=== PATIENT | female | born 1945 | race Caucasian/White ===

== ENCOUNTER → 2019-09-25 11:00 | Outpatient (CLI) | payer OTHER, SELFPAY ==
--- NOTE | ~2019-09-25 | XR_ITS ---
XR chest 2V DATE: 09/25/2019 11:20 INDICATION: Dyspnea on exertion TECHNIQUE: PA and lateral views COMPARISON: 03/14/2005 PA and lateral views FINDINGS: There is cardiomegaly with left ventricular enlargement. There is approximately 15 x 25 mm ill-defined density overlying the right upper lobe, appearing more prominent since 03/14/2005; CT thorax should be considered. Otherwise the lungs appear clear of infiltrate or consolidation. There is bilateral hyperinflation. N o pleural effusion or pulmonary vascular congestion or pneumothorax. [place] devices noted in the proximal right humerus. There is diffuse osteopenia. IMPRESSION: Indeterminate opacity overlying right upper lobe; consider CT thorax for further evaluati on Bilateral hyperinflation Cardiomegaly, left ventricular enlargement Osteopenia Reviewed, dictated and finalized at location B. IMPRESSION: Indeterminate opacity overlying right upper lobe; consider CT thora x for further evaluation Bilateral hyperinflation Cardiomegaly, left ventricular enlargement Osteopenia
== END ==
PROVIDERS: PCP Family Medicine Adolescent Medicine; Visit Provider Family Medicine Adolescent Medicine
DX: R06.00 Dyspnea, unspecified (principal); I51.7 Cardiomegaly; M85.80 Other specified disorders of bone density and structure, unspecified site
CPT/HCPCS: 71046

== ENCOUNTER → 2019-09-29 08:43 | Outpatient (CLI) | payer OTHER, SELFPAY ==
--- NOTE | ~2019-09-29 | CT_ITS ---
EXAMINATION: CT chest wo con DATE: 09/29/2019 09:14 INDICATION: Right upper lobe nodule TECHNIQUE: Computed tomography (CT) of the chest was performed without intravenous contrast. The dose -length product (DLP) was 139.27 mGy-cm. Automated exposure control and iterative reconstruction tech nique were employed. COMPARISON: Chest radiograph, 09/25/2019 FINDINGS: There is a 2.9 x 2.7 cm some solid nodule of the right upper lobe, without solid nodular co mponent, corresponding to chest radiographic finding in question. A similar appearing 1.7 x 1.0 cm mondragon bsolid nodule is seen in the right lung apex. There is a 1.1 x 0.7 cm subsolid nodule of the left upp er lobe on image 22. There is no pleural effusion or pneumothorax. No pathologically enlarged thoraci c lymph nodes are identified. The heart size is normal. Calcified coronary artery atherosclerosis is noted. Suture anchors are noted in the right humeral head. There is mild thoracic spondylosis. IMPRESSION: 1. Subsegmental nodule of the right upper lobe corresponding to radiographic finding in question with additional subsegmental nodules as detailed, possibly infectious or inflammatory. Recommend follow-u p low-dose chest CT in three months. Reviewed, dictated and finalized at location B. IMPRESSION: 1. Subsegmental nodule of the right upper lobe corresponding to radiographic fi nding in question with additional subsegmental nodules as detailed, possibly in fectious or inflammatory. Recommend follow-up low-dose chest CT in three months .
== END ==
PROVIDERS: PCP Family Medicine Adolescent Medicine; Visit Provider Family Medicine Adolescent Medicine
DX: R91.1 Solitary pulmonary nodule (principal)
CPT/HCPCS: 71250

== ENCOUNTER → 2019-12-12 08:16 | Outpatient (CLI) | payer OTHER, SELFPAY ==
--- NOTE | ~2019-12-12 | CT_ITS ---
EXAMINATION: CT chest wo con DATE: 12/12/2019 08:31 INDICATION: Right upper lung nodule TECHNIQUE: Computed tomography (CT) of the chest was performed without intravenous contrast. The dose -length product was 130.63 mGy-cm. Automated exposure control and iterative reconstruction technique were employed. COMPARISON: CT dated 09/29/2019 FINDINGS: No thoracic lymphadenopathy. Small pericardial effusion. No significant pleural effusion. H eart size normal. There is atherosclerosis of the aorta and coronary arteries. The upper abdomen is u nremarkable. There has been near complete resolution of patchy upper lobe predominant groundglass opa cities, most likely infectious/inflammatory. There is right upper lobe atelectasis/scarring anteriorl y. Mild thoracic spondylosis with accentuated kyphosis. IMPRESSION: 1. Near complete resolution of patchy groundglass opacities predominantly affecting the right upper l obe, most likely resolving infectious/inflammatory process. Reviewed, dictated and finalized at location B. IMPRESSION: 1. Near complete resolution of patchy groundglass opacities predominantly affec ting the right upper lobe, most likely resolving infectious/inflammatory proces s.
== END ==
PROVIDERS: PCP Family Medicine Adolescent Medicine; Visit Provider Family Medicine Adolescent Medicine
DX: R91.1 Solitary pulmonary nodule (principal)
CPT/HCPCS: 71250

== ENCOUNTER 2020-01-24 13:18 | Outpatient (CLI) | payer OTHER, SELFPAY ==
--- NOTE | ~2020-01-24 | CT_ITS ---
EXAMINATION: CTA abdomen DATE: 01/24/2020 14:07 INDICATION: Hypertension. TECHNIQUE: Computed tomographic angiography (CTA) of the abdomen was performed with 100 mL Omnipaque- 350 intravenous contrast. Automated exposure control and iterative reconstruction technique were empl oyed. The dose-length product was 121.94 mGy-cm. Maximum intensity projection 3D-reconstructions of t he aorta and other arteries were constructed by the technologist on a separate workstation. COMPARISON: None. FINDINGS: The visualized portions of the lung bases demonstrate mild atelectasis. No pleural effusion . There are bilateral posterior diaphragmatic hernias containing fat. Cardiomegaly is noted. No peric ardial effusion. The liver, gallbladder, spleen, pancreas, and adrenal glands are normal. There is co rtical thinning of the kidneys. There are cysts in left kidney measuring up to 4.2 cm. There are no d ilated loops of bowel. There are no pathologically enlarged lymph nodes. There is no free intraperito maximiliano fluid. There is a small sliding hiatal hernia. There is mild aortic atherosclerosis. There is mi ld stenosis of celiac axis, superior mesenteric artery, and the renal arteries. There is no significa nt stenosis of inferior mesenteric artery. There is moderate lumbar spondylosis. There is a hemangiom a in L3 vertebral body. IMPRESSION: 1. No hemodynamically significant renal artery stenosis. 2. Small sliding hiatal hernia. Reviewed, dictated and finalized at location A. N RESOURCES BENEFITS COORDINATOR
[2020-01-24 13:52] LABS: Estimated Glomerular Filt Rate 44
== END 2020-01-24 13:19 | disposition home or self-care (01) ==
PROVIDERS: PCP Family Medicine Adolescent Medicine; Visit Provider Family Medicine Adolescent Medicine
DX: I10 Essential (primary) hypertension (principal); K44.9 Diaphragmatic hernia without obstruction or gangrene
CPT/HCPCS: 74175; Q9967

== ENCOUNTER → 2020-06-15 09:59 | Outpatient (CLI) | payer OTHER, SELFPAY ==
--- NOTE | ~2020-06-15 | DEXA_ITS ---
Bone Density Report Name: Tuyet Iverson Age: 75 Sex: Female Ethnicity: White Date of : 1945 Indication: osteopenia; asthma or emphysema; hysterectomy; postmenopausal Referring Provider: NAIF RODRIGUEZ Study: Bone densitometry was performed. Exam Date: June 15, 2020 Accession number: [id number] Bone Density: Region BMD T-score Z-score Classification AP Spine (L1-L4) 0.936 -1.0 1.4 Normal Femoral Neck (Left) 0.618 -2.1 0.0 Osteopenia Total Hip (Left) 0.783 -1.3 0.5 Osteopenia Femoral Neck (Right) 0.592 -2.3 -0.2 Osteopenia Total Hip (Right) 0.759 -1.5 0.3 Osteopenia Total Hip Mean 0.771 -1.4 0.4 Osteopenia World Health Organization criteria for BMD impression classify patients as: Normal (T-score at or above -1.0), Osteopenia (T-score between -1.0 and -2.5), or Osteoporosis (T-score at or below -2.5). 10-year Fracture Risk(1): Major Osteoporotic Fracture 15% Hip Fracture 4.3% Reported Risk Factors: [place] (), Neck BMD=0.592, BMI=23.1 (1) FRAX(R) Version 3.08. Fracture probability calculated for an untreated patient. Fracture probability may be lower if the patient has received treatment. Previous Exams: Region Exam Age BMD T-score BMD Change BMD Change Date g/cm2 vs Baseline vs Previous AP Spine(L1-L4) 06/15/2020 75 0.936 -1.0 -0.051* -0.030* 08/03/2016 71 0.966 -0.7 -0.021 0.050* 08/08/2013 68 0.916 -1.2 -0.071* -0.044* 11/04/2009 64 0.959 -0.8 -0.027* -0.027* 10/17/2004 59 0.987 -0.5 Total Hip(Left) 06/15/2020 75 0.783 -1.3 -0.095* -0.027 08/03/2016 71 0.810 -1.1 -0.068* 0.065* 08/08/2013 68 0.745 -1.6 -0.133* -0.011 11/04/2009 64 0.756 -1.5 -0.122* -0.122* 10/17/2004 59 0.878 -0.5 Total Hip(Right) 06/15/2020 75 0.759 -1.5 -0.062* -0.016 08/03/2016 71 0.775 -1.4 -0.046* 0.047* 08/08/2013 68 0.727 -1.8 -0.093* -0.023 11/04/2009 64 0.750 -1.6 -0.070* -0.070* 10/17/2004 59 0.821 -1.0 *Denotes significance at 95% confidence level, LSC for AP Spine = 0.022 g/cm2, LSC for Total Hip = 0.027 g/cm2 Clinical Information Provided by Patient: Has used the following medications: Vitamin D, Calcium Has the following medical conditions: Asthma or Emphysema, Hysterectomy Patient maximum height was 61 Menopause Ag
--- NOTE | ~2020-06-15 | MM_ITS ---
EXAMINATION: MM screening wally BI w ena HISTORY: Screening mammogram TECHNIQUE: Craniocaudal and mediolateral oblique 3-D tomosynthesis images were obtained and synthetic 2-D images were generated. CAD analysis was submitted and interpreted. COMPARISON: 01/27/2018 bilateral digital screening mammogram 09/04/2015 diagnostic left digital mammogram and limited left breast ultrasound 08/23/2015 bilateral digital screening mammogram BREAST PARENCHYMAL COMPOSITION: The breasts are heterogeneously dense, which may obscure small masses . FINDINGS: There is a 5.7 x 7.6 mm circumscribed opacity in the upper outer left breast, with halo sig n, most consistent with benign process, likely a cyst. There is no evidence of suspicious mass, calci fication, or architectural distortion to suggest malignancy in either breast. There has been no suspi cious interval change. IMPRESSION: 1. No mammographic evidence of malignancy. 2. Recommend routine screening mammography in one year. BI-RADS Category 2: Benign finding(s). Reviewed, dictated and finalized at location A.
== END ==
PROVIDERS: PCP Family Medicine Adolescent Medicine; Visit Provider Family Medicine Adolescent Medicine
DX: Z12.31 Encounter for screening mammogram for malignant neoplasm of breast (principal); Z78.0 Asymptomatic menopausal state; M85.89 Other specified disorders of bone density and structure, multiple sites
CPT/HCPCS: 77063; 77067; 77080

== ENCOUNTER → 2020-09-23 12:05 | Outpatient (CLI) | payer OTHER, SELFPAY ==
--- NOTE | ~2020-09-23 | XR_ITS ---
XR knee RT min 4V DATE: 09/23/2020 12:19 INDICATION: Right knee pain TECHNIQUE: [place] and standing AP, PA and lateral views COMPARISON: None FINDINGS: There is slight periarticular spurring of the patella. There is moderate loss of height of the medial compartment joint space. No fracture or dislocation or joint effusion. No periosteal reaction or bone destruction or radiopaqu e intra-articular loose body. IMPRESSION: Mild osteoarthritis Reviewed, dictated and finalized at location B. IMPRESSION: Mild osteoarthritis
== END ==
PROVIDERS: PCP Family Medicine Adolescent Medicine; Visit Provider Physician Assistant
DX: M25.561 Pain in right knee (principal); M18.11 Unilateral primary osteoarthritis of first carpometacarpal joint, right hand
CPT/HCPCS: 73564

== ENCOUNTER → 2021-06-17 10:09 | Outpatient (CLI) | payer OTHER, SELFPAY ==
--- NOTE | ~2021-06-17 | MM_ITS ---
EXAMINATION: MM screening wally BI w ena HISTORY: Screening TECHNIQUE: Craniocaudal and mediolateral oblique 3-D tomosynthesis images were obtained and synthetic 2-D images were generated. CAD analysis was submitted and interpreted. COMPARISON: Comparison to multiple prior studies sequentially, with oldest reviewed study dated 02/2015. BREAST PARENCHYMAL COMPOSITION: The breasts are heterogeneously dense, which may obscure small masses . FINDINGS: There is no evidence of suspicious mass, calcification, or architectural distortion to sugg est malignancy in either breast. There has been no suspicious interval change. IMPRESSION: 1. No mammographic evidence of malignancy. 2. Recommend routine screening mammography in one year. BI-RADS Category 1: Negative Reviewed, dictated and finalized at location A.
== END ==
PROVIDERS: PCP Family Medicine Adolescent Medicine; Visit Provider Physician Assistant
DX: Z12.31 Encounter for screening mammogram for malignant neoplasm of breast (principal)
CPT/HCPCS: 77063; 77067

== ENCOUNTER → 2021-06-24 14:52 | Outpatient (CLI) | payer OTHER, SELFPAY ==
--- NOTE | ~2021-06-24 | XR_ITS ---
EXAMINATION: XR chest 2V Exam Date/Time: 06/24/2021 15:08 CDT CLINICAL HISTORY: R06.00 - Dyspnea, unspecified Comparison: 09/25/2019.. RESULT: Lines, tubes, and devices: Right humeral head soft tissue anchors. Lungs and pleura: Clear. Cardiomediastinal silhouette: Stable cardiomediastinal silhouette. Other: No acute osseous or upper abdominal finding. IMPRESSION: No acute cardiopulmonary process Reviewed, dictated and finalized at location K.
== END ==
PROVIDERS: PCP Family Medicine Adolescent Medicine; Visit Provider Family Medicine Adolescent Medicine
DX: R06.00 Dyspnea, unspecified (principal)
CPT/HCPCS: 71046

== ENCOUNTER → 2021-07-19 09:05 | Outpatient (CLI) | payer OTHER, SELFPAY ==
--- NOTE | ~2021-07-19 | MR_ITS ---
EXAMINATION: MR knee RT wo con DATE: 07/19/2021 09:44 INDICATION: Right knee pain. TECHNIQUE: Magnetic resonance imaging (MRI) of the right knee was performed without intravenous contr ast. Sequences included axial PD-weighted FS FSE, coronal PD-weighted FSE and PD-weighted FS FSE, sag ittal PD-weighted FSE, and sagittal T2-weighted FS FSE. COMPARISON: Right knee radiographs 09/23/2020 FINDINGS: Medial compartment: There is a complex tear involving body and posterior horn of medial meniscus. There is partial-thickn ess cartilage loss of tibial condyle, deep at the central and medial articular surface where there is mild subchondral edema-like marrow signal intensity. There is full-thickness cartilage loss of femor al condyle involving the posterior articular surface. There is extensive partial thickness cartilage loss of femoral condyle. Osteophytes are noted. Lateral compartment: Lateral meniscus is normal. There is cartilage surface irregularity of tibial condyle and femoral con dyle. Osteophytes are noted. Patellofemoral compartment: There is deep partial thickness cartilage loss of patellar median ridge and medial facet with mild mondragon bchondral edema-like marrow signal intensity. There is shallow partial-thickness cartilage loss of tr ochlea. Osteophytes are noted. Ligaments and tendons: The anterior and posterior cruciate ligaments are normal. There are changes of prior sprains of media l collateral ligament and fibular collateral ligament characterized by thickening and increased signa l intensity proximally. There is mild patellar tendinopathy. Fluid: There is a moderate-sized knee joint effusion. There is a large ruptured Mccord's cyst. IMPRESSION: 1. Severe chondrosis of medial compartment, moderate chondrosis of patellofemoral compartment, and mi ld chondrosis of lateral compartment. 2. Complex tear of medial meniscus. 3. Moderate-sized knee joint effusion. 4. Large ruptured Mccord's cyst. Reviewed, dictated and finalized at location A. IMPRESSION: 1. Severe chondrosis of medial compartment, moderate chondrosis of patellofemor al compartment, and mild chondrosis of lateral compartment. 2. Complex tear of medial meniscus. 3. Moderate-sized knee joint effusion. 4. Large ruptured Mccord's cyst.
== END ==
PROVIDERS: PCP Family Medicine Adolescent Medicine; Visit Provider Family Medicine Adolescent Medicine
DX: M25.561 Pain in right knee (principal); M22.2X1 Patellofemoral disorders, right knee; S83.231A Complex tear of medial meniscus, current injury, right knee, initial encounter; M25.461 Effusion, right knee; M66.0 Rupture of popliteal cyst
CPT/HCPCS: 73721

== ENCOUNTER 2021-09-20 08:27 | Emergency (ER) | payer OTHER, SELFPAY ==
--- NOTE | ~2021-09-20 | XR_ITS ---
XR chest 2V DATE: 09/20/2021 09:02 INDICATION: Cough. History of asthma, hypertension. TECHNIQUE: PA and lateral views COMPARISON: 06/24/2021 2 view chest FINDINGS: Bilateral hyperinflation with increased retrosternal airspace, flattening the diaphragm, co nsistent with COPD. No pulmonary infiltrate or consolidation, pleural effusion or pulmonary vascular congestion or pneumothorax. Cardiomegaly. Osteopenia. IMPRESSION: COPD, cardiomegaly No active pulmonary disease Reviewed, dictated and finalized at location A.
[2021-09-20 08:33] VITALS: BP 142/74; PULSE 90; RESP 16; TEMP 37.7; O2SAT 100
--- NOTE | 2021-09-20 08:40 | ED.URI ---
HPI - URI/Sore Throat General Chief Complaint: Upper Respiratory Infection Stated Complaint: SORE THROAT/RUNNY NOSE/DIZZY/+ COVID Time Seen by Provider: 09/20/21 08:42 Source: patient and RN notes reviewed Mode of arrival: ambulatory Limitations: no limitations History of Present Illness HPI Narrative: 76-year-old female with history of asthma presents with concern for positive COVID test. She reports her symptoms started yesterday with fatigue, body aches, dizziness, sore throat, nasal congestion. She reports she took an at-home COVID test today that was positive. She is interested in a COVID antiviral medication. She denies cough, shortness of breath. She denies needing to use her rescue inhaler since she has had symptoms. MD elicited complaint: sore throat and nasal congestion Related Data Home Medications Medication Instructions Recorded Confirmed aspirin 81 mg tablet,delayed 81 mg PO DAILY 06/24/21 09/20/21 release (Adult Aspirin Regimen) coenzyme Q10 75 mg capsule (Ultra 75 mg PO DAILY 06/24/21 09/20/21 CoQ10) fluticasone 500 mcg-salmeterol 50 1 inh inhalation QHS 06/24/21 09/20/21 mcg/dose blistr powdr for inhalation (Wixela Inhub) Allergies Allergy/AdvReac Type Severity Reaction Status Date / Time No Known Allergies Allergy Unknown Verified 09/20/21 08:34 Review of Systems Review of Systems: CONSTITUTIONAL: Reports malaise, fatigue. Denies chills, sweats, or fever. EYES: Denies visual changes, redness, or discharge. ENT: Reports rhinorrhea, congestion, sore throat. Denies sinus pain, otalgia CARDIOVASCULAR: Denies chest pain, palpitations, or edema. RESPIRATORY: Denies cough. Denies dyspnea. GASTROINTESTINAL: Denies abdominal pain, nausea, vomiting, diarrhea SKIN: Denies rash or itching. MUSCULOSKELETAL: Reports myalgia. NEUROLOGIC: Denies headache. All systems reviewed & are unremarkable except as noted in HPI and below [facility] Past Medical History Medical History (Updated 09/20/21 @ 09:23 by Seble Meyers NP) Aortic atherosclerosis CT scan 11/2019 Asthma Benign hypertension with CKD (chronic kidney disease) stage III Bilateral carotid artery stenosis 06/2018 CAD (coronary artery disease) CT scan 09/2019 High cholesterol Hypertension Insomnia Major depressive disorder, recurrent, mild Mild persistent asthma Osteopenia Peripheral neuropathy Pure hypercholesterolemia, unspecified Stage 3a chronic kidney disease (CKD) Urge incontinence of urine Wears glasses Surgical History Surgical History History of foot surgery 2008, sunitaes History of hysterectomy History of repair of rectocele History of repair of rotator cuff 2017, right Family History Family History (Updated 08/21/21 @ 10:24 by Chelsie Perry, RT(R)) Unknown Cancer Heart disease Daughter Breast cancer Father Hypercholesteremia Mother Hypercholesteremia Other Asthma Diabetes mellitus Hypertension Social History Social History (Updated 08/21/21 @ 10:24 by Chelsie Perry, RT(R)) Smoking status: Never smoker Second hand tobacco smoke exposure: No Alcohol intake: current Alcohol use details: socially Substance use: never Substance use type: does not use and tranquilizers Gender identity (if verbalized by the patient): Female Sexual Orientation (if Verbalized by the Patient): Straight or Heterosexual Spiritual care concerns: No Agree to blood products: Yes Comments At time of signature, agree with nursing past medical, surgical, social and family history. There is no relevant family history pertinent to the presenting complaint Exam Narrative: GENERAL: Nontoxic-appearing and in no acute distress. HEAD: Normocephalic EYES: PERRLA, conjunctivae clear ENT: Nares clear. Mucous membranes moist. TM pearly ca with dull light reflex bilaterally; no tragal tenderness. Oropharynx not erythematous without les
== END 2021-09-20 09:30 | disposition home or self-care (01) ==
PROVIDERS: Emergency Provider Nurse Practitioner; PCP Family Medicine Adolescent Medicine
DX: U07.1 COVID-19 (principal); I70.0 Atherosclerosis of aorta; J45.909 Unspecified asthma, uncomplicated; I12.9 Hypertensive chronic kidney disease with stage 1 through stage 4 chronic kidney disease, or unspecified chronic kidney disease; N18.30 Chronic kidney disease, stage 3 unspecified; E78.00 Pure hypercholesterolemia, unspecified; I25.10 Atherosclerotic heart disease of native coronary artery without angina pectoris; M81.0 Age-related osteoporosis without current pathological fracture; G62.9 Polyneuropathy, unspecified; Z79.82 Long term (current) use of aspirin; I65.29 Occlusion and stenosis of unspecified carotid artery; F32.9 Major depressive disorder, single episode, unspecified
CPT/HCPCS: 71046; 99213; G0463

== ENCOUNTER 2022-06-13 11:18 | Emergency (ER) | payer OTHER, SELFPAY ==
[2022-06-13 11:43] VITALS: BP 169/65; PULSE 60; RESP 16; TEMP 36.8; O2SAT 98
--- NOTE | 2022-06-13 11:52 | PC.NURSE ---
pt and family approached desk and states they are deciding to leave but will come back if new or worsening symptoms.
== END 2022-06-13 12:02 | disposition left against medical advice (07) ==
LOC: ANHED 11:57
PROVIDERS: PCP Family Medicine Adolescent Medicine
DX: I10 Essential (primary) hypertension (principal)
CPT/HCPCS: 99199

== ENCOUNTER → 2022-07-24 10:14 | Outpatient (CLI) | payer OTHER, SELFPAY ==
--- NOTE | ~2022-07-24 | MM_ITS ---
EXAMINATION: MM screening wally BI w ena HISTORY: Screening mammogram TECHNIQUE: Craniocaudal and mediolateral oblique 3-D tomosynthesis images were obtained and synthetic 2-D images were generated. CAD analysis was submitted and interpreted. COMPARISON: June 17, 2021, June 15, 2020, February 10, 2018 bilateral screening mammogram examinati ons BREAST PARENCHYMAL COMPOSITION: The breasts are heterogeneously dense, which may obscure small masses . FINDINGS: Circumscribed 1.8 mm opacity is noted in the mid to upper inner right breast Approximate 2.2 x 3.5 mm circumscribed opacity is noted in the lower inner left breast. The moderately dense nodular fibroglandular stroma may obscure additional smaller masses. Bilateral d iagnostic mammography and ultrasound examination are recommended. IMPRESSION: 1. Possible bilateral breast masses 2. Bilateral diagnostic mammography and ultrasound examination are recommended BI-RADS Category 0: Incomplete: Needs additional imaging evaluation. Reviewed, dictated and finalized at location A.
== END ==
PROVIDERS: PCP Family Medicine Adolescent Medicine; Visit Provider Family Medicine Adolescent Medicine
DX: Z12.31 Encounter for screening mammogram for malignant neoplasm of breast (principal)
CPT/HCPCS: 77063; 77067

== ENCOUNTER → 2022-09-17 08:43 | Outpatient (CLI) | payer OTHER, SELFPAY ==
--- NOTE | ~2022-09-17 | MMUS_ITS ---
EXAMINATION: MM diagnostic wally BI w ena, US breast BI complete HISTORY: Possible bilateral breast masses reported on 07/24/2022 bilateral screening mammogram examinat ion TECHNIQUE: Additional 3-D tomosynthesis images of both breasts were performed and synthetic 2-D image s were generated. CAD analysis was submitted and interpreted. High resolution complete bilateral alvin st ultrasound examination including all 4 quadrants and subareolar areas was performed. COMPARISON: 07/24/2022 bilateral screening mammogram FINDINGS: MAMMOGRAPHIC FINDINGS: 4.6 mm low-density circumscribed benign-appearing opacity is noted posteriorly in the outer mid left breast (MLO Tomosynthesis image 14/39). There is a focal somewhat ill-defined approximately 3.3 x 6.9 mm opacity in the anterior lower outer left breast (MLO Tomosynthesis image 16/39). The heterogeneously dense stroma of both breasts may obscure additional masses. Bilateral complete br east ultrasound examination was performed. ULTRASOUND: No suspicious mass or suspicious shadowing of either breast is detected. Right breast: 1:00 6 cm from nipple: 1.6 x 3.4 x 3.3 mm parallel circumscribed sonolucency consistent with small cy st 3:00 5 cm from nipple: 1.2 x 2.1 x 2.1 mm circumscribed hypoechoic lesion without internal vascularit y or posterior shadowing, likely benign 7:00 6 cm from nipple: 2.1 x 2.4 x 2.8 mm probable septated cyst Left breast: 3:00 6 cm from nipple: Circumscribed 3.8 x 4.7 x 4.6 mm sonolucency, consistent with benign cyst 8:00 5 cm from nipple: 2.4 x 2.8 x 3.5 mm circumscribed sonolucency consistent with small cyst IMPRESSION: 1. Benign findings 2. Routine mammographic screening is recommended BI-RADS Category 2: Benign finding(s). Reviewed, dictated and finalized at location L. IMPRESSION: 1. Benign findings 2. Routine mammographic screening is recommended BI-RADS Category 2: Benign finding(s).
== END ==
PROVIDERS: PCP Family Medicine Adolescent Medicine; Visit Provider Family Medicine Adolescent Medicine
DX: R92.8 Other abnormal and inconclusive findings on diagnostic imaging of breast (principal)
CPT/HCPCS: 76641; 77062; 77066; G0279

== ENCOUNTER 2022-12-31 11:32 | Outpatient (CLI) | payer OTHER, SELFPAY ==
--- NOTE | ~2022-12-31 | XR_ITS ---
Right Knee Technique: AP, lateral, and sunrise views were obtained. Clinical History: Pain Findings: No fracture or dislocation is seen. Osseous alignment is anatomic. There is mild degenerati ve change of the medial compartment. Soft tissues are unremarkable. No joint effusion is seen. Impression: Mild degenerative change of the medial compartment. Reviewed, dictated and finalized at location . END ENGINEER Impression: Mild degenerative change of the medial compartment.
== END 2022-12-31 11:33 ==
LOC: MICIMG 11:34
PROVIDERS: PCP Family Medicine Adolescent Medicine; Visit Provider Family Medicine Adolescent Medicine
DX: M25.561 Pain in right knee (principal)
CPT/HCPCS: 73562

== ENCOUNTER 2023-02-09 12:36 | Outpatient (CLI) | payer OTHER, SELFPAY ==
--- NOTE | 2023-02-09 12:53 | ECG_ITS ---
Measurements Intervals [place] Rate: 56 P: 43 RI: 201 QRS: 29 QRSD: 94 T: 42 QT: 418 QTc: 407 Interpretive Statements SINUS BRADYCARDIA NO PREVIOUS ECG AVAILABLE FOR COMPARISON Electronically Signed On 02-09-2023 13:58:40 VOLUMETRIC WEIGHER by Evan Weeks M.D.
[2023-02-09 13:05] LABS: Hematocrit 36.3 % (37.0-47.0); Hemoglobin 11.7 g/dL (12.0-15.0)
[2023-02-09 13:14] LABS: Albumin Level 4.2 g/dL (3.5-5.1); Estimated Glomerular Filt Rate 48; Glucose 97 mg/dL (65-110)
== END 2023-02-09 12:37 | disposition home or self-care (01) ==
PROVIDERS: PCP Family Medicine Adolescent Medicine; Visit Provider Orthopaedic Surgery
DX: E78.00 Pure hypercholesterolemia, unspecified (principal); I12.9 Hypertensive chronic kidney disease with stage 1 through stage 4 chronic kidney disease, or unspecified chronic kidney disease; N18.30 Chronic kidney disease, stage 3 unspecified; R06.09 Other forms of dyspnea
CPT/HCPCS: 36415; 82040; 82565; 82947; 85014; 85018; 93005

== ENCOUNTER 2023-04-26 16:01 | Outpatient (CLI) | payer OTHER, SELFPAY ==
--- NOTE | ~2023-04-26 | XR_ITS ---
EXAMINATION: XR chest 2V DATE: 04/26/2023 16:17 INDICATION: Shortness of breath TECHNIQUE: PA and lateral views of the chest are obtained. COMPARISON: 09/20/2021 FINDINGS: The lungs are free of acute opacities. No pleural effusion or pneumothorax. Cardiomegaly is noted. There is moderate thoracic spondylosis. Suture anchors are noted in the right humeral head. IMPRESSION: 1. No acute cardiopulmonary abnormality. Reviewed, dictated and finalized at location L. ET PROTECTION SPECIALIST
== END 2023-04-26 16:02 ==
PROVIDERS: PCP Family Medicine Adolescent Medicine; Visit Provider Family Medicine Adolescent Medicine
DX: R06.00 Dyspnea, unspecified (principal)
CPT/HCPCS: 71046

== ENCOUNTER 2023-05-12 13:41 | Outpatient (CLI) | payer OTHER, SELFPAY ==
[2023-05-12 15:05] LABS: Basophils Percent Auto 0.3 % (0.2-1.2); Eosinophils Percent Auto 0.2 % (0-4.4); Hematocrit 37.3 % (37.0-47.0); Hemoglobin 11.8 g/dL (12.0-15.0); Immature Granulocyte Absolute 0.04 K/mm3 (0.00-0.031); Immature Granulocyte Percent A 0.4 % (0-0.5); Lymphocytes Absolute Auto 2.06 K/mm3 (0.9-3.2); Lymphocytes Percent Auto 18.2 % (18.3-44.2); Mean Corpuscular HGB Conc 31.6 g/dl (32-36); Mean Corpuscular Hemoglobin 31.6 pg (26-34); Mean Corpuscular Volume 99.7 fl (80-100); Mean Platelet Volume 8.9 fl (7.4-10.4); Monocytes Absolute Auto 0.7 K/mm3 (0.1-0.6); Monocytes Percent Auto 6.2 % (2.6-8.5); Neutrophils Absolute Auto 8.5 K/mm3 (1.3-6.7); Neutrophils Percent Auto 74.7 % (45.5-73.1); Platelet Count Result 291 k/mm3 (150-375); Red Blood Count 3.74 M/mm3 (4.2-5.4); Red Cell Distribution Width 13.8 % (11.5-14.5); White Blood Count 11.3 K/mm3 (4.5-10.0)
== END 2023-05-12 13:42 | disposition home or self-care (01) ==
LOC: ANHSURGERY 13:46
PROVIDERS: PCP Family Medicine Adolescent Medicine; Visit Provider Orthopaedic Surgery
DX: Z01.818 Encounter for other preprocedural examination (principal); M17.11 Unilateral primary osteoarthritis, right knee
CPT/HCPCS: 36415; 85025

== ENCOUNTER 2023-05-25 01:00 | Day surgery (SDC) | payer OTHER, SELFPAY ==
--- NOTE | 2023-05-12 14:11 | PC.NURSE ---
Report to the Outpatient Waiting Room, entrance under the green pavilion located off [facility], at time ___30____ on date __05/25/23 . Planned Procedure Time: __1030 . Time changes happen often and if your time is changed the preop area will call you the afternoon before. - You and your visitor will be asked to self-screen and do not enter if you have any COVID symptoms. - A mask is optional within the hospital at this time. Patients may have clear liquids (water, carbonated beverages, clear teas, apple juice) until 3 hours prior to surgery (7:30 AM)with a maximum of 20 ounces. - No food from midnight until time of surgery - Infants may have breast milk until 4 hours before surgery, formula 6 hours prior to surgery. - Children will be allowed to drink immediately following surgery. If applicable, please bring a bottle or sippy cup to assist with drinking. Juice, water, soda, and popsicles are readily available. For infants on formula, please bring formula the day of surgery. Pacifiers are allowed. Take the following medications with a SIP of water the morning of surgery: WIXELA INHALER AND SPIRIVA INHALER DO NOT STOP ANY OF YOUR OTHER PRESCRIPTION MEDICATIONS PRIOR TO SURGERY ?EXCEPT THE FOLLOWING Medications to discontinue per physician ____ALL VITAMINS AND SUPPLEMENTS 3 DAYS PRE OP .LAST DOSE 05/21/23 HOLD ASPIRIN 7 DAYS PRE OP PER DR SANTIAGO LAST DOSE 05/17/23 Please no make-up, nail estonian, hairspray, perfume, deodorant, or body powder the day of surgery. No jewelry (including any body piercings) or valuables the day of surgery, leave them at home. Please take a shower or bath the night before, or the morning of, surgery with an antibacterial soap. Wear comfortable, loose fitting clothing. Children are encouraged to wear pajamas. - Jewelry must be removed prior to entering the operating room. Rings and piercings that are not removed may be cut off. - The hospital will not accept responsibility for valuables. - Please leave all valuables, including medications, at home the day of surgery. If you are going home after surgery, a licensed truck driver's offsider must drive you home. - NO public transportation without another adult if you receive anesthesia. - We recommend that an adult stay with you for 24 hours following discharge. - We also recommend that you do not drive, make important decision, drink alcoholic beverages, or take any drugs that were not prescribed by your health care provider for at least 24 hours after your discharge time. Follow any additional instructions given to you from your surgeon. If you or anyone in your household have experienced Covid symptoms in the past week, please notify your surgeon or the nurse liaison at the phone number below for possible testing. VERBAL AND WRITTEN instructions given to ___PATIENT and asked if any additional questions and then verbalized understanding. Patient advised to call surgeon office or pre surgery nurse liaison [phone] if any additional questions.
[2023-05-12 14:30] VITALS: BP 127/63; PULSE 61; RESP 18; TEMP 36.8; O2SAT 98; BMI 22.4
[2023-05-25] VITALS (19 sets, daily range): BP systolic 106–142; BP diastolic 41–71; PULSE 52–68; RESP 10–18; TEMP 36.4–36.9; O2SAT 96–100
--- NOTE | ~2023-05-25 | XR_ITS ---
EXAM: [id number] DATE: 05/25/2023 12:18 HISTORY: RT PARTIAL KNEE ARTHROPLASTY . COMPARISON: None available. FINDINGS: Status post medial compartment hemiarthroplasty. Gas and fluid over the joint space. Anter ior bandage material. No unexpected radiopaque foreign body. IMPRESSION: Expected postsurgical changes, with no radiographic evidence of procedure or hardware rel ated complication. Reviewed, dictated and finalized at location K. IMPRESSION: Expected postsurgical changes, with no radiographic evidence of pro cedure or hardware related complication.
[2023-05-25] MEDS: ACETAMINOPHEN 500 MG TABLET 1000 MG PO ×3 (08:37→22:56)
[2023-05-25] MEDS: LACTATED RINGERS 1,000 ML 30 ML IV CONT ×2 (08:50→12:13)
--- NOTE | 2023-05-25 09:12 | WPDANESEPPF ---
Anes - Initial Pre Proc Eval Procedure: Operation Date: 05/25/23 10:30 Proposed Procedures p Right Partial Knee Arthroplasty - Denis Kelly MD Date/Time: 05/25/23 09:12 Surgeon: Denis Kelly MD Pre Op Diagnosis: primary oa right knee Patient Data Age: 77 Gender: F Height: 1.55 m Weight: 53.6 kg Last Vital Signs Temp 36.9 C 05/25/23 08:44 Pulse 58 L 05/25/23 08:44 Resp 16 05/25/23 08:44 BP 139/60 05/25/23 08:44 Pulse Ox 99 05/25/23 08:44 O2 Del Method Room Air 05/25/23 08:44 Allergies Allergy/AdvReac Type Severity Reaction Status Date / Time nystatin [From Bio-Statin] AdvReac Unknown leg cramp Verified 05/25/23 08:29 Home Medications Medication Instructions Recorded Confirmed Type aspirin 81 mg tablet,delayed 81 mg PO DAILY 06/24/21 05/25/23 History release (Adult Aspirin Regimen) calcium carbonate 500 mg calcium 1,200 mg PO DAILY 11/06/21 05/25/23 History (1,250 mg) chewable tablet (Calcium 500) magnesium citrate 100 mg capsule 100 mg PO DAILY 11/06/21 05/25/23 History potassium citrate 99 mg capsule 99 mg PO .QD 11/06/21 05/25/23 History albuterol sulfate 90 mcg/actuation 1 puff inhalation Q4H PRN 07/15/22 05/25/23 Rx aerosol inhaler shortness of breath or wheezing #8.5 grams fluticasone 500 mcg-salmeterol 50 1 inh inhalation BID #180 ea 08/28/22 05/25/23 Rx mcg/dose blistr powdr for inhalation (Wixela Inhub) tiotropium bromide 1.25 2 puff inhalation QAM #4 grams 10/26/22 05/25/23 Rx mcg/actuation mist for inhalation tramadol 50 mg tablet See Rx Instructions PO QID PRN 01/04/23 05/25/23 Rx pain #60 tabs rosuvastatin 5 mg tablet See Rx Instructions .Route 02/05/23 05/25/23 Rx .COMPLEX #90 tabs amlodipine 5 mg tablet 5 mg PO HS 05/12/23 05/25/23 History propranolol 80 mg capsule,24 80 mg PO HS 05/12/23 05/25/23 History hr,extended release lorazepam 1 mg tablet 1 mg PO QHS PRN sleep #30 tabs 05/13/23 05/25/23 Rx trazodone 150 mg tablet See Rx Instructions .Route 05/14/23 05/25/23 Rx .COMPLEX #90 tabs Patient hx anesthesia problems: none Family hx anesthesia problems: none Results Review: All pre-operative results and documents have been reviewed as part of the pre-operative evaluation. [facility] Past Medical History Medical History Aortic atherosclerosis CT scan 11/2019 Asthma Benign hypertension with CKD (chronic kidney disease) stage III Bilateral carotid artery stenosis 06/2018 CAD (coronary artery disease) CT scan 09/2019 COVID High cholesterol Hypertension Insomnia Major depressive disorder, recurrent, mild Mild persistent asthma Osteopenia Peripheral neuropathy Pure hypercholesterolemia, unspecified Stage 3a chronic kidney disease (CKD) Urge incontinence of urine Wears glasses Surgical History Surgical History History of foot surgery 2008, hammertoes History of hysterectomy History of repair of rectocele History of repair of rotator cuff 2016, right Family History Family History Unknown Cancer Heart disease Daughter Breast cancer Father Hypercholesteremia Mother Hypercholesteremia Other Asthma Diabetes mellitus Hypertension Social History Social History Smoking status: Never smoker Second hand tobacco smoke exposure: No Alcohol intake: current Alcohol use details: socially Substance use: never Substance use type: does not use and tranquilizers Do You Feel Safe in your Home?: Yes Lack of Transportation: No Lack of Food: Never True Current Housing: I Have Housing Concerned About Future Housing: No Difficulty Paying Gas/Electric Bills: No Difficulty Paying for Meds: No Currently Unemployed: No Education: [employer]
--- NOTE | 2023-05-25 09:27 | WPDHPUPDATE1 ---
History and Physical Update Update Date/Time: 05/25/23 09:27 History and Physical has been reviewed, including an updated exam of the patient. There are NO changes in the patient's condition. Risks, benefits, and alternatives have been discussed and questions answered. Patient agrees to proceed with procedure.
[2023-05-25] MEDS: TRANEXAMIC ACID 1,000MG/ISO100 1,000 MG/100 ML BAG 200 MG IVPB (09:50)
[2023-05-25] MEDS: ceFAZolin 2 GM/D5W 50 ML 2 GM/50 ML BAG IVPB ×2 (10:05→17:24)
[2023-05-25] MEDS: SODIUM CHLORIDE 0.9% IV 37.7 ML, MORPHINE SULFATE INJ (*CRX) 2 MG, ROPivacaine HCL 1% 2... INFILTRATE (10:37)
--- NOTE | 2023-05-25 11:40 | W.PM.PROC2 ---
Procedure Note - Detailed Date of Procedure 05/25/23 Pre-op Diagnosis Primary oa right knee Post-op Diagnosis Same Procedure Performed Partial knee arthroplasty, right knee, medial compartment. Surgeon Denis Kelly MD Dining Room Host/Hostess Dania Trujillo PA-C Anesthesia General Description of Procedure The patient was given a general anesthetic. Preoperative antibiotics were given. The knee was prepped and draped in the usual sterile fashion. A longitudinal incision was created along the medial aspect of the patellar tendon. A minimally invasive optimized mid vastus approach was completed. No medial release was taken. The external alignment guide was used to cut the tibia with anatomic posterior slope. A 4 millimeter resection was taken. The spacer block technique was utilized to measure flexion and extension gaps after the osteophytes were removed. The difference was used to calculate the distal resection. The distal cutting block was utilized to cut the distal femur. The AP and chamfer block was utilized for this last cuts. The femur and tibia were sized. Range of motion and gap balancing was assessed. This was tested with the 1.5 millimeter spacer. The bony surfaces were cleaned with lavaged. Lug holes were drilled. The real components were cemented into position. Excess cement was carefully removed. The tourniquet was released. Meticulous hemostasis was maintained. The wound was closed with interrupted 1 Vicryl suture followed by a running 0 Quill suture and 2-0 Quill suture. Steri-Strips are placed in the skin the patient was extubated and brought to recovery room in stable condition. There were no complications. Physician operations manager assistant, Dania Trujillo PA-C, required for surgery; including patient positioning, draping, tissue retraction, maintaining instrument position, cement removal, wound closure, and dressing placement. Implants [employer] system femur size 1, tibia size 1, 8 mm polyethylene insert . One batch Simplex antibiotic cement. Estimated Blood Loss 10 Tourniquet Time Total Tourniquet Time: 51 Drains No Pathology None sent Complications No immediate complications Condition Stable Disposition PACU [facility] Billing Surgery - Charge Forward: Surgery Billing
--- NOTE | 2023-05-25 13:43 | SUR.PHASEI ---
Patient meets PACU discharge criteria, unit bed unavailable at this time. Patient placed in extended recovery status.
[2023-05-25] MEDS: fentaNYL CITRATE INJ (*CRX) 100 MCG/2 ML VIAL 25 MCG IV PUSH ×2 (13:48→15:37)
--- NOTE | 2023-05-25 16:04 | ADMGEN ---
This patient, Tuyet Iverson, was admitted to 2 Medical Room 255-. Patient/family oriented to hospital policies and general routines including ID bracelet, bed and alarms, visiting hours, pain management, procedures, bathroom and other care routines, personal items, smoking policy, room service/diet, and visiting hours. Information on how to activate the Rapid Response Team has been discussed. Patient/Family are encouraged to report perceived risks to care and to ask questions if they do not understand what they are told or what they should do.
[2023-05-25] MEDS: SENNA/DOCUSATE SODIUM TABLET 2 TAB PO (17:23)
[2023-05-25] MEDS: oxyCODONE HCL (*CRX) 5 MG TAB IR PO ×2 (17:23→22:33)
[2023-05-25] MEDS: ASPIRIN 81 MG ENTERIC TABLET PO (17:24)
[2023-05-25] MEDS: MELOXICAM 7.5 MG TABLET PO (17:24)
[2023-05-25] MEDS: FLUTICASONE/SALMETEROL 230-21 MCG INHALER 1 PUFF 2 PUFF INHALATION (19:21)
[2023-05-25] MEDS: traMADol HCL (*CRX) 50 MG TABLET PO (20:57)
[2023-05-25] MEDS: amLODIPine BESYLATE 5 MG TABLET PO (22:32)
[2023-05-25] MEDS: FAMOTIDINE 20 MG TABLET PO (22:32)
[2023-05-25] MEDS: PROPRANOLOL HCL 40 MG TABLET 80 MG PO (22:55)
[2023-05-26 00:43] VITALS: BP 114/50; PULSE 50; RESP 18; TEMP 36.6; O2SAT 100
[2023-05-26] MEDS: ceFAZolin 2 GM/D5W 50 ML 2 GM/50 ML BAG IVPB ×2 (02:06→10:15)
[2023-05-26] MEDS: ACETAMINOPHEN 500 MG TABLET 1000 MG PO ×2 (04:54→10:15)
[2023-05-26 05:21] LABS: Basophils Absolute Auto 0.1 K/mm3 (0.0-0.1); Basophils Percent Auto 0.6 % (0.2-1.2); Eosinophils Absolute Auto 0.1 K/mm3 (0-0.3); Eosinophils Percent Auto 1.5 % (0-4.4); Hematocrit 33.9 % (37.0-47.0); Hemoglobin 10.9 g/dL (12.0-15.0); Immature Granulocyte Absolute 0.04 K/mm3 (0.00-0.031); Immature Granulocyte Percent A 0.4 % (0-0.5); Lymphocytes Absolute Auto 1.33 K/mm3 (0.9-3.2); Lymphocytes Percent Auto 14.2 % (18.3-44.2); Mean Corpuscular HGB Conc 32.2 g/dl (32-36); Mean Corpuscular Hemoglobin 32.2 pg (26-34); Mean Platelet Volume 9.5 fl (7.4-10.4); Monocytes Percent Auto 10.5 % (2.6-8.5); Neutrophils Absolute Auto 6.8 K/mm3 (1.3-6.7); Neutrophils Percent Auto 72.8 % (45.5-73.1); Platelet Count Result 244 k/mm3 (150-375); Red Blood Count 3.39 M/mm3 (4.2-5.4); Red Cell Distribution Width 13.9 % (11.5-14.5); White Blood Count 9.4 K/mm3 (4.5-10.0)
[2023-05-26 05:33] LABS: Anion Gap 3 mmol/L (4-12); Blood Urea Nitrogen 13 mg/dL (7-17); Calcium 8.9 mg/dL (8.4-10.2); Carbon Dioxide 27 mmol/L (22-30); Chloride 104 mmol/L (98-107); Estimated CRCL calculation 31 ml/min; Estimated Glomerular Filt Rate 54; Glucose 104 mg/dL (65-110); Sodium 134 mmol/L (137-145)
[2023-05-26 05:49] VITALS: BP 128/57; PULSE 61; RESP 18; TEMP 36.2; O2SAT 96
[2023-05-26] MEDS: FLUTICASONE/SALMETEROL 230-21 MCG INHALER 1 PUFF 2 PUFF INHALATION (07:29)
[2023-05-26] MEDS: UMECLIDINIUM BROMIDE 62.5 MCG ELLIPTA 1 PUFF INHALATION (07:29)
--- NOTE | 2023-05-26 08:14 | PM.DS ---
DS: Admitting Diagnosis Discharge Date 05/26/23 Admitting Diagnosis Knee arthritis. DS: Discharge Diagnosis Discharge Diagnosis (1) Status post right partial knee replacement: Code(s): Z96.651 - Presence of right artificial knee joint Status: Acute Plan Postop day 1: Right partial knee arthroplasty. Patient tolerated procedure well. No complications. Pain manageable with pain medication. No numbness or tingling. We had a lengthy discussion regarding postoperative wound care, limitations, expectations, and exercises. Patient shows good understanding. She has had initial physical therapy and is tolerating it well. DVT prophylaxis: 81 mg baby aspirin b.i.d. for 14 days. Pain medication: Percocet. Prednisone. Meloxicam. Patient has followup appointment with Dr. Kelly in 3 weeks. DS: Summary Hospital Course Reason for hospitalization: Right Partial knee arthroplasty Hospital Course: Patient tolerated procedure well. Has had initial PT/OT. No complications. Pain well managed. Status at Discharge Functional status at discharge: uses cane/walker Overall status at discharge: patient is progressing back to baseline Time Spent with Patient Time attestation: Total time spent providing and/or coordinating discharge services: Exam Narrative: Thin 77 y/o female. Resting comfortably in chair. No acute distress. A&O x3. Wearing compression socks bilaterally. Dressing intact with no drainage. Mild swelling. Mild ecchymosis. No erythema. No hematoma. Good early range of motion 0-95 degrees. Calf nontender. Neurologic status intact. No varicosities. Distal pulses palpable. DS: Data Data Completed and Pending Labs on day of discharge: Labs from last 24 hours 05/26/23 04:58 WBC 9.4 RBC 3.39 L Hgb 10.9 L Hct 33.9 L MCV 100.0 MCH 32.2 MCHC 32.2 RDW 13.9 Plt Count 244 MPV 9.5 Immature Gran % (Auto) 0.4 Neut % (Auto) 72.8 Lymph % (Auto) 14.2 L [place] % (Auto) 10.5 H Eos % (Auto) 1.5 Baso % (Auto) 0.6 Lymph # (Auto) 1.33 [place] # (Auto) 1.0 H Eos # (Auto) 0.1 Baso # (Auto) 0.1 Abs Immat Gran (auto) 0.04 H Absolute Neuts (auto) 6.8 H Absolute Nucleated RBC 0.000 Nucleated RBC % 0.0 Sodium 134 L Potassium 4.0 Chloride 104 Carbon Dioxide 27 Anion Gap 3 L BUN 13 Creatinine 1.00 Estim Creat Clear Calc 31 Estimated GFR 54 L Glucose 104 Calcium 8.9 Discharge Plan Discharge Patient Disposition: Home, Self-Care Discharge Instructions: See green instruction sheets Stand Alone Forms: General Discharge Instructions Follow-up/Referrals: Dania Trujillo PA [Physician Head Transfer Clerk] - Discharge Medications: New meloxicam 15 mg tablet 15 mg PO DAILY Qty: 30 0RF Rx Instructions: Cut in half. Take 1/2 in morning and 1/2 at night. Take with food. Stop if stomach upset. prednisone 5 mg tablet 5 mg PO DAILY 21 Days Qty: 21 0RF aspirin 81 mg tablet,delayed release (DR/EC) 81 mg PO BID 14 Days Qty: 28 0RF oxycodone-acetaminophen 5-325 mg tablet 1 - 2 tablet PO Q4-6H MDD 6 PRN (Reason: pain) Qty: 30 0RF Continued aspirin [Adult Aspirin Regimen] 81 mg tablet,delayed release (DR/EC) 81 mg PO DAILY calcium carbonate [Calcium 500] 500 mg calcium (1,250 mg) tablet,chewable 1,200 mg PO DAILY potassium citrate 99 mg capsule 99 mg PO .QD magnesium citrate 100 mg capsule 100 mg PO DAILY fluticasone propion-salmeterol [Wixela Inhub] 500-50 mcg/dose blister with device 1 inh inhalation BID Qty: 180 3RF amlodipine 5 mg tablet 5 mg PO HS propranolol 80 mg capsule,extended release 24hr 80 mg PO HS albuterol sulfate 90 mcg/actuation HFA aerosol inhaler 1 puff inhalation Q4H PRN (Reason: shortness of breath or wheezing) Qty: 8.5 3RF tiotropium bromide 1.25 mcg/actuation mist 2 puff inhalation QAM Qty: 4 3RF tramadol 50 mg tablet See Rx Instructions PO
[2023-05-26] MEDS: SENNA/DOCUSATE SODIUM TABLET 2 TAB PO (08:32)
[2023-05-26] MEDS: MELOXICAM 7.5 MG TABLET PO (08:32)
[2023-05-26] MEDS: ROSUVASTATIN 5 MG TABLET PO (08:32)
[2023-05-26] MEDS: polyethylene glycoL 3350 17 GM POWD.PACK PO (08:32)
[2023-05-26] MEDS: oxyCODONE HCL (*CRX) 5 MG TAB IR 10 MG PO (08:32)
[2023-05-26] MEDS: ASPIRIN 81 MG ENTERIC TABLET PO (08:32)
[2023-05-26] MEDS: FAMOTIDINE 20 MG TABLET PO (08:32)
[2023-05-26] MEDS: predniSONE 5 MG TABLET PO (08:32)
[2023-05-26 09:37] VITALS: BP 100/49; PULSE 57; RESP 16; TEMP 36.4; O2SAT 97
--- NOTE | 2023-05-26 09:57 | P.PNAN_ITS ---
Anes - Prog Note Post-Op Date/Time: 05/26/23 09:57 Cardiovascular status: normal Respiratory status: normal Airway patency: baseline Mental status: baseline Post-Op hydration status: normal Vital Signs: Last Vital Signs Temp 36.4 C L 05/26/23 09:37 Pulse 57 L 05/26/23 09:37 Resp 16 05/26/23 09:37 BP 100/49 L 05/26/23 09:37 Pulse Ox 97 05/26/23 09:37 O2 Del Method Room Air 05/26/23 07:37 O2 Flow Rate 6 05/25/23 12:30 Pain Score (VAS): 06/01 I/O: Intake & Output 05/25/23 05/26/23 05/26/23 23:59 07:59 15:59 Intake Total 1240 150 120 Balance 1240 150 120 Laboratory Tests 05/26/23 04:58 05/26/23 04:58 05/26/23 04:58 WBC 9.4 RBC 3.39 L Hgb 10.9 L Hct 33.9 L MCV 100.0 MCH 32.2 MCHC 32.2 RDW 13.9 Plt Count 244 MPV 9.5 Immature Gran % (Auto) 0.4 Neut % (Auto) 72.8 Lymph % (Auto) 14.2 L [place] % (Auto) 10.5 H Eos % (Auto) 1.5 Baso % (Auto) 0.6 Lymph # (Auto) 1.33 [place] # (Auto) 1.0 H Eos # (Auto) 0.1 Baso # (Auto) 0.1 Abs Immat Gran (auto) 0.04 H Absolute Neuts (auto) 6.8 H Absolute Nucleated RBC 0.000 Nucleated RBC % 0.0 Sodium 134 L Potassium 4.0 Chloride 104 Carbon Dioxide 27 Anion Gap 3 L BUN 13 Creatinine 1.00 Estim Creat Clear Calc 31 Estimated GFR 54 L Glucose 104 Calcium 8.9 Post-procedural complaints: none Patient Feedback: Patient satisfied with anesthetic care.
== END 2023-05-26 11:50 | disposition home or self-care (01) ==
LOC: ANHSURGERY 09:40 → ANH2MED 16:33
PROVIDERS: Physician Assistant Surgical; PCP Family Medicine Adolescent Medicine; Visit Provider Orthopaedic Surgery
PROC: (CPT 27446; principal; 2023-05-25 10:30)
DX: M17.11 Unilateral primary osteoarthritis, right knee (principal); I12.9 Hypertensive chronic kidney disease with stage 1 through stage 4 chronic kidney disease, or unspecified chronic kidney disease; N18.31 Chronic kidney disease, stage 3a; J45.30 Mild persistent asthma, uncomplicated; E78.00 Pure hypercholesterolemia, unspecified; F33.0 Major depressive disorder, recurrent, mild; G62.9 Polyneuropathy, unspecified; I25.10 Atherosclerotic heart disease of native coronary artery without angina pectoris; Z79.82 Long term (current) use of aspirin; Z79.51 Long term (current) use of inhaled steroids
CPT/HCPCS: 27447; 36415; 73560; 80048; 85025; 94640; 97110; 97116; 97161; 97165; 97530; 97535; A9270; C1776; J0171; J0690; J1885; J2270; J2405; J2704; J2795; J3010; J7120; J7512

== ENCOUNTER 2023-07-13 10:26 | Outpatient (CLI) | payer OTHER, SELFPAY ==
--- NOTE | ~2023-07-13 | XR_ITS ---
Right Knee Technique: AP, lateral, and sunrise views were obtained. Clinical History: Pain Findings: No fracture or dislocation is seen. Patient is status post medial compartment hemiarthropla sty. No hardware convocation evident. Soft tissues are unremarkable. No joint effusion is seen. Impression: No acute abnormality. Status post medial compartment hemiarthroplasty. Reviewed, dictated and finalized at location . Impression: No acute abnormality. Status post medial compartment hemiarthroplasty.
== END 2023-07-13 10:27 | disposition home or self-care (01) ==
PROVIDERS: PCP Family Medicine Adolescent Medicine; Visit Provider Orthopaedic Surgery
DX: M25.561 Pain in right knee (principal); Z96.651 Presence of right artificial knee joint
CPT/HCPCS: 73562

== ENCOUNTER 2023-10-06 09:21 | Outpatient (CLI) | payer OTHER, SELFPAY ==
--- NOTE | ~2023-10-06 | XR_ITS ---
XR knee RT 3V 10/06/2023 09:36 Indication: Right knee arthroplasty Procedure: 3 views right knee Comparison: Comparison to multiple prior studies sequentially, with oldest reviewed study dated 05/11. Findings: Stable alignment of medial compartment hemiarthroplasty. No underlying fracture or traumati c malalignment. No significant soft tissue abnormality. No joint effusion. Impression: 1: No acute bone or joint abnormality. No significant interval change. Reviewed, dictated and finalized at location B. Impression: 1: No acute bone or joint abnormality. No significant interval change.
== END 2023-10-06 09:22 | disposition home or self-care (01) ==
PROVIDERS: PCP Family Medicine Adolescent Medicine; Visit Provider Orthopaedic Surgery
DX: Z96.651 Presence of right artificial knee joint (principal)
CPT/HCPCS: 73562

== ENCOUNTER 2023-11-16 15:10 | Outpatient (CLI) | payer OTHER, SELFPAY ==
--- NOTE | ~2023-11-16 | XR_ITS ---
EXAMINATION: XR elbow LT 2V DATE: 11/16/2023 15:21 INDICATION: Left elbow pain post fall 4 weeks prior TECHNIQUE: Anteroposterior and lateral views of the left elbow were obtained. COMPARISON: None. FINDINGS: Subtle discernible lucency along a mildly impacted extra-articular fracture extending across the prox imal neck of the left radius. There is a tiny fracture fragments versus calcification along one side of the fracture. Alignment remains near-anatomic with minimal widening of the radiocapitellar joint s pace relative to the ulnotrochlear articulation. No elbow joint effusion. Soft tissues are unremarkab le. IMPRESSION: 1. Mildly impacted subacute appearing extra-articular fracture across the left radial neck. Reviewed, dictated and finalized at location A.
== END 2023-11-16 15:11 | disposition home or self-care (01) ==
LOC: MICIMG 15:10
PROVIDERS: PCP Family Medicine Adolescent Medicine; Visit Provider Family Medicine Adolescent Medicine
DX: M25.522 Pain in left elbow (principal)
CPT/HCPCS: 73070

== ENCOUNTER 2024-04-14 12:14 | Outpatient (CLI) | payer OTHER, SELFPAY ==
--- NOTE | ~2024-04-14 | XR_ITS ---
EXAMINATION: XR chest 2V 04/14/2024 12:27 INDICATION: Dyspnea PROCEDURE: 2 view chest COMPARISON: Comparison to multiple prior studies sequentially, with oldest reviewed study dated 04/2019. FINDINGS: The lungs are clear. The lungs are hyperinflated which is consistent with, but not diagnost ic of chronic obstructive pulmonary disease. The cardiomediastinal silhouette is within normal limits . There are no pleural effusions. There is no pneumothorax suspected. IMPRESSION: 1: NO ACUTE CARDIOPULMONARY DISEASE. Reviewed, dictated and finalized at location L. AIDE
== END 2024-04-14 12:15 | disposition home or self-care (01) ==
LOC: MICIMG 12:15
PROVIDERS: PCP Family Medicine Adolescent Medicine; Visit Provider Family Medicine Adolescent Medicine
DX: R06.09 Other forms of dyspnea (principal)
CPT/HCPCS: 71046

== ENCOUNTER 2024-05-28 08:28 | Outpatient (CLI) | payer OTHER, SELFPAY ==
--- NOTE | ~2024-05-28 | MR_ITS ---
MRI of the brain Clinical History: Dizziness and giddiness Technique: Axial and sagittal T1-weighted images were acquired. These were followed by axial T2-weigh deb, diffusion weighted, gradient, and FLAIR images. Following intravenous administration of 10 cc Pr oHance gadolinium, T1-weighted fat-sat imaging was performed in the axial and coronal planes. Findings: There is no acute infarct, intracranial hemorrhage or mass lesion. There are moderate chron ic microvascular ischemic changes in the periventricular white matter bilaterally. Ventricles and subarachnoid spaces are unremarkable. Orbits are unremarkable. Paranasal sinuses and m astoid air cells are clear. Major intracranial flow voids are intact. Sagittal midline structures are intact. No abnormal postcontrast enhancement identified. IMPRESSION: No acute infarct, intracranial hemorrhage, or mass lesion. Moderate chronic microvascular ischemic changes. Reviewed, dictated and finalized at location .
--- OUTSIDE RECORDS SUMMARY | 2024-05-28 08:35 | XMS_ITS | Clinical Summary ---
Author Organization [facility] Address [address] [place] [address] Care Team Providers Care Retort Kiln Burner Name Role Phone Fernando Patino MD Primary Care Prov ider Allergies Active Allergy Reactions Criticality Noted Date Comments Lisinopril Cough Low 04/09/2020 Medications valsartan (DIOVAN) 320 mg tablet Take 320 mg by mouth daily 03/18/2020 Active ezetimibe (ZETIA) 10 mg tablet Take 10 mg by mouth daily 03/13/2020 Active traZODone (DESYREL) 150 mg tablet Take 150 mg by mouth nightly 02/12/2020 Active LORazepam (ATIVAN) 1 mg tablet Take 1 mg by mouth nightly at bedtime. 03/23/2020 Active albuterol HFA (PROVENTIL HFA,VENTOLIN HFA,PROAIR HFA) 90 mcg/actuation inhaler 02/19/2020 Active rosuvastatin (CRESTOR) 5 mg tablet Take 1 tablet (5 mg total) by mouth nightly 90 tablet 3 04/09/2020 Active amLODIPine (NORVASC) 5 mg tablet TAKE 1 TABLET BY MOUTH EVERY DAY AT NIGHT 30 tablet 04/18/2021 Active Active Problems Problem Noted Date Diagnosed Date Hypertension, essential 04/09/2020 Assessment & Plan (05/14/2020 6:51 PM CDT): Home blood pressures are somewhat variable, but on average her blood pressure is reasonably controlled. Will continue current medications at this time and obtain a stress echo with echo Doppler to evaluate her exertional dyspnea and coronary calcification. Assessment & Plan (04/10/2020 6:22 PM NUTRITIONAL CHEMIST): Hypertension has apparently required treatment only for the last few months, and her home blood pressure readings are variable but in general significantly higher than her office blood pressure readings. Her Omron cuff should be reliable. I am not enthusiastic about the occasional use of clonidine given the possibility of rebound hypertension, and have advised her not to use that. Will add amlodipine 5 mg at bedtime. I advised her to check her blood pressure just a couple of times a week rather than twice a day because I think stress about her blood pressure may be aggravating it. Once her blood pressure is controlled will plan to get an echo Doppler with stress echo looking for any evidence of left ventricular hypertrophy or diastolic dysfunction on the resting echo. Pure hypercholesterolemia 04/09/2020 Assessment & Plan (05/14/2020 6:52 PM CDT): Tolerating low intensity statin therapy at this time. Assessment & Plan (04/10/2020 6:23 PM NUTRITIONAL CHEMIST): Will begin rosuvastatin 5 mg q.h.s.. Suggested that she take Co Q10 with that. Coronary artery calcification seen on CT scan Assessment & Plan (05/14/2020 6:51 PM CDT): Stress echo to rule out myocardial ischemia. Risk factor modification. Assessment & Plan (04/10/2020 6:23 PM NUTRITIONAL CHEMIST): She has no symptoms suggesting myocardial ischemia but exertional dyspnea could be an angina equivalent. Stress echo when blood pressure controlled. Resting EKG is normal which is reassuring. Emphasized that the presence of coronary calcifications makes treatment of her lipids very important. She is willing to try low-dose statin therapy. Dyspnea on exertion 04/09/2020 Assessment & Plan (05/14/2020 6:51 PM CDT): Blood pressure is well enough controlled to proceed with planned evaluation of stress echo with echo Doppler. Assessment & Plan (04/10/2020 6:22 PM NUTRITIONAL CHEMIST): Lungs sound clear. This may be hypertension related. It may also be deconditioning as she has been less active recently. Echo Doppler and stress echo once blood pressure is controlled. Medical History Medical History Date Comments Hypertension Asthma Family History Medical History Relation Name Comments Heart attack Father Relation Name Status Comments Father (Age 64) Social History Tobacco Use Types Packs/Day Years Used Date Smoking Tobacco: Never Smokeless Tobacco: Never Alcohol Use Standard Drinks/Week Comments Not Currently 0 (1 standard drink = 0.6 oz pur e alcohol) Personal Safety Answer Date Recorded Getting School Help Needed Not on file 04/17 Comments Unknown Sex and Gender Information Value Date Recorded Sex Assigned at Not on file Legal Sex Female 10:11 AM NUTRITIONAL CHEMIST Gender Identity Not on file Sexual Orientation Zheng 04/03/2020 9: 57 AM NUTRITIONAL CHEMIST Obstetrics History Last Filed Vital Signs Vital Sign Reading Time Taken Comments Blood Pressure 156/80 09/22/2023 2:49 PM CDT Pulse 78 05/14/2020 11:33 AM CDT Temperature - - Respiratory Rate - - Oxygen Saturation 98% 05/14/2020 11:33 AM CDT Inhaled Oxygen Concentration - - Weight 55.8 kg (123 lb) 05/14/2020 11:33 AM CDT Height 154.9 cm (5' 1 ) 05/14/2020 11:33 AM CDT Body Mass Index 23.24 05/14/2020 11:33 AM CDT Plan of Treatment Not on file Insurance [facility] Care Teams Retort Kiln Burner Relationship Specialty Start Date End Date Fernando Patino MD [address] [place] [address] PCP - General Family Medicine 03/19/20
--- OUTSIDE RECORDS SUMMARY | 2024-05-28 08:35 | XMS_ITS | Clinical Summary ---
Author Organization [facility] Address [address] [place] [address] Care Team Providers Care Hot Car Operator Name Role Phone Unavailable Primary Care Provider Unavailabl e Social History Tobacco Use Types Packs/Day Years Used Date Smoking Tobacco: Never Assessed Comments Unknown Sex and Gender Information Value Date Recorded Sex Assigned at Not on file Legal Sex Female 4:50 PM CDT Gender Identity Not on file Sexual Orientation Not on file Plan of Treatment Health Maintenance Due Date Last Done Comments Hepatitis C 1962 DTaP, Tdap and Td Vaccines ( 1 - Tdap) 06/06/1963 Zoster Vaccines (1 of 2) 1994 Dexa Scan (General) 2009 Pneumococcal Vaccine: 65+ Ye ars (1 of 1 - PCV) 2009 RSV Immunization or 60+ Years (1 - 1-dose 75+ series) 06/06/2019 COVID-19 Vaccine ( - 2023-2 5 season) 2023 Meningococcal B Vaccine Aged Out No l onger eligible based on patient's age to complete this topic Meningococcal Vaccine Aged Out No nirav satish eligible based on patient's age to complete this topic RSV Immunizations Under 20 Months Aged Out No longer eligible based on patient's age to complete this topic
--- OUTSIDE RECORDS SUMMARY | 2024-05-28 08:35 | XMS_ITS | Data Portability ---
Author Organization [facility] [place] Address [address] [place] [address] [place] [address] Care Team Providers Care Residential Youth Counselor Name Role Phone NAIF CHAPMAN Primary Care Provider Assessment Encounter Date Assessment Date Assessment LastModified by Organization Details LastModified Time 05/29/2021 05/29/2021 Annual gynecological exam performed. Patient will come back in a year unless there are new symptoms. Not available 05/29/2021 10:27:46 06/03/2022 06/03/2022 Annual gynecological exam performed. Patient will come back in a year unless there are new symptoms. [email or web address] Not available 06/21/2022 19:30:58 Plan of Treatment Reminders Order Date Submit Date Provider Last Modified By Organization Details Last Modified Time Details Appointments None recorded. Lab None recorded. Referral None recorded. Procedures None recorded. Surgeries None recorded. Imaging MAMMO, screening, bilateral 2021 022 [facility], [address], [place], [address], 17:04:47 Medication Orders None recorded. Patient TargetsNo targets recorded. Patient InstructionsNo instructions recorded. Reason for Referral None Reported. Problems Name Problem SNOMED Code Status Onset Date Resolution Date Notes Provider Name and Address Organization Details Recorded Time Screenin g for malignan t neoplasm of cervix Completed 201305/28/2021 Screening for malignant neoplasms of the cervix;Re corded Elsewhere : No Locati on: [facility] So urce: EHR Chron ic: N Practic e ID: 0001 Bill able Time: 10:00:00 AM Germaine Lim [facility] 2 18:13:22 Radiolog ic finding [id number] Completed 201505/28/2021 Oth abn and inconclus brendon findings on dx imaging of breast;Re corded Elsewhere : No Locati on: [facility] So urce: EHR Chron ic: N Practic e ID: 0001 Bill able Time: 11:59:26 AM Germaine Lim [facility] 2 18:13:22 Adult health examinat ion Completed 201405/28/2021 ROUTINE MEDICAL EXAM;Arcadio rded Elsewhere : No Locati on: [facility] So urce: EHR Chron ic: N Practic e ID: 0001 Bill able Time: 01:30:00 PM Germaine [facility] 2 18:13:22 Microsco pic hematuri a [id number] Completed 201405/28/2021 MICROSCOP IC HEMATURIA ;Recorded Elsewhere : No Locati on: [facility] So urce: EHR Chron ic: N Practic e ID: 0001 Bill able Time: 01:30:00 PM Germaine Lim [facility] 2 18:13:22 Mammogra phy abnormal [id number] Completed 201405/28/2021 Unspecifi ed abnormal mammogram ;Recorded Elsewhere : No Locati on: [facility] So urce: EHR Chron ic: N Practic e ID: 0001 Bill able Time: 01:59:14 PM Germaine [facility] 2 18:13:22 Screenin g for malignan t neoplasm of rectum Completed 201505/28/2021 Encounter for screening for malignant neoplasm of rectum;Re corded Elsewhere : No Locati on: [facility] So urce: EHR Chron ic: N Practic e ID: 0001 Bill able Time: 01:30:00 PM Germaine Lim null, [facility] 2 18:13:22 Insomnia [id number] Completed 201405/28/2021 Insomnia; Recorded Elsewhere : No Locati on: [facility] So urce: EHR Chron ic: N Practic e ID: 0001 Bill able Time: 01:30:00 PM Germaine boston [facility] [address] 18:13:[address] Concept Completed 201505/28/2021 Encntr for general adult medical exam w/o abnormal findings; Recorded Elsewhere : No Locati on: [facility] So urce: EHR Chron ic: N Practic e ID: 0001 Bill able Time: 01:30:00 PM Germaine Lim [facility] 2 18:13:22 Speciali zed medical examinat ion Completed 201405/28/2021 Gynecolog ical Examinati on;Record ed Elsewhere : No Locati on: [facility] So urce: EHR Chron ic: N Practic e ID: 0001 Bill able Time: 01:30:00 PM Germaine Lim [facility] [address] 18:13:[address] Concept Completed 201505/28/2021 Encntr for outbound sales executive exam (general) (routine) w/o abn findings; Recorded Elsewhere : No Locati on: [facility] So urce: EHR Chron ic: N Practic e ID: 0001 Bill able Time: 01:30:00 PM Germaine Lim [facility] 2 18:13:22 Proteinu izabela [id number] Completed 201305/28/2021 Proteinur ia;Record ed Elsewhere : No Locati on: [facility] So urce: EHR Chron ic: N Practic e ID: 0001 Bill able Time: 10:00:00 AM Germaine boston [facility] 2 18:13:22 Osteopor osis [id number] Completed 201305/28/2021 Osteoporo sis;Recor ded Elsewhere : No Locati on: [facility] So urce: EHR Chron ic: N Practic e ID: 0001 Chris able Time: 12:00:00 PM Germaine [facility], [facility] 18:13:22 Problem Notes None recorded. Procedures Surgical History Date Name Laterality Status Provider Name and Address Organization Details Recorded Time 6 Date of Last Mammogram completed [facility] 05/29/2021 10:14:20 hammer toe operation completed [facility] 05/28/2021 21:20:01 Imaging Results None recorded. Procedure Notes None recorded. Medical Equipment None Reported. Allergies No known drug allergies Medications Name Sig Start Date Stop Date Status Note LastModified by Organization Details LastModified Time prednison e 10 mg tablet PLEASE SEE ATTACHED FOR DETAILED DIRECTIO NS active Not Available Not Available No t Available hydrocodo ne 5 mg-acetam inophen 325 mg tablet TAKE 1 TABLET BY MOUTH THREE TIMES A DAY NEEDED 05/29 completed Not Available Not Available Not Available meloxicam 15 mg tablet TAKE 1/2 IN MORNING AND 1/2 AT NIGHT. TAKE WITH FOOD. STOP IF STOMACH UPSET OCCURS 05/29 completed Not Available Not Available Not Available amlodipin e 5 mg tablet TAKE 1 TABLET BY MOUTH DAILY active Not Available Not Available No t Available simvastat in 80 mg tablet 10/08 completed Prescrib ed Elsewher e: Yes [facility] By: deborah muñoz DateTime : 06/02/19 14 10:00:00 AM Not Available Not Available Not Available amoxicill in 875 mg tablet TAKE 1 TABLET BY MOUTH IMMEDIAE LY, THEN 1 TAB TWICE DAILY UNTIL GONE 05/29 completed Not Available Not Available Not Available amitripty line 10 mg tablet take 1 tablet by oral route every day 10/08 completed Prescrib ed Elsewher e: No Locat ion: [facility] odify By: deborah bourgeoisunter DateTime : 07/27/19 15 01:30:00 PM Not Available Not Available Not Available lorazepam 2 mg tablet take 1 tablet (2MG) by oral route 3 times every day as needed 10/08 completed Prescrib ed Elsewher e: Yes [facility] By: deborah Thorpe ncounter DateTime : 06/02/19 14 10:00:00 AM Not Available Not Available Not Available meclizine 25 mg tablet TAKE 1 TABLET BY MOUTH THREE TIMES A DAY active Not Available Not Available No t Available trazodone 150 mg tablet TAKE 1 TABLET BY MOUTH EVERY DAY AT BEDTIME NEEDED FOR SLEEP active Not Available Not Available No t Available buspirone 10 mg tablet TAKE 1 TABLET BY MOUTH TWICE A DAY 05/29 completed Not Available Not Available Not Available propranol ol ER 80 mg capsule,2 4 hr,extend ed release TAKE 1 CAPSULE BY MOUTH DAILY active Not Available Not Available No t Available valsartan 320 mg tablet TAKE 1 TABLET BY MOUTH EVERY DAY 05/29 completed Not Available Not Available Not Available mupirocin 2 % topical ointment APPLY TOPICALL Y TWICE A DAY active Not Available Not Available No t Available lorazepam 1 mg tablet TAKE 1 TABLET BY MOUTH EVERY DAY AT BEDTIME NEEDED FOR SLEEP active Not Available Not Available No t Available albuterol sulfate HFA 90 mcg/actua tion aerosol inhaler INHALE 1 PUFF EVERY 4 HOURS NEEDED FOR SHORTNES S OF BREATH OR WHEEZING active Not Available Not Available No t Available Vitamin D2 1,250 mcg (50,000 unit) capsule take 1 capsule by oral route every week 10/08 completed Prescrib ed Elsewher e: No [facility] By: deborah Thorpe ncounter DateTime : 08/04/19 15 02:15:11 PM Not Available Not Available Not Available ipratropi um bromide 42 mcg (0.06 %) nasal spray ADMINIST ER 2 SPRAYS INTO EACH NOSTRIL TWICE DAILY active Not Available Not Available No t Available amoxicill in 875 mg-potass ium clavulana te 125 mg tablet TAKE 1 TABLET BY MOUTH TWICE A DAY 05/29 completed Not Available Not Available Not Available ezetimibe 10 mg tablet TAKE 1 TABLET BY MOUTH EVERY DAY 05/29 completed Not Available Not Available Not Available rosuvasta tin 5 mg tablet TAKE 1 TABLET BY MOUTH DAILY active Not Available Not Available No t Available Actonel 150 mg tablet take 1 tablet by oral route every month 07/26 completed Prescrib jose Martinez e: No [facility] By: andrea langford DateTime : 10/11/19 14 12:00:00 PM Not Available Not Available Not Available Wixela Inhub 500 mcg-50 mcg/dose powder for inhalatio n INHALE 1 PUFF EVERY DAY AT BEDTIME active Not Available Not Available No t Available Lagevrio 200 mg capsule (EUA) TAKE 4 CAPSULES BY MOUTH EVERY 12 HOURS FOR 5 DAYS active Not Available Not Available No t Available Vitals Date Recorded Body height Body mass index (BMI) Body weight Systolic blood pressure Diastolic blood pressure Provider Name and Address Organization Details Last Updated DateTime 05/29/2021 152.4 cm 23 kg/m2 30904.9 g 130 mm[Hg] 78 mm[Hg] Germaine [facility] 10:28:36 Social History Question Answer Notes LastModified by Organizat ion Details LastModified Time Tobacco Smoking Status Never Smoker Germaine [facility] 05/28/2021 20:48:04 What Is Your Level Of Alcohol Consumption? Occasional Information not available 05/28/2021 Are You Blind Or Do You Have Difficulty Seeing? No Information not available 05/28/2021 What Is Your Level Of Caffeine Consumption? Occasional Information not available 05/28/2021 Are You Currently Employed? No Information not available 05/28/2021 Are You Deaf Or Do You Have Serious Difficulty Hearing? No Information not available 05/28/2021 What Type Of Diet Are You Following? REGULAR Information not available 05/28/2021 What Is The Highest Grade Or Level Of School You Have Completed Or The Highest Degree You Have Received? [id number] Information not available 05/28/2021 Do You Use Your Seat Belt Or Car Seat Routinely? Yes Information not available 05/28/2021 Do You Have Smoke And Carbon Monoxide Detectors In Your Home? Yes Information not available 05/28/2021 Do You Feel Stressed (tense, Restless, Nervous, Or Anxious, Or Unable To Sleep At Night)? [id number] Information not available 05/28/2021 Do You Use Any Illicit Or Recreational Drugs? No Information not available 05/28/2021 Do You Use Sunscreen Routinely? Yes Information not available 05/28/2021 Sex: Unknown Functional Status Question Answer Note LastModified by Organizat ion Details LastModified Time Do you have difficulty walking or climbing stairs? No Information not available 05/28/2021 Are you able to walk? YESWOREST Information not available 05/28/2021 Are you able to care for yourself? Yes Information not available 05/28/2021 Do you have difficulty dressing or bathing? No Information not available 05/28/2021 What is your exercise level? Occasional Information not available 05/28/2021 Mental Status None recorded. Family History Relationship Description Onset Age of this Age Resolved Age Notes LastModified by Organization Details LastModified Time Father Hyperlipidem ia Not available 2021 21:22:51 Father Myocardial infarction Not available 05/28 21:23:03 Father Hypertensive disorder Not available 2021 21:23:47 Mother Hypertensive disorder Not available 2021 21:23:47 Daughter Malignant tumor of breast Not available 2021 10:30:41 Medical History Condition Response Anxiety Disorder Y Other Y Asthma Y High Cholesterol Y Gynecological History Statement/Question Response Abnormal Pap Y Date of Last Mammogram 08/28/2015 Sexually Active? N STIs/STDs N Date of DEXA bone scan 08/09/2013 Age of first menstrual cycle 12 Date of Last Pap Smear Sexual Problems? N Current Control Method Hysterectom y Obstetrics History GPAL:G 2 P 0 0 0 2 Type Value Living 2 Total 2 Past Encounters Encounter ID Performer Location Encounter Start Date Encounter Closed Date Diagnosis/Indication Diagnosis SNOMED-CT Code Diagnosis ICD10 Code Diagnosis Note [id number] PAIGE Cordon [place] [address] [address] 05/29/2021 09:30:52 05/29/2021 10:46:54 Gynecologic examination 90950100 Z01.419 Take Calcium with Vitamin D 12-1500mg daily. Do monthly self breast exams. It is advised to get annual flu shot in the fall and she could obtain at [facility]. If you haven't received the Tdap vaccine in the last 10 years you should obtain one as well. Have mammogram yearly, bone density every 2-3 years and colonoscop y every 5-10 years depending on findings and history. Engage in daily exercise of low impact aerobic exercise 45-60 minutes 4-5 times weekly. Avoid tobacco and illicit drugs as well as using moderation with alcohol intake less than 1-2 8 oz beverages daily. This lifestyle behavior pattern will lead to less health conditions and longer life span. If BMI greater than 25 weight watchers or dietary consult advised. Questions have been answered. Patient appears to understand instructio ns, but if you have any further questions call or respond to this email Pap/hpv d/c after age 65yo with appropriat e hx per asccp unless otherwise indicated (Hysterect isabella for non-cancer indication s).STD Screen declinedGe netic Screen discussedC olon Screen UTD PCPDexa Screen UTD PCP (reports they did it in the last 1-2yrs)Rou shelli Labs UTD PCPMammo orderedGYN WWE visit q2yrs or prn.PCP can manage the routine screenings . Screening mammography 24 737472 Z12.31 [id number] Camille Butts , [facility] [address] [address] 06/03/2022 15:02:57 06/21/2022 19:33:04 Gynecologic examination 88892275 Z01.419 Take Calcium with Vitamin D 12-1500mg daily. Do monthly self breast exams. It is advised to get annual flu shot in the fall and she could obtain at [facility] or [facility] clinic. If you haven't received the Tdap vaccine in the last 10 years you should obtain one as well. Have mammogram yearly, bone density every 2-3 years and colonoscop y every 5-10 years depending on findings and history. Engage in daily exercise of low impact aerobic exercise 45-60 minutes 4-5 times weekly. Avoid tobacco and illicit drugs as well as using moderation with alcohol intake less than 1-2 8 oz beverages daily. This lifestyle behavior pattern will lead to less health conditions and longer life span. If BMI greater than 25 weight watchers or dietary consult advised. Questions have been answered. Patient appears to understand instructio ns, but if you have any further questions call or respond to this email Pap/hpv d/c after age 65yo with appropriat e hx per asccp unless otherwise indicated (Hysterect isabella for non-cancer indication s).STD Screen declinedGe netic Screen discussedC olon Screen UTD PCPDexa Screen UTD PCP (reports they did it in the last 1-2yrs)Rou shelli Labs UTD PCPMammo orderedGYN WWE visit q2yrs or prn.PCP can manage the routine screenings . Health Concerns Section Related Observation LastModified by Organization Detai ls LastModified Time None Recorded Concern Status LastModified by Organization Details LastModified Time None Recorded Advance Directives Directive None Recorded Payers Encounter Date Sequence Insurance Name Policy Number Policy Christopher Covered Member ID Christopher Member ID Guarantor Name 05/29/2021 1 [id number] [facility] (MEDICARE REPLACEMENT HMO) [id number] Tuyet Iverson [id number] Tuyet Iverson 06/03/2022 1 [id number] [facility] (MEDICARE REPLACEMENT HMO) [id number] Tuyet Iverson [id number] Tuyet Iverson Notes Date Note Type Note Provider Name and Address Organization Details Recorded Time 05/29/2021 text/html Annual Branch Account Manager Post-MenopausalRe ported bypatient.[place] omari Symptoms:no menopausal symptoms; normal vaginal lubrication Vaginal Bleeding:history of menopause having occurred; no history of post menopausal bleeding Urinary Symptoms:no hematuria; no incontinence; no nocturia; no urinary frequency Vulva:no genital lesion; no vulvar atrophy Vagina:normal vaginal discharge; no vaginal atrophy Breast:no breast lump; no nipple discharge; no breast pain Sexual Complaints:no sexual complaints Psychological Symptoms:no depression; no anxiety Preventive Measures:encourag e regular mammograms starting age 40; encourage self breast examination; encourage regular exercise; encourage no tobacco use; needs to schedule mammogram; history of recent colonoscopy; needs to schedule bone density (PCP manages.) Camille Butts [facility] [address], [place], [address], [facility] 05/29/2021 10:45:54 06/03/2022 text/html Annual Branch Account Manager Post-MenopausalRe ported bypatient.Menopau omari Symptoms:no menopausal symptoms; normal vaginal lubrication Vaginal Bleeding:history of menopause having occurred; no history of post menopausal bleeding Urinary Symptoms:no hematuria; no incontinence; no nocturia; no urinary frequency Vulva:no genital lesion; no vulvar atrophy Vagina:normal vaginal discharge; no vaginal atrophy Breast:no breast lump; no nipple discharge; no breast pain Sexual Complaints:no sexual complaints Psychological Symptoms:no depression; no anxiety Preventive Measures:encourag e regular mammograms starting age 40; encourage self breast examination; encourage regular exercise; encourage no tobacco use; mammogram performed within the past year; history of recent colonoscopy Camille Butts [facility] [address], [place], [address], [facility] 06/21/2022 19:33:01 OBGyn Episode Ob Episode Information Episode Created Date Number of Fetuses Patient Bloodtype Patient rh Status Prepregnancy Weight lbs Domestic Partner Domestic Partner Phone Father Name Adult Care Manager Status 05/30/19 22 1 CLOSED Fetus Data First Name Last Name Admitted to NICU Weight (g) Sex Living Outcome Pediatric Complications Fetus ID Race Codes Race Delivery Type F [id number] Vaginal Delivery Alexey Calculation Initial Alexey Date Initial Exam Date Initial Exam Provider Initial Ultrasound Date Last Menstrual Period Date Ultra Sound Weeks Gestation 0 Eighteen To Twenty Week Alexey Update Ultra Sound Date Fundal Height At Umbil Quickening Date Ultra Sound Latest Weeks Gestation Final Alexey Confirmed By Final Alexey Confirmed Date Final Alexey Date Ultra Sound Latest Days Gestation 0 0 Menstrual History Last Menstrual Date Menses Monthly On Bcp Conception Prior Menses Frequency Hcg Plus Date Menarche Onset Age Delivery Information Delivery Date Delivery Type Labor Anesthesia Weeks Gestation Incision Type Labor Labor Length Hrs Delivered By Post Complications Tubal Sterilization Discharge Date Comments 4 Discharge Information Feeding Method Contraceptive Method Maternal HG B and HCT Levels Ob Episode Information Episode Created Date Number of Fetuses Patient Bloodtype Patient rh Status Prepregnancy Weight lbs Domestic Partner Domestic Partner Phone Father Name Adult Care Manager Status 05/30/19 22 1 CLOSED Fetus Data First Name Last Name Admitted to NICU Weight (g) Sex Living Outcome Pediatric Complications Fetus ID Race Codes Race Delivery Type M [id number] Vaginal Delivery Alexey Calculation Initial Alexey Date Initial Exam Date Initial Exam Provider Initial Ultrasound Date Last Menstrual Period Date Ultra Sound Weeks Gestation 0 Eighteen To Twenty Week Alexey Update Ultra Sound Date Fundal Height At Umbil Quickening Date Ultra Sound Latest Weeks Gestation Final Alexey Confirmed By Final Alexey Confirmed Date Final Alexey Date Ultra Sound Latest Days Gestation 0 0 Menstrual History Last Menstrual Date Menses Monthly On Bcp Conception Prior Menses Frequency Hcg Plus Date Menarche Onset Age Delivery Information Delivery Date Delivery Type Labor Anesthesia Weeks Gestation Incision Type Labor Labor Length Hrs Delivered By Post Complications Tubal Sterilization Discharge Date Comments 2 Discharge Information Feeding Method Contraceptive Method Maternal HG B and HCT Levels
--- OUTSIDE RECORDS SUMMARY | 2024-05-28 08:35 | XMS_ITS | Referral Summary ---
Author Organization [facility] Address [address] [place] [address] Care Team Providers Care Technical Communicator Name Role Phone Fernando Patino MD Primary [...] calcification. Assessment & Plan (04/10/2020 6:22 PM WELDER OPERATOR): Hypertension has apparently required treatment only for [...] time. Assessment & Plan (04/10/2020 6:23 PM WELDER OPERATOR): Will begin rosuvastatin 5 mg q.h.s.. Suggested that she take Co Q10 with that. Coronary artery calcification seen on CT scan Assessment & Plan (05/14/2020 6:51 PM CDT): Stress echo to rule out myocardial ischemia. Risk factor modification. Assessment & Plan (04/10/2020 6:23 PM WELDER OPERATOR): She has no symptoms suggesting myocardial ischemia [...] Doppler. Assessment & Plan (04/10/2020 6:22 PM WELDER OPERATOR): Lungs sound clear. This may be hypertension related. It may also be deconditioning as she has been less active recently. Echo Doppler and stress echo once blood pressure is controlled. Social History Tobacco Use Types Packs/Day Years [...] on file Legal Sex Female 10:11 AM WELDER OPERATOR Gender Identity Not on file Sexual Orientation Zheng 04/03/2020 9: 57 AM WELDER OPERATOR Last Filed Vital Signs Vital Sign Reading [...] Plan of Treatment Not on file Insurance [employer] [facility] Member Subscriber Plan / Payer ( fective 2018-Present) Name:Tuyet Iverson Relation to Subscriber:Self Name:Tuyet Iverson Payer ID:[id number] (NAIC) Type:MEDICARE RISK OTHER Address: [place] [id number] Care Teams Technical Communicator Relationship Specialty Start Date End Date Fernando Patino MD [address] [place] [address] PCP - General Family Medicine 03/19/20
== END 2024-05-28 08:29 | disposition home or self-care (01) ==
PROVIDERS: PCP Family Medicine Adolescent Medicine; Visit Provider Family Medicine
DX: I67.82 Cerebral ischemia (principal)
CPT/HCPCS: 70553; A9579

== ENCOUNTER 2024-06-06 11:39 | Outpatient (CLI) | payer OTHER, SELFPAY ==
--- NOTE | ~2024-06-06 | MM_ITS ---
EXAMINATION: MM screening [facility] BI w ena HISTORY: Screening TECHNIQUE: Craniocaudal and mediolateral oblique 3-D tomosynthesis images were obtained and synthetic 2-D images were generated. CAD analysis was submitted and interpreted. COMPARISON: Comparison to multiple prior studies sequentially, with oldest reviewed study dated 07/2017. BREAST PARENCHYMAL COMPOSITION: Dense: The breasts are heterogeneously dense, which may obscure small masses FINDINGS: Masses in the upper outer quadrant of the left breast are stable or decreased in size henny red with prior examination, consistent with benign masses. There is no evidence of suspicious mass, c alcification, or architectural distortion to suggest malignancy in either breast. There has been no s uspicious interval change. IMPRESSION: 1. No mammographic evidence of malignancy. 2. Recommend routine screening mammography in one year. BI-RADS Category 2: Benign finding(s). Reviewed, dictated and finalized at location B.
== END 2024-06-06 11:40 | disposition home or self-care (01) ==
PROVIDERS: PCP Family Medicine Adolescent Medicine; Visit Provider Family Medicine Adolescent Medicine
DX: Z12.31 Encounter for screening mammogram for malignant neoplasm of breast (principal)
CPT/HCPCS: 77063; 77067

== ENCOUNTER 2024-11-01 11:00 | Outpatient (CLI) | payer OTHER, SELFPAY ==
[2024-11-01 11:50] LABS: Hematocrit 33.3 % (37.0-47.0); Hemoglobin 10.9 g/dL (12.0-15.0); Immature Granulocyte Percent A 0.3 % (0-0.5); Lymphocytes Absolute Auto 1.54 K/mm3 (0.9-3.2); Mean Corpuscular HGB Conc 32.7 g/dl (32-36); Mean Corpuscular Hemoglobin 31.1 pg (26-34); Mean Corpuscular Volume 94.9 fl (80-100); Nucleated Red Blood Cells Absolute Auto 0.000 K/mm3 (0.0-0.012); Nucleated Red Blood Cells Perc 0.0 % (0.0-0.2); Platelet Count Result 299 k/mm3 (150-375); Red Blood Count 3.51 M/mm3 (4.2-5.4); White Blood Count 6.5 K/mm3 (4.5-10.0)
--- OUTSIDE RECORDS SUMMARY | 2024-11-01 11:56 | XMS_ITS | Clinical Summary ---
Author Organization [facility] Address [address] [place] [address] Care Team Providers Care [employer] Launch Commander Name Role Phone Fernando Patino MD Primary [...] calcification. Assessment & Plan (04/10/2020 6:22 PM [employer]): Hypertension has apparently required treatment only for [...] time. Assessment & Plan (04/10/2020 6:23 PM [employer]): Will begin rosuvastatin 5 mg q.h.s.. Suggested that she take Co Q10 with that. Coronary artery calcification seen on CT scan Assessment & Plan (05/14/2020 6:51 PM CDT): Stress echo to rule out myocardial ischemia. Risk factor modification. Assessment & Plan (04/10/2020 6:23 PM [employer]): She has no symptoms suggesting myocardial ischemia [...] Doppler. Assessment & Plan (04/10/2020 6:22 PM [employer]): Lungs sound clear. This may be hypertension [...] on file Legal Sex Female 10:11 AM [employer] Gender Identity Not on file Sexual Orientation Zheng 04/03/2020 9: 57 AM [employer] Obstetrics History Last Filed Vital Signs Vital Sign Reading Time Taken Comments Blood Pressure 156/80 09/22/2023 2:49 PM CDT Pulse 78 05/14/2020 11:33 AM CDT Temperature - - Respiratory Rate - - Oxygen Saturation 98% 05/14/2020 11:33 AM CDT Inhaled Oxygen Concentration - - Weight 55.8 kg (123 lb) 05/14/2020 11:33 AM CDT Height 154.9 cm (5' 1) 05/14/2020 11:33 AM CDT Body Mass Index 23.24 05/14/2020 11:33 AM CDT Plan of Treatment Not on file Insurance [facility] Care Teams [employer] Launch [employer] Relationship Specialty Start Date End Date Fernando Patino MD PCP - General Family Medicine 03/19/20
--- OUTSIDE RECORDS SUMMARY | 2024-11-01 11:56 | XMS_ITS | Encounter Summary ---
Author Organization [facility] Address [facility] [place] [address] Care Team Providers Care Choker Hooker Name Role Phone ChristopherFloresita Primary Care Provider [phone] Encounter Details Date Type Department Care Team (Late st Contact Info) Description 10/17/2024 Results Follow-Up [facility] - [address], [address] [place] [address] Callie Fritz MD [address] [place], [place] [id number] TSH W/REFLEX, VITAMIN B12 / FOLATE Social History Tobacco Use Types Packs/Day Years Used Date Smoking Tobacco: Never Smokeless Tobacco: Never Alcohol Use Standard Drinks/Week Comments Never 0 (1 standard drink = 0.6 oz pur e alcohol) B1300 Health Literacy Answer Date Recor ded How often do you need to hav e someone help you when you read instructions, pamphlets, or other written material from your doctor or pharmacy? Sometimes 10/02/2024 [facility] Utilities Answer Date Recorded In the past 12 months has th e electric, gas, oil, or water company threatened to shut off services in your home? No 10/02/2024 Humiliation, Afraid, Rape, and Kick questionnair e Answer Date Recorded Within the last year, have y ou been afraid of your partner or ex-partner? No 10/02/2024 Within the last year, have y ou been humiliated or emotionally abused in other ways by your partner or ex-partner? No Within the last year, have y ou been kicked, hit, slapped, or otherwise physically hurt by your partner or ex-partner? No 10/02/2024 Within the last year, have y ou been raped or forced to have any kind of sexual activity by your partner or ex-partner? No 10/02/2024 Social Connection and Isolat ion Panel [NHANES] Answer Date Recorded In a typical week, how many times do you talk on the phone with family, friends, or neighbors? Three times a week 10/02/2024 How often do you get togethe r with friends or relatives? Twice a week 10/02/2024 How often do you attend chur or sabianism services? Never 10/02/2024 Do you belong to any clubs o r organizations such as hinduism groups, unions, fraternal or athletic groups, or school groups? Yes 10/02/2024 How often do you attend meet ings of the clubs or organizations you belong to? More than 4 times per year 10/02/2024 Are you , , di vorced, , never , or living with a partner? 10/02/2024 AUDIT-C Answer Date Recorded Q1: How often do you have a drink containing alcohol? Never 10/02/2024 Q2: How many drinks containi ng alcohol do you have on a typical day when you are drinking? Patient does not drink Q3: How often do you have si x or more drinks on one occasion? Never 10/02/2024 Overall Financial Resource Strain (CARDIA) Answe r Date Recorded How hard is it for you to pa y for the very basics like food, housing, medical care, and heating? Not hard at all 10/02/2024 PHQ-2 Answer Date Recorded Patient Health Questionnaire-2 Score 0 08/29/[address] [facility] Occup[facility] - Occupational Stress Questionnaire Answer Date Recorded Do you feel stress - tense, restless, nervous, or anxious, or unable to sleep at night because your mind is troubled all the time - these days? Not at all 10/02/2024 Exercise Vital Sign Answer Date Recorde d On average, how many days pe r week do you engage in moderate to strenuous exercise (like a brisk walk)? 3 days 10/02/2024 On average, how many minutes do you engage in exercise at this level? 30 min 10/02/2024 Hunger Vital Sign Answer Date Recorded Within the past 12 months, y ou worried that your food would run out before you got the money to buy more. Never true 10/03/19 25 Within the past 12 months, t he food you bought just didn't last and you didn't have money to get more. Never true 10/02/2024 PRAPARE - Transportation Answer Date Re corded In the past 12 months, has l ack of transportation kept you from medical appointments or from getting medications? No 09/22 In the past 12 months, has l ack of transportation kept you from meetings, work, or from getting things needed for daily living? No 10/02/2024 Housing Stability Vital Sign Answer Nick e Recorded In the last 12 months, was t here a time when you were not able to pay the mortgage or rent on time? No 10/02/2024 In the past 12 months, how m any times have you moved where you were living? 0 10/02/2024 At any time in the past 12 m [facility], were you homeless or living in a penitentiary (including now)? No 10/02/2024 Comments No Sex and Gender Information Value Date Recorded Sex Assigned at Female 10/02/2024 2:35 PM CDT Legal Sex Female 4:50 PM CDT Gender Identity Not on file Sexual Orientation Not on file documented as of this encounter Functional Status * Are you deaf or do you have serious difficulty hearing Answer Date of Assessment Author Status No 10/02/2024 10:29 PM CDT Taylor Mondragon R N Active * Are you blind or do you have serious difficulty seeing, even when wearing glasses? Answer Date of Assessment Author Status No 10/02/2024 10:29 PM CDT Taylor Mondragon R N Active * Do you have serious difficulty walking or climbing stairs? Answer Date of Assessment Author Status Yes 10/02/2024 10:29 PM CDT Taylor Mondragon R N Active * Do you have difficulty dressing or bathing? Answer Date of Assessment Author Status No 10/02/2024 10:29 PM CDT Taylor Mondragon R N Active * Because of a physical, mental, or emotional condition, do you have difficulty doing errands alone such as visiting a doctor's office or shopping? Answer Date of Assessment Author Status No 10/02/2024 10:29 PM CDT Taylor Mondragon R N Active documented as of this encounter Mental Status * Because of a physical, mental, or emotional condition, do you have serious difficulty concentrating, remembering, or making decisions? Answer Entry Date Author Status No 10/02/2024 10:29 PM CDT Taylor Mondragon R N Active documented in this encounter Progress Notes * Callie Fritz MD - 10/17/2024 2:21 PM CDT Please let patient know her labs look okay. documented in this encounter Plan of Treatment Upcoming Encounters Date Type Department Care Team (Late st Contact Info) Description 10/18/2025 10:40 AM CDT Office Visit [facility] Multispecialty Care - [facility] [address] [facility], [address] [place] [address] Callie Fritz MD [address] [place] [address] documented as of this encounter Visit Diagnoses Not on filedocumented in this encounter Care Teams Choker Hooker Relationship Specialty Start Date End Date Floresita White DO [address] [place] [address] PCP - General FAMILY PRACTICE 08/29/24 documented as of this encounter
--- OUTSIDE RECORDS SUMMARY | 2024-11-01 11:57 | XMS_ITS | Clinical Summary ---
Author Organization [facility] Address [address] [place] [address] Care Team Providers Care Manager Product Management Name Role Phone Floresita White Primary Care Provider [phone] Allergies Active Allergy Reactions Criticality Noted Date Comments Lisinopril Cough Low 04/09/2020 Nystatin Myalgias 12/31/2022 Medications albuterol sulfate HFA 108 (90 Base) MCG/ACT inhaler Inhale 1 puff into the lungs every 4 (four) hours as needed for Shortness of breath or Wheezing. Active rosuvastatin (CRESTOR) 5 MG tablet Take 1 tablet (5 mg total) by mouth nightly at bedtime. Active traZODone (DESYREL) 150 MG tablet Take 1 tablet (150 mg total) by mouth nightly. Active amLODIPine (NORVASC) 10 MG tablet Take 1 tablet (10 mg total) by mouth daily. 30 tablet 10/07/19 25 Active losartan (COZAAR) 50 MG tablet Take 1 tablet (50 mg total) by mouth daily. 30 tablet 10/08/19 25 Active losartan (COZAAR) 100 MG tablet Take 1 tablet (100 mg total) by mouth every evening. 08/03/19 25 025 Discontinued(St op Taking at Discharge) losartan (COZAAR) 50 MG tablet Take 1 tablet (50 mg total) by mouth daily. 30 tablet 10/03/19 25 025 Discontinued losartan (COZAAR) 50 MG tablet Take 1 tablet (50 mg total) by mouth daily. 30 tablet 10/07/19 25 025 Discontinued(St op Taking at Discharge) Active Problems Problem Noted Date Diagnosed Date Hypertensive urgency 10/02/2024 Coronary artery calcification seen on CT scan Dyspnea on exertion 04/09/2020 Hypertension, essential 04/09/2020 Pure hypercholesterolemia 04/09/2020 Abnormal mammogram 08/13/2014 Overview (10/02/2024): Unspecified abnormal mammogram;Recorded Elsewhere: No Location: [facility] Source: EHR Chronic: N Practice ID: [id number] Billable Time: 01:59:14 PM Insomnia 07/26/2014 Overview (10/02/2024): Insomnia;Recorded Elsewhere: No Location: [facility] Source: EHR Chronic: N Practice ID: [id number] Billable Time: 01:30:00 PM Microscopic hematuria 07/26/2014 Overview (10/02/2024): MICROSCOPIC HEMATURIA;Recorded Elsewhere: No Location: [facility] Source: EHR Chronic: N Practice ID: [id number] Billable Time: 01:30:00 PM Osteopenia 10/10/2013 Overview (10/02/2024): Osteoporosis;Recorded Elsewhere: No Location: [facility] Source: EHR Chronic: N Practice ID: [id number] Billable Time: 12:00:00 PM Proteinuria 06/01/2013 Overview (10/02/2024): Proteinuria;Recorded Elsewhere: No Location: [facility] Source: EHR Chronic: N Practice ID: [id number] Billable Time: 10:00:00 AM Encounters Date Type Department Care Team Description 10/17/2024 12:15 PM CDT - 10/17/2024 11:59 PM CDT Hospital Encounter [facility] [place] [address] Callie Fritz MD Discharge Disposition: Home or Self Care (Routine Discharge) 10/17/2024 11:20 AM CDT Office Visit [facility] - [facility] [address] [facility] [address] [place] [phone] Callie Fritz MD Follow Up 10/17/2024 Results Follow-Up [facility] - [address], [address] [place] [phone] Callie Firtz MD TSH W/REFLEX, VITAMIN B12 / FOLATE 10/17/2024 Travel 10/06/2024 Telephone [facility] - [address], [address] [place] [phone] Callie Fritz MD Appointment Request 10/02/2024 4:12 PM CDT - 10/06/2024 12:33 PM CDT Hospital Encounter [facility] Telemetry Unit A [place] [id number] Tara Bocanegra MD Jerkovich, Adria, MD Malcolm, MD Clifford Haines, Brunilda Corona, APNP Hypertension Discharge Disposition: Home or Self Care (Routine Discharge) 10/02/2024 1:40 PM CDT Office Visit [facility] - [address], [address] [place] [address] Callie Fritz MD Follow Up (Hyperreflexia) 10/02/2024 Travel 08/29/2024 1:20 PM CDT Office Visit [facility] - [address], [address] [place] [address] Callie Fritz MD New Patient (Off balance ) 08/29/2024 Travel from Last 3 Months Immunizations Immunization Administration Dates Next Due Arexvy Respiratory Syncytial Virus (RSV, adjuvanted) 0.5 mL, PF 12/04/2022 Fluzone High Dose - >Age 65 (Prefilled Syringe) 12/04/2022,11/11/2021,11/22/2020,2019 Influenza (Generic) 11/24/2012 PFIZER COVID-19 (SCHULTE CAP), MRNA, LNP-S, PF, 30 MCG/0.3 ML TAWANNA-SUCROSE, IM 12/04/2022 PFIZER COVID-19 (ORIGINAL FORMULATION, PURPLE CAP) mRNA, LNP-S, PF, 30 MCG/0.3 ML DOSE 11/11/2021,06/24/2021 Zoster (Zostavax) 98875 Unt/0.65Ml 04/04/2018 Family History Medical History Relation Comments Cancer Daughter Relation Status Comments Daughter Alive Social History Tobacco Use Types Packs/Day Years Used Date Smoking Tobacco: Never Smokeless Tobacco: Never Tobacco Cessation:Counseling Given: No Alcohol Use Standard Drinks/Week Comments Never 0 (1 standard drink = 0.6 oz pur e alcohol) B1300 Health Literacy Answer Date Recor ded How often do you need to hav e someone help you when you read instructions, pamphlets, or other written material from your doctor or pharmacy? Sometimes 10/02/2024 [facility] Utilities Answer Date Recorded In the past 12 months has [employer], gas, oil, or water [employer] threatened to shut off services in your [...] 10/02/2024 How often do you attend chur ch or latter day services? Never 10/02/2024 Do you belong to any clubs o r organizations such as anabaptism groups, unions, fraternal or athletic groups, or [...] Recorded Patient Health Questionnaire-2 Score 0 08/29/2024 [facility] of Occupat ional Health - Occupational Stress [...] No 10/02/2024 Housing Stability Vital Sign Answer Nikc e Recorded In the last 12 months, was t here a time when you were not able to pay the mortgage or rent on time? No 10/02/2024 In the past 12 months, how m any times have you moved where you were living? 0 10/02/2024 At any time in the past 12 m [facility], were you homeless or living in a skilled nursing (including now)? No 10/02/2024 Comments No Sex and Gender Information Value Date Recorded Sex Assigned at Female 10/02/2024 2:35 PM CDT Legal Sex Female 4:50 PM CDT Gender Identity Not on file Sexual Orientation Not on file Last Filed Vital Signs Vital Sign Reading Time Taken Comments Blood Pressure 112/80 10/17/2024 11:04 AM CDT Pulse 91 10/17/2024 11:04 AM CDT Temperature 36.8 C (98.3 F) 10/17/2024 11:04 AM CDT Respiratory Rate 18 10/06/2024 7:37 AM CDT Oxygen Saturation 98% 10/17/2024 11:04 AM CDT Inhaled Oxygen Concentration - - Weight 53.5 kg (118 lb) 10/17/2024 11:04 AM CDT Height 154.9 cm (5' 1) 10/17/2024 11:04 AM CDT Body Mass Index 22.3 10/17/2024 11:04 AM CDT Plan of Treatment Upcoming Encounters Date Type Department Care Team (Late st Contact Info) Description 10/18/2025 10:40 AM CDT Office Visit [facility] Medical [facility] Multispecialty Care - [address], [address] [place] [phone] Callie Fritz MD [address] [place], [place] [phone] Health Maintenance Due Date Last Done Comments DTaP, Tdap and Td Vaccines (1 - Tdap) 06/06/1964 Pneumococcal Vaccine: 50+ Years (1 of 2 - PCV) 06/06/1964 Annual Medicare Wellness Visit 2009 Dexa Scan (General) 2009 Zoster Vaccines (2 of 3) 05/30/2018 04/04/2018 COVID-19 Vaccine ( season) 2024 12/04/2022, 12/04/2022, 11/11/2021, Additional history exists RSV Immunization or 60+ Years Completed 12/04/2022 PHQ-2 (Physician [place]) Completed 08/29/2024 Meningococcal B Vaccine Aged Out No l onger eligible based on patient's age to complete this topic Meningococcal Vaccine Aged Out No nirav satish eligible based on patient's age to complete this topic RSV Immunizations Under 20 Months Aged Out No longer eligible based on patient's age to complete this topic Procedures Procedure Name Priority Date/Time Associated Diagnosis Comments VITAMIN B12 / FOLATE Routine 10/17/2024 12:18 PM CDT Myelopathy ([facility]) TSH W/REFLEX Routine 10/17/2024 12:18 PM CDT Myelopathy ([facility]) Disorder of muscle, unspecified BASIC METABOLIC PANEL STAT 10/06/2024 5:58 AM CDT CBC W/DIFF AUTOMATED Routine 10/06/2024 5:58 AM CDT CBC W/DIFF AUTOMATED Routine 10/05/2024 5:08 AM CDT BASIC METABOLIC PANEL Routine 10/05/2024 5:08 AM CDT MRI THOR SPINE WO CON Today 10/04/2024 7:59 PM CDT MRI BRAIN WO CON Today 10/04/2024 7:59 PM CDT OLIGOCLONAL BANDS *CSF AND SERUM REQUIRED* STAT 10/04/2024 12:14 PM CDT CULTURE, CSF W/ GRAM STAIN STAT 10/04/2024 12:14 PM CDT CULTURE, FUNGUS W/ STAIN STAT 10/04/2024 12:14 PM CDT PROTEIN TOTAL CSF STAT 10/04/2024 12: 14 PM CDT GLUCOSE CSF STAT 10/04/2024 12:14 PM CDT CELL COUNT, CSF STAT 10/04/2024 12:14 PM CDT IR LUMB PUNCTURE DIAGNOSTIC Today 10/04/2024 12:13 PM CDT IGG SYNTHESIS RATE *CSF AND SERUM REQUIRED* STAT 10/04/2024 12:10 PM CDT PROTHROMBIN TIME, VENOUS Routine 10/04/2024 10:13 AM CDT CBC W/DIFF AUTOMATED STAT 10/04/2024 9:08 AM CDT COMPREHENSIVE METABOLIC PANEL STAT 10/04/2024 9:08 AM CDT MRI CERV SPINE WO CON Today 10/03/2024 7:20 PM CDT USE ECHOCARDIOGRAM W CON Today 10/03/2024 3:00 PM CDT PRO-BRAIN NATRIURETIC PEPTIDE Routine 10/03/2024 5:00 AM CDT TROPONIN, QUANT TIMED 10/03/2024 5:00 AM CDT MAGNESIUM Routine 10/03/2024 5:00 AM CDT BASIC METABOLIC PANEL Routine 10/03/2024 5:00 AM CDT CBC W/DIFF AUTOMATED Routine 10/03/2024 5:00 AM CDT CTA CHEST FOR DISSECTION SARBJIT 10/02/2024 11:49 PM CDT TROPONIN, QUANT TIMED 10/02/2024 9:22 PM CDT ECG 12-LEAD STAT 10/02/2024 4:32 PM CDT XR CHEST PORTABLE STAT 10/02/2024 2:4 8 PM CDT MAGNESIUM STAT 10/02/2024 2:36 PM CDT TROPONIN, QUANT STAT 10/02/2024 2:36 PM CDT COMPREHENSIVE METABOLIC PANEL STAT 10/02/2024 2:36 PM CDT CBC W/DIFF AUTOMATED STAT 10/02/2024 2:36 PM CDT from Last 3 Months Results * VITAMIN B12 / FOLATE (10/17/2024 12:18 PM CDT) Pathologist [facility] VITAMIN B12 S/P/B 457 254 - 1,320 PG/ML 10/17/2024 1:16 PM CDT [facility] FOLATE 17.5 3.1 - 17.5 NG/ML 10/17/2024 1:16 PM CDT [facility] 10/17/2024 12:1 8 PM CDT us Callie Fritz MD LABORATORY Final Re sult [facility] [address] [place] [address], * TSH W/REFLEX (10/17/2024 12:18 PM CDT) Pathologist [facility] TSH 1.960 0.358 - 3.74 uIU/ML 10/17/2024 1:16 PM CDT [facility] Comment: HIGH DOSES OF BIOTIN MAY INTERFERE WITH THIS TEST RESULT. CORRELATION TO CLINICAL HISTORY AND PRESENTATION RECOMMENDED. FREE T4 NOT INDICATED 10/17/2024 12:1 8 PM CDT us Callie Fritz MD LABORATORY Final Re sult [facility] [address] [place] [address], [place] [phone] * (ABNORMAL) BASIC METABOLIC PANEL (10/06/2024 5:58 AM CDT) Only the most recent of3 resultswithin the time period is included. GLUCOSE 91 70 - 99 MG/DL 10/06/2024 11:03 AM CDT [facility] BUN 31(H) 7 - 18 MG/DL 10/06/2024 11:03 AM CDT [facility] CREATININE S/P/B 0.99 0.55 - 1.02 MG/DL 10/06/2024 11:03 AM CDT [facility] SODIUM S/P/B 140 136 - 145 MMOL/L 10/06/2024 11:03 AM CDT [facility] POTASSIUM S/P/B 4.0 3.5 - 5.1 MMOL/L 10/06/2024 11:03 AM CDT [facility] CHLORIDE S/P/B 110 97 - 115 MMOL/L 10/06/2024 11:03 AM CDT [facility] CO2 24.8 21 - 32 MMOL/L 10/06/2024 11:03 AM CDT [facility] CALCIUM S/P/B 8.6 8.5 - 10.1 MG/DL 10/06/2024 11:03 AM CDT [facility] ANION GAP 5.2 2 - 10 MMOL/L 10/06/2024 11:03 AM CDT [facility] BUN CREATININE RATIO 31.2(H) 6 - 26 10/06/2024 11:03 AM CDT [facility] GFR ESTIMATE 58(L) >90 ML/MIN/1.7 3 M2 10/06/2024 11:03 AM CDT [facility] Comment: NOTE: eGFR is not calculated for patients <18 years of age or gender unknown. This is an estimated GFR calculation using the new CKD EPI creatinine equation without race and so does not require a correction factor for race. This estimated GFR should not be used for calculating drug doses. 10/06/2024 5:58 AM CDT Brunilda Fierro APNP LABORATORY Final Res ult [facility] [address] [place] [address], [place] [phone] * (ABNORMAL) CBC W/DIFF AUTOMATED (10/06/2024 5:58 AM CDT) Only the most recent of5 resultswithin the time period is included. WBC 5.89 4.5 - 11.0 x10'3/uL 10/06/2024 6:54 AM CDT [facility] RBC 3.76(L) 4.20 - 5.40 x10'6/uL 10/06/2024 6:54 AM CDT [facility] HGB 11.7(L) 12.0 - 16.0 G/DL 10/06/2024 6:54 AM CDT [facility] HCT 34.8(L) 38.0 - 48.0 % 10/06/2024 6:54 AM CDT [facility] MCV 92.6 81.0 - 99.0 FL 10/06/2024 6:54 AM CDT [facility] MCH 31.1(H) 27.0 - 31.0 PG 10/06/2024 6:54 AM CDT [facility] MCHC 33.6 32.0 - 36.0 G/DL 10/06/2024 6:54 AM CDT [facility] RDW 13.0 11.5 - 14.5 % 10/06/2024 6:54 AM CDT [facility] PLT 269 130 - 400 x10'3/uL 10/06/2024 6:54 AM CDT [facility] MPV 9.9 9.3 - 12.2 FL 10/06/2024 6:54 AM CDT [facility] DIFFERENTIAL TYPE AUTOMATED DIFFERENTIAL 10/06/2024 6:54 AM CDT [facility] NEUTROPHILS % 49.5 % 10/06/2024 6:54 AM CDT [facility] LYMPHOCYTES % 34.8 % 10/06/2024 6:54 AM CDT [facility] MONOCYTES % 9.7 % 10/06/2024 6:54 AM CDT [facility] EOSINOPHILS 4.6 % 10/06/2024 6:54 AM CDT [facility] BASOPHILS 1.2 % 10/06/2024 6:54 AM CDT [facility] IMMATURE GRANS % 0.2 % 10/07/19 6:54 AM CDT [facility] ABS. NEUTROPHILS 2.92 1.80 - 7.70 x10'3/uL 10/06/2024 6:54 AM CDT [facility] ABS. LYMPHOCYTES 2.05 1.00 - 4.80 x10'3/uL 10/06/2024 6:54 AM CDT [facility] ABS. MONOCYTES 0.57 0.24 - 0.86 x10'3/uL 10/06/2024 6:54 AM CDT [facility] ABS. EOSINOPHILS 0.27 0.04 - 0.36 x10'3/uL 10/06/2024 6:54 AM CDT [facility] ABS. BASOPHILS 0.07 0.01 - 0.08 x10'3/uL 10/06/2024 6:54 AM CDT [facility] ABS. IMMATURE GRANULOCYTES 0.01 0.00 - 0.49 x10'3/uL 10/06/2024 6:54 AM CDT [facility] 10/06/2024 5:58 AM CDT Brunilda Corona Clifford AP LABORATORY Final Res ult [facility] [address] [place] [address], [place] [phone] * MRI THOR SPINE WO CON (10/04/2024 7:59 PM CDT) Anatomical Region Laterality Modality Spine Magnetic Resonan ce 10/04/2024 8:27 PM CDT Impressions 10/04/2024 8:30 PM CDT IMPRESSION: 1. Unremarkable noncontrasted appearance of the thoracic spinal cord. 2. Mild degenerative changes of the thoracic spine. Referred By: Interpreted By: Brenda Umana DO, 10/04/2024 8:27 PM Narrative 10/04/2024 8:30 PM CDT [facility] [address] [place], [place] [address] EXAMINATION: MRI THOR SPINE WO CON REPORT DATE: 10/04/2024 8:27 PM INDICATION: MS workup COMPARISON(S): CTA chest 10/02/2024. TECHNIQUE: Multiplanar, multisequence MR imaging of the thoracic spine. Contrast: None. FINDINGS: BONES Alignment: Increased thoracic kyphosis, otherwise anatomic alignment. Vertebrae: Vertebral body heights are normal. Marrow: Normal. No lesions or marrow edema. SPINAL CORD Normal. SOFT TISSUES Paraspinal: Normal. Chest: Imaged soft tissues of the chest are normal. Abdomen: Imaged soft tissues of the upper abdomen are normal. DISC LEVELS: Mild multilevel facet arthrosis causing mild multilevel foraminal narrowing Procedure Note Brenda Umana DO - 10/04/2024 [facility] [address] [place], [place] [address] EXAMINATION: MRI THOR SPINE WO CON REPORT DATE: 10/04/2024 8:27 PM INDICATION: MS workup COMPARISON(S): CTA chest 10/02/2024. TECHNIQUE: Multiplanar, multisequence MR imaging of the thoracic spine. Contrast: None. FINDINGS: BONES Alignment: Increased thoracic kyphosis, otherwise anatomic alignment. Vertebrae: Vertebral body heights are normal. Marrow: Normal. No lesions or marrow edema. SPINAL CORD Normal. SOFT TISSUES Paraspinal: Normal. Chest: Imaged soft tissues of the chest are normal. Abdomen: Imaged soft tissues of the upper abdomen are normal. DISC LEVELS: Mild multilevel facet arthrosis causing mild multilevel foraminalnarrowing IMPRESSION: 1. Unremarkable noncontrasted appearance of the thoracic spinal cord. 2. Mild degenerative changes of the thoracic spine. Referred By: Interpreted By: Brenda Umana DO, 10/04/2024 8:27 PM us Brunilda VANN MRI Final Res ult * MRI BRAIN WO CON (10/04/2024 7:59 PM CDT) Anatomical Region Laterality Modality Head Magnetic Resonan ce 10/04/2024 10:1 1 PM CDT Impressions 10/04/2024 10:13 PM CDT IMPRESSION: ===== 1. No acute intracranial abnormalities. 2. Mild atrophy and small vessel ischemic disease. 3. Multiple FLAIR signal abnormalities in the periventricular white matter. Many of these have perpendicular orientation to the corpus callosum. Although nonspecific, demyelinating disease is a consideration. No evidence of active demyelination. Referred By: Interpreted By: Epifanio Eng MD, 10/04/2024 10:11 PM Narrative 10/04/2024 10:13 PM [address]T [address] [address] EXAMINATION: MRI brain without contrast. EXAM DATE/TIME: 10/04/2024 7:05 PM REASON FOR EXAM: ORDERING PROVIDER COMMENT: MS workup COMPARISON: No prior brain MRI TECHNIQUE: Multiplanar multisequence MRI of the brain was obtained without the use of IV contrast agent. FINDINGS: There is no abnormal increased signal on diffusion-weighted imaging to suggest an acute infarct. Ventricles are minimally enlarged with prominent bilateral sulci. No extra-axial fluid collections. No evidence of mass, mass effect, or midline shift. Major intracranial intravascular flow voids at the skull base are intact. Visual is portion of parotid glands unremarkable. Paranasal sinuses are clear. Sella and suprasellar regions unremarkable. No abnormal signal in the visualized cervical cord on T1 imaging. Patchy areas of FLAIR signal abnormality are seen in the periventricular white matter. Many of these have perpendicular orientation to the corpus callosum. There is no convincing involvement of the corpus callosum. No involvement of the brain structures are visualized upper cervical cord. No intracranial hemorrhage. Parotid glands unremarkable. Mastoid air cells are clear. Orbital contents unremarkable. ===== Procedure Note Epifanio Eng MD - 10/04/[address] [address] EXAMINATION: MRI brain without contrast. EXAM DATE/TIME: 10/04/2024 7:05 PM REASON FOR EXAM: ORDERING PROVIDER COMMENT: MS workup COMPARISON: No prior brain MRI TECHNIQUE: Multiplanar multisequence MRI of the brain was obtained withoutthe use of IV contrast agent. FINDINGS: There is no abnormal increased signal on diffusion-weightedimaging to suggest an acute infarct. Ventricles are minimally enlargedwith prominent bilateral sulci. No extra-axial fluid collections. Noevidence of mass, mass effect, or midline shift. Major intracranialintravascular flow voids at the skull base are intact. Visual is portionof parotid glands unremarkable. Paranasal sinuses are clear. Sella andsuprasellar regions unremarkable. No abnormal signal in the visualizedcervical cord on T1 imaging. Patchy areas of FLAIR signal abnormality areseen in the periventricular white matter. Many of these haveperpendicular orientation to the corpus callosum. There is no convincinginvolvement of the corpus callosum. No involvement of the brainstructures are visualized upper cervical cord. No intracranialhemorrhage. Parotid glands unremarkable. Mastoid air cells are clear.Orbital contents unremarkable. ===== IMPRESSION: ===== 1. No acute intracranial abnormalities. 2. Mild atrophy and small vessel ischemic disease. 3. Multiple FLAIR signal abnormalities in the periventricular whitematter. Many of these have perpendicular orientation to the corpuscallosum. Although nonspecific, demyelinating disease is a consideration.No evidence of active demyelination. Referred By: Interpreted By: Epifanio Eng MD, 10/04/2024 10:11 PM Brunilda Fierro SOO MRI Final Res ult * CULTURE, CSF W/ GRAM STAIN (10/04/2024 12:14 PM CDT) SPEC DESCRIPTION CEREBROSPINAL FLUID 10/04/2024 12:14 PM CDT [facility] SPECIAL REQUESTS NO SPECIAL REQUEST 10/04/2024 12:14 PM CDT [facility] GRAM STAIN RESULT NO WHITE BLOOD CELLS SEEN 10/04/2024 12:58 PM CDT [facility] GRAM STAIN RESULT NO ORGANISMS SEEN 10/04/2024 12:58 PM CDT [facility] CULTURE RESULT NO GROWTH 5 DAYS 09/22 7:52 AM CDT [facility] CEREBROSPINAL FLUID SPECIMEN / Unknown 10/04/2024 12:14 PM CDT 10/04/2024 12:24 PM CDT Brunilda VANN MICROBIOLOGY - GENERAL OR DERABLES Final Result Performing Organization Address City/[facility]/ZIP Co de Phone Number [facility] [address] [place] [address], [place] [phone] * CELL COUNT, CSF (10/04/2024 12:14 PM CDT) TUBE NUMBER 3 10/04/2024 2:52 PM CDT [facility] TOTAL VOLUME (CSF) 13.0 ML 10/04/2024 2:52 PM CDT [facility] COLOR (CSF) COLORLESS 10/04/2024 2:52 PM CDT [facility] CLARITY (CSF) CLEAR 10/04/2024 2:52 PM CDT [facility] RBC (CSF) 0 CELLS/UL 10/04/2024 2:52 PM CDT [facility] TOTAL NUCLEATED CELL (CSF) 0 0 - 5 CELLS/UL 10/04/2024 2:52 PM CDT [facility] CSF, LUMBAR 10/04/2024 12:1 4 PM CDT Brunilda VANN BODY FLUIDS AND STOOLS OR DERABLES Final Result Performing Organization Address City/[facility]/ZIP Co de Phone Number [facility] [address] [place] [address], [place] [phone] * (ABNORMAL) GLUCOSE CSF (10/04/2024 12:14 PM CDT) GLUCOSE (CSF) 75(H) 40 - 70 MG/DL 10/04/2024 12:44 PM CDT [facility] CEREBRAL SPINAL FLUID (CSF, LUMBAR) 10/04/2024 12:14 PM CDT Brunilda Fierro AP BODY FLUIDS AND STOOLS OR DERABLES Final Result Performing Organization Address [facility] Co de Phone Number [facility] [address] [place] [address], [place] [phone] * PROTEIN TOTAL CSF (10/04/2024 12:14 PM CDT) TOTAL PROTEIN (CSF) 45 15 - 45 MG/DL 10/04/2024 12:44 PM CDT [facility] CEREBRAL SPINAL FLUID (CSF, LUMBAR) 10/04/2024 12:14 PM CDT Brunilda VEGANP BODY FLUIDS AND STOOLS OR DERABLES Final Result Performing Organization Address [facility] Co de Phone Number [facility] [address] [place] [address], [place] [phone] * OLIGOCLONAL BANDS (10/04/2024 12:14 PM CDT) OLIGOCLONAL BANDS Absent Absent 025 4:48 PM CDT [facility] Comment: No Oligoclonal bands are identified in the patient's CSF when compared to the corresponding serum sample. Oligoclonal bands are present in the CSF of more than 85% of patients with clinically definite multiple sclerosis (MS). To distinguish between oligoclonal bands in the CSF due to a peripheral gammopathy and oligoclonal bands due to local production in the TELEPHONE SERVICE REPRESENTATIVE, serum and CSF should be tested simultaneously. Oligoclonal bands can however be observed in a variety of other diseases, e.g., subacute sclerosing panen- cephalitis, inflammatory polyneuropathy, TELEPHONE SERVICE REPRESENTATIVE lupus, and brain tumors and infarctions. The clinical significance of a numerical band count, determined by isoelectric focusing, has not been definitively defined. The data should be interpreted in conjunction with all pertinent clinical and laboratory data for this patient. Test Performed by [facility], [facility] / [facility], [address] [place] [address] Fernando Finney M.D., Ph.D., Director of Laboratories , CLIA [id number] CEREBRAL SPINAL FLUID (CSF & SERUM) 10/04/2024 12:14 PM CDT Brunilda Fierro APNP BODY FLUIDS AND STOOLS OR DERABLES Final Result [facility] , [place] [phone] * IR LUMB PUNCTURE DIAGNOSTIC (10/04/2024 12:13 PM CDT) Anatomical Region Laterality Modality Spine Interventional R adiology 10/04/2024 1:45 PM CDT Impressions 10/04/2024 1:49 PM CDT =====IMPRESSION:===== Lumbar puncture performed using fluoroscopic guidance. Ordered By: BRUNILDA FIERRO Interpreted By: Nii Jose MD, 10/04/2024 1:45 PM Narrative 10/04/2024 1:49 PM CDT [facility] [address] [place], [place] [address] Examination: Lumbar puncture Exam date/time: 10/04/2024 11:49 AM Reason For Exam: Dizziness and imbalance. Weakness. Hypertension. Abnormal cervical spine MRI with question of spinal cord lesion. Comparison: Prior cervical spine MRI 10/03/2024 Fluoroscopy time: 0.0 seconds. Total of 1 image. Technique: Patient education occurred. The details of procedure were discussed with the patient including all applicable risks, benefits and alternatives. The patient's questions were answered fully. Patient's written and verbal consent were obtained. A timeout was performed during which the patient's correct identity, procedure site and procedure type were confirmed with cooperation of the patient. The patient was then positioned appropriately and the site of optimal percutaneous access was identified under imaging guidance and the skin was marked. The skin was then prepped and draped in the usual sterile fashion. Local anesthesia was obtained using 1% lidocaine. Using fluoroscopic guidance, a 22-gauge spinal needle was introduced into the lumbar thecal sac, right 3-4 interlaminar space. Spontaneous return of clear colorless CSF was observed. Opening pressure was 15 cm H2O . CSF fluid was collected into 4 sequential vials for a total of 12 mL . The needle was then removed. Fluid was sent for laboratory evaluation. The patient tolerated the procedure well with no immediate complication. Findings: Spinal needle overlies the lumbar spinal canal. Procedure Note Damon, Nii Mae MD - 10/04/[address] [address] Examination: Lumbar puncture Exam date/time: 10/04/2024 11:49 AM Reason For Exam: Dizziness and imbalance. Weakness. Hypertension.Abnormal cervical spine MRI with question of spinal cord lesion. Comparison: Prior cervical spine MRI 10/03/2024 Fluoroscopy time: 0.0 seconds. Total of 1 image. Technique: Patient education occurred. The details of procedure werediscussed with the patient including all applicable risks, benefits andalternatives. The patient's questions were answered fully. Patient'swritten and verbal consent were obtained. A timeout was performed duringwhich the patient's correct identity, procedure site and procedure typewere confirmed with cooperation of the patient. The patient was thenpositioned appropriately and the site of optimal percutaneous access wasidentified under imaging guidance and the skin was marked. The skin wasthen prepped and draped in the usual sterile fashion. Local anesthesiawas obtained using 1% lidocaine. Using fluoroscopic guidance, a 22-gauge spinal needle was introduced intothe lumbar thecal sac, right 3-4 interlaminar space. Spontaneous return ofclear colorless CSF was observed. Opening pressure was 15 cm H2O . CSFfluid was collected into 4 sequential vials for a total of 12 mL . Theneedle was then removed. Fluid was sent for laboratory evaluation. Thepatient tolerated the procedure well with no immediate complication. Findings: Spinal needle overlies the lumbar spinal canal. =====IMPRESSION:===== Lumbar puncture performed using fluoroscopic guidance. Ordered By: BRUNILDA FIERRO Interpreted By: Nii Jose MD, 10/04/2024 1:45 PM Brunilda Fierro APNP INTERVENTIONAL RADIOLOGY Final Result * IGG SYNTHESIS RATE (10/04/2024 12:10 PM CDT) CSF IGG SYNTH RATE minus2.0 minus9.9- 3.3 mg/24 h 10/07/2024 7:14 AM CDT [facility] IGG INDEX (CSF) 0.53 <0.70 7:14 AM CDT [facility] Comment: The IgG Synthesis rate, CSF and IgG index, CSF are two formulae for estimating the amount of IgG produced in the central nervous system. Evidence of increased synthesis of IgG provides support for the diagnosis of multiple sclerosis. ALBUMIN (CSF) 16.9 8.0 - 42.0 mg/dL 10/07/2024 7:14 AM CDT [facility] IGG (CSF) 1.7 0.8 - 7.7 mg/dL 10/07/2024 7:14 AM CDT [facility] IMMUNOGLOBULIN G 866 600 - 1,540 mg/dL 10/07/2024 7:14 AM CDT [facility] ALBUMIN S/P/B 4.6 3.6 - 5.1 g/dL 10/07/2024 7:14 AM CDT [facility] Comment: Test Performed by [facility], [facility] / [facility], [address] [place], [place] Fernando Finney M.D., Ph.D., Director of Laboratories , [facility] [id number] CEREBRAL SPINAL FLUID (CSF & SERUM) 10/04/2024 12:10 PM CDT Brunilda Corona [facility] Final Res ult [facility] [address] [place], [place] , [place] [phone] * PROTIME/INR, VENOUS (10/04/2024 10:13 AM CDT) PROTIME 11.2 10.2 - 12.9 SEC 10/04/2024 10:51 AM CDT [facility] INR 1.0 10/04/2024 10:51 AM CDT [facility] Comment: Recommended INR Therapeutic Goals: 2.0-3.0 Routine Therapy 2.5-3.5 Mechanical Prosthetic Valves (High Risk) 10/04/2024 10:1 3 AM CDT Brunilda Corona [facility] Final Res ult Performing Organization Address City/[facility]/ZIP Co de Phone Number [facility] [address] [place] [address], [place] [phone] * (ABNORMAL) COMPREHENSIVE METABOLIC PANEL (10/04/2024 9:08 AM CDT) Only the most recent of2 resultswithin the time period is included. GLUCOSE 101(H) 70 - 99 MG/DL 10/04/2024 10:12 AM CDT [facility] BUN 29(H) 7 - 18 MG/DL 10/04/2024 10:12 AM CDT [facility] CREATININE S/P/B 1.24(H) 0.55 - 1.02 MG/DL 10/04/2024 10:12 AM T [facility] SODIUM S/P/B 134(L) 136 - 145 MMOL/L 10/04/2024 10:12 AM T [facility] POTASSIUM S/P/B 3.7 3.5 - 5.1 MMOL/L 10/04/2024 10:12 AM T [facility] CHLORIDE S/P/B 108 97 - 115 MMOL/L 10/04/2024 10:12 AM T [facility] CO2 19.8(L) 21 - 32 MMOL/L 10/04/2024 10:12 AM T [facility] CALCIUM S/P/B 9.1 8.5 - 10.1 MG/DL 10/04/2024 10:12 AM T [facility] BILIRUBIN TOTAL S/P/B 1.4(H) 0.2 - 1.2 MG/DL 10/04/2024 10:12 AM [facility] Comment: THIS ASSAY IS NOT RECOMMENDED FOR PATIENTS UNDERGOING TREATMENT WITH ELTROMBOPAG DUE TO THE POTENTIAL FOR FALSELY ELEVATED RESULTS. TOTAL PROTEIN S/P/B 7.9 6.4 - 8.2 G/DL 10/04/2024 10:12 AM T [facility] ALBUMIN S/P/B 3.9 3.4 - 5.0 G/DL 10/04/2024 10:12 AM T [facility] AST 27 15 - 37 U/L 10/04/2024 10:12 AM T [facility] ALT 20 14 - 55 U/L 10/04/2024 10:12 AM T [facility] ALKALINE PHOSPHATASE S/P/B 83 50 - 136 U/L 10/04/2024 10:12 AM CDT [facility] ANION GAP 6.2 2 - 10 MMOL/L 10/04/2024 10:12 AM CDT [facility] BUN CREATININE RATIO 23.4 6 - 26 10/04/2024 10:12 AM CDT [facility] A/G RATIO 1.0 1.0 - 2.0 RATIO 10/04/2024 10:12 AM CDT [facility] GFR ESTIMATE 44(L) >90 ML/MIN/1.7 3 M2 10/04/2024 10:12 AM CDT [facility] Comment: NOTE: eGFR is not calculated for patients <18 years of age or gender unknown. This is an estimated GFR calculation using the new CKD EPI creatinine equation without race and so does not require a correction factor for race. This estimated GFR should not be used for calculating drug doses. 10/04/2024 9:08 AM CDT [facility] Final Res ult [facility] [address] [place] [address], [place] [phone] * MRI CERV SPINE WO CON (10/03/2024 7:20 PM CDT) Anatomical Region Laterality Modality Spine Magnetic Resonan ce 10/04/2024 12:0 2 AM CDT Impressions 10/04/2024 12:18 AM CDT IMPRESSION: 1. Suspect a tiny focus of increased T2 signal in the posterior right side of the cervical cord at C4 level on axial T2 images, not well seen on the sagittal images. Differential includes demyelinating plaque, focal myelopathy, and CSF pulsation or other artifact. Please correlate clinically. 2. Mild increased T2 signal in the cervical cord at C5 level near the midline on sagittal T2 images, sagittal STIR images, and on axial T2 images. Differential again includes demyelinating plaque, focal myelopathy, with CSF pulsation or other motion artifact not entirely excluded. May consider follow-up MRI cervical spine with and without contrast for further evaluation. If the current exam was performed on a 1.5 Shelly machine, may consider follow-up MRI utilizing at 3 Shelly MRI machine to help improve resolution. 3. Mild degenerative changes in the cervical spine as noted above with mild left foraminal narrowing at C3-4, mild right foraminal narrowing at C5-6, and mild to moderate left greater than right foraminal narrowing at C6-7. 4. Tiny posterior central disc protrusion or small central disc herniation at C2-3 and C3-4 without significant cord impingement, canal or foraminal stenosis. 5. 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 Referred By: Interpreted By: Tiffanie George MD, 10/04/2024 12:02 AM Narrative 10/04/2024 12:18 AM CDT [place] [id number] EXAMINATION: MRI Cervical Spine without Contrast. Multiplanar, multisequence MR imaging of cervical spine was performed without intravenous contrast. INDICATION: Weakness, vocal cord dysfunction. COMPARISON: None. FINDINGS: There is preservation of the normal cervical lordosis. Normal vertebral body heights are maintained. No suspicious osseous lesion. Slight degenerative anterolisthesis of C4 on C5 and minimally of C5 on C6 and C7 on T1 as well as T1 on T2. There is desiccation of all cervical disks without significant loss of disc height. Somewhat limited evaluation of the cervical cord for spinal cord lesions due to CSF pulsation artifacts. Suspect a tiny focus of increased T2 signal in the posterior right side of the cervical cord at C4 level on axial series 5 image 24, not well seen on the sagittal images. Mild increased T2 signal in the cervical cord at C5 level near the midline on sagittal series 7 image 29, sagittal series 8 images 31-32, and on axial series 9 images 71-73, with CSF pulsation or other motion artifact not entirely excluded. The prevertebral and paraspinal soft tissues are normal in appearance. Individual discs are as follows: C2-3: Tiny posterior central disc protrusion or small central disc herniation indenting the ventral subarachnoid space without evidence of significant CORD impingement, canal or foraminal stenosis. C3-4: Mild diffuse posterior annular bulge and osseous ridging with perhaps a tiny posterior central disc protrusion or tiny central disc herniation with mild facet arthropathy and uncinate hypertrophy with mild left foraminal narrowing. C4-5: Minimal diffuse posterior annular bulge with no significant disc herniation, spinal canal or foraminal stenosis. C5-6: Small posterior annular bulge and osseous region across the midline indenting the ventral subarachnoid space and abutting the anterior cervical cord with borderline or mild central canal narrowing. Mild right greater than left facet arthropathy and hypertrophy with mild right foraminal narrowing. C6-7: Mild posterior annular bulge and osteophytic ridging with bilateral uncinate hypertrophy and mild to moderate left greater than right foraminal narrowing. C7-T1: Small Tarlov's perineural cysts bilaterally in the neural foramina, left larger than right, with 2 cysts in the left neural foramen and only one on the right. No significant disc bulge, disc herniation, canal or foraminal stenosis. Procedure Note Tiffanie George MD - 10/04/[address] [address] EXAMINATION: MRI Cervical Spine without Contrast. Multiplanar,multisequence MR imaging of cervical spine was performed withoutintravenous contrast. INDICATION: Weakness, vocal cord dysfunction. COMPARISON: None. FINDINGS: There is preservation of the normal cervical lordosis. Normalvertebral body heights are maintained. No suspicious osseous lesion.Slight degenerative anterolisthesis of C4 on C5 and minimally of C5 on C6and C7 on T1 as well as T1 on T2. There is desiccation of all cervicaldisks without significant loss of disc height. Somewhat limitedevaluation of the cervical cord for spinal cord lesions due to CSFpulsation artifacts. Suspect a tiny focus of increased T2 signal in theposterior right side of the cervical cord at C4 level on axial series 5image 24, not well seen on the sagittal images. Mild increased T2 signalin the cervical cord at C5 level near the midline on sagittal series 7image 29, sagittal series 8 images 31-32, and on axial series 9 [id number], with CSF pulsation or other motion artifact not entirely excluded.The prevertebral and paraspinal soft tissues are normal in appearance.Individual discs are as follows: C2-3: Tiny posterior central disc protrusion or small central discherniation indenting the ventral subarachnoid space without evidence ofsignificant CORD impingement, canal or foraminal stenosis. C3-4: Mild diffuse posterior annular bulge and osseous ridging withperhaps a tiny posterior central disc protrusion or tiny central discherniation with mild facet arthropathy and uncinate hypertrophy with mildleft foraminal narrowing. C4-5: Minimal diffuse posterior annular bulge with no significant discherniation, spinal canal or foraminal stenosis. C5-6: Small posterior annular bulge and osseous region across the midlineindenting the ventral subarachnoid space and abutting the anteriorcervical cord with borderline or mild central canal narrowing. Mild rightgreater than left facet arthropathy and hypertrophy with mild rightforaminal narrowing. C6-7: Mild posterior annular bulge and osteophytic ridging with bilateraluncinate hypertrophy and mild to moderate left greater than rightforaminal narrowing. C7-T1: Small Tarlov's perineural cysts bilaterally in the neural foramina,left larger than right, with 2 cysts in the left neural foramen and carlita on the right. No significant disc bulge, disc herniation, canal orforaminal stenosis. IMPRESSION: 1. Suspect a tiny focus of increased T2 signal in the posterior rightside of the cervical cord at C4 level on axial T2 images, not well seen onthe sagittal images. Differential includes demyelinating plaque, focalmyelopathy, and CSF pulsation or other artifact. Please correlateclinically. 2. Mild increased T2 signal in the cervical cord at C5 level near themidline on sagittal T2 images, sagittal STIR images, and on axial [id number]. Differential again includes demyelinating plaque, focalmyelopathy, with CSF pulsation or other motion artifact not entirelyexcluded. May consider follow-up MRI cervical spine with and withoutcontrast for further evaluation. If the current exam was performed on a1.5 Shelly machine, may consider follow-up MRI utilizing at 3 Shelly MRImachine to help improve resolution. 3. Mild degenerative changes in the cervical spine as noted above withmild left foraminal narrowing at C3-4, mild right foraminal narrowing atC5-6, and mild to moderate left greater than right foraminal narrowing atC6-7. 4. Tiny posterior central disc protrusion or small central discherniation at C2- 3 and C3-4 without significant cord impingement, canal orforaminal stenosis. 5. Small Tarlov's perineural cysts bilaterally in the neural foramina atC7-T1, left larger than right. Referred By: Interpreted By: Tiffanie George MD, 10/04/2024 12:02 AM us [facility]ier[facility] Final Res ult * USE ECHOCARDIOGRAM W CON (10/03/2024 3:00 PM CDT) Anatomical Region Laterality Modality NA Echocardiogram 10/03/2024 1:48 PM CDT Narrative 10/03/2024 5:00 PM CDT Echocardiography Report Pat.Name: NORMA IVERSON Pat.ID: [id number] .Date: 10/03/2024 Exam Time: 1:48:00 PM Study Type:ECHO WITH CARDIAC DOPPLER COMP Height: 61 in Weight: 117 lb BSA: 1.5 m2 Age: 4 1945,79Y Sex: F BP: 171/82 HR: 96 bpm Sonogrphr: Taylor Rosales Pat. Stat.:Inpatient Room: CDU03 Reason for Study:Hypertension urgency Procedures: 2D, M-mode, Doppler, Color Flow, Definity was used to enhance endocardial definition. Intraveneous saline contrast was used to help determine presence of intracardiac shunting. The study quality is technically difficult. Race: W ++++++++++++++++++++++++++++++++++++ SUMMARY: ++++++++++++++++++++++++++++++++++++ The left ventricular size is normal. The left ventricular systolic function is normal. Estimated left ventricular ejection fraction is 50-55%. Mild concentric left ventricular hypertrophy. Left ventricular diastolic function is abnormal (grade 1 - impaired relaxation). Wall motion appears normal in all segments. The left atrial volume is normal ( less than 34 ml/M2). Right atrial size is normal. The agitated saline injection showed no clear evidence of shunting into the left atrium, consistent with no patent foramen ovale. The atrial septum appears aneurysmal. Normal aortic root. No evidence of aortic valve stenosis. Mild to moderate aortic regurgitation. Trace mitral regurgitation. A trace of tricuspid regurgitation. Unable to reliably quantitate pulmonary systolic pressure. ++++++++++++++++++++++++++++++++++++ FINDINGS: ++++++++++++++++++++++++++++++++++++ LV: The left ventricular size is normal. The left ventricular systolic function is normal. Estimated left ventricular ejection fraction is 50-55%. Mild concentric left ventricular hypertrophy. Left ventricular diastolic function is abnormal (grade 1 - impaired relaxation). WM: Wall motion appears normal in all segments. RV: The right ventricular size is normal. Right ventricular systolic function is normal. IVS: No evidence of ventricular septal defect. LA: The left atrial size is normal. The left atrial volume is normal ( less than 34 ml/M2). RA: Right atrial size is normal. IAS: The agitated saline injection showed no clear evidence of shunting into the left atrium, consistent with no patent foramen ovale. The atrial septum appears aneurysmal. MAGNO: No evidence of pericardial effusion. AO: Normal aortic root. PA: Estimated right atrial pressure of 3 mmHg. Unable to reliably quantitate pulmonary systolic pressure. SVn: Inferior vena cava shows >50% collapse with respiration consistent with normal right atrial pressure. AV: The aortic valve is trileaflet. No evidence of aortic valve stenosis. Mild to moderate aortic regurgitation. MV: Trace mitral regurgitation. No evidence of mitral valve stenosis. PV: Trace pulmonic regurgitation. No evidence of pulmonic valve stenosis. TV: A trace of tricuspid regurgitation. No evidence of tricuspid valve stenosis. ++++++++++++++++++++++++++++++++++++ MEASUREMENTS: ++++++++++++++++++++++++++++++++++++ DOPPLER LVOT LVOTpkPG 4.9 mmHg LVOT SV 80 ml LVOT TVI 22.3 cm PSV 111 cm/s LVOTmnPG 2.8 mmHg AV Forward Flow AV TVI 25.2 cm AV pkPG 9.9 mmHg AV pkVel 157 cm/s (100-170) Area (TVI) 3.19 cm2 (3-5) AV mnPG 4.5 mmHg Area (Arsen) 2.55 cm2 (3-5)* MV Forward Flow MV pkE 58 cm/s (60-130)* MV pkA 99 cm/s PV Forward Flow PV pkVel 129 cm/s (60-90)+* PV AC 84 msec PV pkPG 6.7 mmHg TV Regurg Flow TV pkPG 4.2 mmHg TV pkVel 102 cm/s (30-70)* TV Forward Flow TV pkE 58 cm/s Lat E' Lat e 8.08 cm/s Lat E/E' Lat E/e 7.17 Med E' Med e 5.39 cm/s Med E/E' Med E/e 10.8 AV Antegrade Flow AV AC/ET 0.23 Ratio of LVOT M 0.71 AC 52 millisecond Ratio of LVOT V 0.885 AV ET 229 millisecond Left Atrium CO 1.7 l/min CO 0.5 l/min Left Atrial Eje 56.6 % Left Atrial Eje 21.6 % Major Mcclure (End 3.4 cm Major Mcclure (End 3.6 cm Left Atrial ED 10 ml/m2 Left Atrial ED 13.5 ml/m2 Major Mcclure (End 4.5 cm Major Mcclure (End 3.9 cm Left Atrial ES 23.1 ml/m2 Left Atrial ES 17.2 ml/m2 Global Longitud 33.3 % Global Longitud 6.6 % HR 86 bpm HR 91 bpm SV 13.1 ml/m2 SV 3.7 ml/m2 LA Biplane CO 1.3 l/min Left Atrial ES 21.4 ml/m2 Left Atrial Eje 44.5 % Global Longitud 19.9 % Major Mcclure (End 3.6 cm HR 86 bpm Left Atrial ED 11.9 ml/m2 SV 9.5 ml/m2 Major Mcclure (End 4.5 cm Left Ventricle Left Ventricula 181 mmHg SV 22 ml/m2 MV Pk Arsen to LV 8.61 CO 2.4 l/min CO 2.8 l/min LVEF 51.9 % LVEF 51.8 % Left Ventricle 7.1 cm Left Ventricle 7 cm LVEDV 34 ml/m2 LVEDV 42.5 ml/m2 Left Ventricle 5.7 cm Left Ventricle 5.7 cm LVESV 16.3 ml/m2 LVESV 20.5 ml/m2 Global Longitud -21.3 % Global Longitud -19.6 % HR 91 bpm HR 86 bpm LV Mass 42.1 g/m2 LV Mass 41.3 g/m2 SV 17.6 ml/m2 LV Biplane CO 2.7 l/min LVESV 18.3 ml/m2 LVEF 52.3 % Global Longitud -20.5 % Left Ventricle 7.1 cm HR 86 bpm LVEDV 38.4 ml/m2 LV Mass 41.3 g/m2 Left Ventricle 5.7 cm SV 20.1 ml/m2 LV Triplane Global Longitud -20.5 % MV Antegrade Flow Mitral Valve A 1.71 MV E Decel time 102 millisecond MV E/A 0.59 PV Antegrade Flow Acceleration Sl 1046 cm/s2 Right Atrium CO 1.6 l/min Volume (Systole 19.2 ml/m2 Cardiac ejectio 59.7 % Global Longitud 36.7 % Major Mcclure (End 3.1 cm HR 91 bpm Volume (Diastol 7.7 ml/m2 SV 11.5 ml/m2 Major Mcclure (End 4.2 cm Right Ventricle Right Ventricul 17 centimeters per second Right Ventricul 15.6 % Right Ventricul 11.5 square centimeters per square meter Global Longitud -14.1 % Major Mcclure (End 7.3 cm Global Longitud -16.2 % Major Mcclure (End 6.3 cm Global Longitud -11.5 % Right Ventricul 9.7 square centimeters per square meter HR 91 bpm 2D LVPW LVPWd 1.11 cm Left Atrium LA a-p 3.35 cm (2.8-3.4) Major Mcclure (Sys 4.8 cm LA VOLBP 24.8 ml Major Mcclure (Sys 3.67 cm End Diastolic A 0.97 Diameter (Systo 2.23 cm/m2 Ratios IVS Ventricular Septum IVSd 1.21 cm Left Ventricle LVIDd 3.55 cm (4.3-5.1)+* Left Ventricle 6.63 cm LVIDs 2.15 cm (2-4)+ Left Ventricle 7.27 cm LV Area aguilera 18.9 cm2 Left Ventricle 5.5 cm LV EDV 0.3 ml Left Ventricle 6.09 cm LV Area aguilera 21.7 cm2 LV Mass 132 gram LV EDV 0.3 ml LVA% 40.9 % LV Area sys 11.2 cm2 LVA% 37.5 % LV ESV 0.1 ml Left Ventricle 0.63 LV Area sys 13.6 cm2 LV SV 24.4 ml LV ESV 0.2 ml LV SV 27.6 ml LV EF 55.2 % LV SV BP 27.3 ml LV EF 52.3 % LVEDV BP 50.5 ml LV EF BP 54.1 % LVESV BP 23.2 ml Aorta AO Dd 2.17 cm LA Single Plane Area (Systole) 14.9 cm2 Left Atrium Are 11.5 cm2 LV Area-Length Biplane LVEDV 0.3 ml/cm LVESV 0.1 ml/cm LV Area-Length Single Plane LVEDV 0.3 ml/cm LVESV 0.1 ml/cm LVEDV 0.4 ml/cm LVESV 0.2 ml/cm LVOT Cardiovascular 3.6 cm2 Cardiovascular 2.14 cm Right Atrium Major Mcclure (Sys 4.2 cm RA Single Plane Right Atrium Ar 9.44 cm2 Volume (Systole 11.7 ml/m2 Right Ventricle RVIDd 2.09 cm/m2 RVIDd 3.26 cm [id number] v 0.88 MMODE Tricuspid Valve Tricuspid annul 1.63 cm <Electronic Signature> 10/03/2024 05:00 PM Oscar Dang M.D. Procedure Note Oscar Dang MD - 10/03/2024 Echocardiography Report Pat.Name: NORMA IVERSON Pat.ID: [id number] .Date: 10/03/2024 Exam Time: 1:48:00 PM Study Type:ECHO WITH CARDIAC DOPPLER COMP Height: 61 in Weight: 117 lb BSA: 1.5 m2 Age: 4 1945,79Y Sex: F BP: 171/82 HR: 96 bpm Sonogrphr: Taylor Rosales Pat. Stat.:Inpatient Room: CDU03 Reason for Study:Hypertension urgency Procedures: 2D, M-mode, Doppler, Color Flow, Definity was used to enhance endocardial definition. Intraveneous saline contrast was used to help determine presence of intracardiac shunting. The study quality is technically difficult. Race: W ++++++++++++++++++++++++++++++++++++ SUMMARY: ++++++++++++++++++++++++++++++++++++ The left ventricular size is normal. The left ventricular systolic function is normal. Estimated left ventricular ejection fraction is 50-55%. Mild concentric left ventricular hypertrophy. Left ventricular diastolic function is abnormal (grade 1 - impaired relaxation). Wall motion appears normal in all segments. The left atrial volume is normal ( less than 34 ml/M2). Right atrial size is normal. The agitated saline injection showed no clear evidence of shunting into the left atrium, consistent with no patent foramen ovale. The atrial septum appears aneurysmal. Normal aortic root. No evidence of aortic valve stenosis. Mild to moderate aortic regurgitation. Trace mitral regurgitation. A trace of tricuspid regurgitation. Unable to reliably quantitate pulmonary systolic pressure. ++++++++++++++++++++++++++++++++++++ FINDINGS: ++++++++++++++++++++++++++++++++++++ LV: The left ventricular size is normal. The left ventricular systolic function is normal. Estimated left ventricular ejection fraction is 50-55%. Mild concentric left ventricular hypertrophy. Left ventricular diastolic function is abnormal (grade 1 - impaired relaxation). WM: Wall motion appears normal in all segments. RV: The right ventricular size is normal. Right ventricular systolic function is normal. IVS: No evidence of ventricular septal defect. LA: The left atrial size is normal. The left atrial volume is normal ( less than 34 ml/M2). RA: Right atrial size is normal. IAS: The agitated saline injection showed no clear evidence of shunting into the left atrium, consistent with no patent foramen ovale. The atrial septum appears aneurysmal. MAGNO: No evidence of pericardial effusion. AO: Normal aortic root. PA: Estimated right atrial pressure of 3 mmHg. Unable to reliably quantitate pulmonary systolic pressure. SVn: Inferior vena cava shows >50% collapse with respiration consistent with normal right atrial pressure. AV: The aortic valve is trileaflet. No evidence of aortic valve stenosis. Mild to moderate aortic regurgitation. MV: Trace mitral regurgitation. No evidence of mitral valve stenosis. PV: Trace pulmonic regurgitation. No evidence of pulmonic valve stenosis. TV: A trace of tricuspid regurgitation. No evidence of tricuspid valve stenosis. ++++++++++++++++++++++++++++++++++++ MEASUREMENTS: ++++++++++++++++++++++++++++++++++++ DOPPLER LVOT LVOTpkPG 4.9 mmHg LVOT SV 80 ml LVOT TVI 22.3 cm PSV 111 cm/s LVOTmnPG 2.8 mmHg AV Forward Flow AV TVI 25.2 cm AV pkPG 9.9 mmHg AV pkVel 157 cm/s (100-170) Area (TVI) 3.19 cm2 (3-5) AV mnPG 4.5 mmHg Area (Arsen) 2.55 cm2 (3-5)* MV Forward Flow MV pkE 58 cm/s (60-130)* MV pkA 99 cm/s PV Forward Flow PV pkVel 129 cm/s (60-90)+* PV AC 84 msec PV pkPG 6.7 mmHg TV Regurg Flow TV pkPG 4.2 mmHg TV pkVel 102 cm/s (30-70)* TV Forward Flow TV pkE 58 cm/s Lat E' Lat e 8.08 cm/s Lat E/E' Lat E/e 7.17 Med E' Med e 5.39 cm/s Med E/E' Med E/e 10.8 AV Antegrade Flow AV AC/ET 0.23 Ratio of LVOT M 0.71 AC 52 millisecond Ratio of LVOT V 0.885 AV ET 229 millisecond Left Atrium CO 1.7 l/min CO 0.5 l/min Left Atrial Eje 56.6 % Left Atrial Eje 21.6 % Major Mcclure (End 3.4 cm Major Mcclure (End 3.6 cm Left Atrial ED 10 ml/m2 Left Atrial ED 13.5 ml/m2 Major Mcclure (End 4.5 cm Major Mcclure (End 3.9 cm Left Atrial ES 23.1 ml/m2 Left Atrial ES 17.2 ml/m2 Global Longitud 33.3 % Global Longitud 6.6 % HR 86 bpm HR 91 bpm SV 13.1 ml/m2 SV 3.7 ml/m2 LA Biplane CO 1.3 l/min Left Atrial ES 21.4 ml/m2 Left Atrial Eje 44.5 % Global Longitud 19.9 % Major Mcclure (End 3.6 cm HR 86 bpm Left Atrial ED 11.9 ml/m2 SV 9.5 ml/m2 Major Mcclure (End 4.5 cm Left Ventricle Left Ventricula 181 mmHg SV 22 ml/m2 MV Pk Arsen to LV 8.61 CO 2.4 l/min CO 2.8 l/min LVEF 51.9 % LVEF 51.8 % Left Ventricle 7.1 cm Left Ventricle 7 cm LVEDV 34 ml/m2 LVEDV 42.5 ml/m2 Left Ventricle 5.7 cm Left Ventricle 5.7 cm LVESV 16.3 ml/m2 LVESV 20.5 ml/m2 Global Longitud -21.3 % Global Longitud -19.6 % HR 91 bpm HR 86 bpm LV Mass 42.1 g/m2 LV Mass 41.3 g/m2 SV 17.6 ml/m2 LV Biplane CO 2.7 l/min LVESV 18.3 ml/m2 LVEF 52.3 % Global Longitud -20.5 % Left Ventricle 7.1 cm HR 86 bpm LVEDV 38.4 ml/m2 LV Mass 41.3 g/m2 Left Ventricle 5.7 cm SV 20.1 ml/m2 LV Triplane Global Longitud -20.5 % MV Antegrade Flow Mitral Valve A 1.71 MV E Decel time 102 millisecond MV E/A 0.59 PV Antegrade Flow Acceleration Sl 1046 cm/s2 Right Atrium CO 1.6 l/min Volume (Systole 19.2 ml/m2 Cardiac ejectio 59.7 % Global Longitud 36.7 % Major Mcclure (End 3.1 cm HR 91 bpm Volume (Diastol 7.7 ml/m2 SV 11.5 ml/m2 Major Mcclure (End 4.2 cm Right Ventricle Right Ventricul 17 centimeters per second Right Ventricul 15.6 % Right Ventricul 11.5 square centimeters per square meter Global Longitud -14.1 % Major Mcclure (End 7.3 cm Global Longitud -16.2 % Major Mcclure (End 6.3 cm Global Longitud -11.5 % Right Ventricul 9.7 square centimeters per square meter HR 91 bpm 2D LVPW LVPWd 1.11 cm Left Atrium LA a-p 3.35 cm (2.8-3.4) Major Mcclure (Sys 4.8 cm LA VOLBP 24.8 ml Major Mcclure (Sys 3.67 cm End Diastolic A 0.97 Diameter (Systo 2.23 cm/m2 Ratios IVS Ventricular Septum IVSd 1.21 cm Left Ventricle LVIDd 3.55 cm (4.3-5.1)+* Left Ventricle 6.63 cm LVIDs 2.15 cm (2-4)+ Left Ventricle 7.27 cm LV Area aguilera 18.9 cm2 Left Ventricle 5.5 cm LV EDV 0.3 ml Left Ventricle 6.09 cm LV Area aguilera 21.7 cm2 LV Mass 132 gram LV EDV 0.3 ml LVA% 40.9 % LV Area sys 11.2 cm2 LVA% 37.5 % LV ESV 0.1 ml Left Ventricle 0.63 LV Area sys 13.6 cm2 LV SV 24.4 ml LV ESV 0.2 ml LV SV 27.6 ml LV EF 55.2 % LV SV BP 27.3 ml LV EF 52.3 % LVEDV BP 50.5 ml LV EF BP 54.1 % LVESV BP 23.2 ml Aorta AO Dd 2.17 cm LA Single Plane Area (Systole) 14.9 cm2 Left Atrium Are 11.5 cm2 LV Area-Length Biplane LVEDV 0.3 ml/cm LVESV 0.1 ml/cm LV Area-Length Single Plane LVEDV 0.3 ml/cm LVESV 0.1 ml/cm LVEDV 0.4 ml/cm LVESV 0.2 ml/cm LVOT Cardiovascular 3.6 cm2 Cardiovascular 2.14 cm Right Atrium Major Mcclure (Sys 4.2 cm RA Single Plane Right Atrium Ar 9.44 cm2 Volume (Systole 11.7 ml/m2 Right Ventricle RVIDd 2.09 cm/m2 RVIDd 3.26 cm Cpkag-aw-xgnf v 0.88 MMODE Tricuspid Valve Tricuspid annul 1.63 cm <Electronic Signature> 10/03/2024 05:00 PM Oscar Dang M.D. [facility] ECHO Final Res ult * (ABNORMAL) PRO-BRAIN NATRIURETIC PEPTIDE (10/03/2024 5:00 AM CDT) Pathologist [facility] PRO-B TYPE NATRIURETIC PEPTIDE 510(H) <450 PG/ML 10/03/2024 6:46 AM CDT [facility] Comment: CUT POINTS ESTABLISHED BY [employer] ON NT PROBNP (ICON) STUDY (2006). AGE INDEPENDENT: <300 PG/ML HAS A 99% NEGATIVE PREDICTIVE VALUE FOR EXCLUDING ACUTE CHF <50 YEARS: >450 PG/ML IS CONSISTENT WITH ACUTE CHF 50-75 YEARS: >900 PG/ML IS CONSISTENT WITH ACUTE CHF >75 YEARS: >1800 PG/ML IS CONSISTENT WITH ACUTE CHF IN PATIENTS WITH RENAL INSUFFICIENCY (GFR <60), >1200 PG/ML YIELDS A DIAGNOSTIC SENSITIVITY AND SPECIFICITY OF 89% AND 72% FOR ACUTE CHF. 10/03/2024 5:00 AM CDT [facility] LABORATORY Final Res ult [facility] [address] [place] [address], [place] [phone] * TROPONIN, QUANT (10/03/2024 5:00 AM CDT) Only the most recent of3 resultswithin the time period is included. Pathologist [facility] TROPONIN I HIGH SENSITIVITY 10 <54 ng/L 10/03/2024 5:39 AM CDT [facility] Comment: HIGH DOSES OF BIOTIN, TROPONIN-SPECIFIC AUTOANTIBODIES, AND ANTIBODY THERAPY CONTAINING HAMA MAY INTERFERE WITH THIS TEST RESULT. CORRELATION TO CLINICAL HISTORY AND PRESENTATION RECOMMENDED. 10/03/2024 5:00 AM CDT Augusta Humphrey MD LABORATORY Final Re sult [facility] [address] [place] [address], [place] [phone] * MAGNESIUM (10/03/2024 5:00 AM CDT) Only the most recent of2 resultswithin the time period is included. MAGNESIUM 2.1 1.8 - 2.4 MG/DL 10/03/2024 5:33 AM CDT [facility] 10/03/2024 5:00 AM CDT Augusta Humphrey MD LABORATORY Final Re sult Performing Organization Address [facility] Co de Phone Number [facility] [address] [place] [address], [place] [phone] * CTA CHEST FOR DISSECTION (10/02/2024 11:49 PM CDT) Anatomical Region Laterality Modality Chest Computed Tomogra phy 10/03/2024 2:36 AM CDT Impressions 10/03/2024 3:01 AM CDT IMPRESSION: 1. No evidence of pulmonary emboli. 2. Direct origin of the left vertebral artery from the aortic arch proximal to the origin of the left subclavian artery, a developmental variant. 3. Aorta is age-appropriate without aneurysm or dissection. 4. Borderline or mild cardiomegaly with no significant pericardial effusion. 5. Coronary artery calcifications. 6. Small hiatal hernia. 7. Atherosclerotic calcifications in the included upper abdominal aorta and origin and proximal bilateral renal arteries with mild to moderate narrowing in bilateral proximal renal arteries. 8. Partially included 1 cm benign-appearing cyst in the mid left kidney, for which no follow-up imaging is recommended. Referred By: Interpreted By: Tiffanie George MD, 10/03/2024 2:36 AM Narrative 10/03/2024 3:01 AM CDT [place] [id number] EXAMINATION: CTA Chest with Intravenous Contrast, Axial Imaging with Coronal and Sagittal 2-D and 3-D MIP reconstructions as well as 3-D Volume Rendered reconstructions, with 3-D images obtained on an independent work station. 100 mL Isovue-370 was administered intravenously for the post-contrast images. This CT exam was performed using one or more of the following dose reduction techniques: automated exposure control, adjustment of the mA and/or kV according to patient size, the use of iterative reconstruction technique, use of ALARA (As Low As Reasonably Achievable) and/or use of Image Gently techniques. INDICATION: Difference in blood pressure between the right and left arms, hypertension. COMPARISON: Portable AP chest x-ray 10/02/2024. FINDINGS: No evidence of pulmonary emboli. Direct origin of the left vertebral artery from the aortic arch proximal to the origin of the left subclavian artery, a developmental variant. The right vertebral artery is dominant, with no significant stenosis of the occluded bilateral subclavian or vertebral arteries or the other included proximal great vessels. Mild atherosclerotic calcifications in bilateral proximal subclavian arteries without significant stenosis. Aorta is age-appropriate without aneurysm or aortic dissection. The aortic root has a maximal diameter of approximately 3.3 x 3.1 cm at the level of the sinus of Valsalva. The proximal arm thoracic aorta at the level of the isthmus has a diameter of 2.4 x 2.4 cm, in the mid ascending thoracic aorta has a diameter of 2.6 x 2.9 cm and proximal descending thoracic aorta has a diameter of 2.2 x 2.4 cm. Mild calcifications in the aortic root and mild/moderate calcifications in the proximal main and proximal left anterior descending coronary arteries with calcifications near the origin of the right coronary artery. Borderline or mild cardiomegaly with no significant pericardial effusion. Thyroid gland appears unremarkable. No pathologic adenopathy is seen in the chest. Subpleural patchy atelectasis or less likely infiltrate anteriorly in the right upper lobe. Minimal atelectasis and/or scarring in the inferior lingula and posteriorly in bilateral lower lobes. No other significant parenchymal consolidation, pleural effusion or pneumothorax. There is a small hiatal hernia. Atherosclerotic calcifications in the included upper abdominal aorta and origin and proximal bilateral renal arteries, with mild to moderate narrowing in bilateral proximal renal arteries. Calcification at the origin of the celiac artery with mild less than 25% stenosis. No significant atherosclerosis or stenosis involving the included proximal superior mesenteric artery.. Partially included 1 cm benign-appearing cyst posterolaterally in the mid left kidney, for which no follow-up imaging is recommended. Bilateral adrenal glands, spleen, in the remaining partially included upper abdominal organs are otherwise unremarkable. No acute osseous abnormality. Procedure Note Tiffanie George MD - 10/03/2024 [place] [id number] EXAMINATION: CTA Chest with Intravenous Contrast, Axial Imaging withCoronal and Sagittal 2-D and 3-D MIP reconstructions as well as 3-D VolumeRendered reconstructions, with 3-D images obtained on an independent workstation. 100 mL Isovue-370 was administered intravenously for thepost-contrast images. This CT exam was performed using one or more of the following dosereduction techniques: automated exposure control, adjustment of the mAand/or kV according to patient size, the use of iterative reconstructiontechnique, use of ALARA (As Low As Reasonably Achievable) and/or use ofImage Gently techniques. INDICATION: Difference in blood pressure between the right and left arms,hypertension. COMPARISON: Portable AP chest x-ray 10/02/2024. FINDINGS: No evidence of pulmonary emboli. Direct origin of the left vertebralartery from the aortic arch proximal to the origin of the left subclavianartery, a developmental variant. The right vertebral artery is dominant,with no significant stenosis of the occluded bilateral subclavian orvertebral arteries or the other included proximal great vessels. Mildatherosclerotic calcifications in bilateral proximal subclavian arterieswithout significant stenosis. Aorta is age-appropriate without aneurysmor aortic dissection. The aortic root has a maximal diameter ofapproximately 3.3 x 3.1 cm at the level of the sinus of Valsalva. Theproximal arm thoracic aorta at the level of the isthmus has a diameter of2.4 x 2.4 cm, in the mid ascending thoracic aorta has a diameter of 2.6 x2.9 cm and proximal descending thoracic aorta has a diameter of 2.2 x 2.4cm. Mild calcifications in the aortic root and mild/moderatecalcifications in the proximal main and proximal left anterior descendingcoronary arteries with calcifications near the origin of the rightcoronary artery. Borderline or mild cardiomegaly with no significantpericardial effusion. Thyroid gland appears unremarkable. No pathologicadenopathy is seen in the chest. Subpleural patchy atelectasis or less likely infiltrate anteriorly in theright upper lobe. Minimal atelectasis and/or scarring in the inferiorlingula and posteriorly in bilateral lower lobes. No other significantparenchymal consolidation, pleural effusion or pneumothorax. There is asmall hiatal hernia. Atherosclerotic calcifications in the included upperabdominal aorta and origin and proximal bilateral renal arteries, withmild to moderate narrowing in bilateral proximal renal arteries.Calcification at the origin of the celiac artery with mild less than 25%stenosis. No significant atherosclerosis or stenosis involving theincluded proximal superior mesenteric artery.. Partially included 1 cmbenign-appearing cyst posterolaterally in the mid left kidney, for whichno follow-up imaging is recommended. Bilateral adrenal glands, spleen, inthe remaining partially included upper abdominal organs are otherwiseunremarkable. No acute osseous abnormality. IMPRESSION: 1. No evidence of pulmonary emboli. 2. Direct origin of the left vertebral artery from the aortic archproximal to the origin of the left subclavian artery, a developmentalvariant. 3. Aorta is age-appropriate without aneurysm or dissection. 4. Borderline or mild cardiomegaly with no significant pericardialeffusion. 5. Coronary artery calcifications. 6. Small hiatal hernia. 7. Atherosclerotic calcifications in the included upper abdominal aortaand origin and proximal bilateral renal arteries with mild to moderatenarrowing in bilateral proximal renal arteries. 8. Partially included 1 cm benign-appearing cyst in the mid left kidney,for which no follow-up imaging is recommended. Referred By: Interpreted By: Tiffanie George MD, 10/03/2024 2:36 AM us Augusta Humphrey MD CT Final Re sult * ECG 12 lead (10/02/2024 4:32 PM CDT) 10/02/2024 4:32 PM CDT [facility]ative [facility] - 10/03/2024 9:14 AM CDT [place] Test Date: 2024-10-02 Pat Name: NORMA IVERSON Department: 41 Room: C03 Gender: Female Inspector Poising: [id number] : 1945 Requested By: CAT ZACARIAS Order Number: [id number] Reading MD: Binta Stout Measurements Intervals Mcclure Rate: 65 P: 34 UT: 179 QRS: 16 QRSD: 94 T: 31 QT: 403 QTc: 421 Interpretive Statements SINUS RHYTHM No previous ECG available for comparison Procedure Note Binta Stout MD - 10/03/[address]24 [facility] [address] Test Date: 2024-10-02 Pat Name: NORMA IVERSON Department: 41 Room: C03 Gender: Female Inspector Poising: [id number] : 1945 Requested By: CAT ZACARIAS Order Number: [id number] Reading MD: Binta Stout Measurements Intervals Mcclure Rate: 65 P: 34 UT: 179 QRS: 16 QRSD: 94 T: 31 QT: 403 QTc: 421 Interpretive Statements SINUS RHYTHM No previous ECG available for comparison us Cat HARPER ECG ORDERABLES Final Result [facility] (DIMITRY) RAD * XR CHEST PORTABLE (10/02/2024 2:48 PM CDT) Anatomical Region Laterality Modality Chest Radiographic Pattie ging 10/02/2024 2:48 PM CDT Impressions 10/02/2024 2:51 PM CDT IMPRESSION: 1. No acute pulmonary infiltrate or consolidation. 2. Heart size towards upper limits normal. No acute pulmonary vascular congestion. Ordered By: CAT ZACARIAS Interpreted By: Yrn Antunez, 10/02/2024 2:48 PM Narrative 10/02/2024 2:51 PM CDT [address] [address] IMAGING STUDIES: XR CHEST PORTABLE DATE: 10/02/2024 2:37 PM HISTORY: sob 79-year-old female. Hypertension. Patient reports being compliant with her hypertensive medications. Dizziness. No chest pain. COMPARISON: None at this institution. DISCUSSION: Portable AP upright view of the chest. Heart size is towards upper limits normal. No acute pulmonary vascular congestion. No acute pulmonary infiltrate, pulmonary consolidation, pleural effusion, or pneumothorax. Spinal degenerative changes. Procedure Note Yrn Antunez MD - 10/02/2024 [facility] [address] [place], [place] [address] IMAGING STUDIES: XR CHEST PORTABLEDATE: 10/02/2024 2:37 PM HISTORY: sob 79-year-old female. Hypertension. Patient reports beingcompliant with her hypertensive medications. Dizziness. No chest pain. COMPARISON: None at this institution. DISCUSSION: Portable AP upright view of the chest. Heart size is towards upper limits normal. No acute pulmonary vascularcongestion. No acute pulmonary infiltrate, pulmonary consolidation, pleural effusion,or pneumothorax. Spinal degenerative changes. IMPRESSION: 1. No acute pulmonary infiltrate or consolidation. 2. Heart size towards upper limits normal. No acute pulmonary vascularcongestion. Ordered By: CAT ZACARIAS Interpreted By: Yrn Antunez, 10/02/2024 2:48 PM us Cat Zacarias PA GENERAL IMAGING Final Result from Last 3 Months Insurance [employer] Advance Directives * Full Code (Latest Code Status on File) Date Activated Date Inactivated Comments 10/02/2024 9:22 PM 10/06/2024 2:33 PM Care Teams Manager Product Management Relationship Specialty Start Date End Date Floresita White DO [address] [place] [address] PCP - General FAMILY PRACTICE 08/29/24
[2024-11-01 12:09] LABS: Anion Gap 11 mmol/L (4-12); Blood Urea Nitrogen 22 mg/dL (7-17); Calcium 8.9 mg/dL (8.4-10.2); Carbon Dioxide 22 mmol/L (22-30); Chloride 106 mmol/L (98-107); Estimated Glomerular Filt Rate 41; Glucose 100 mg/dL (65-110); Potassium 4.1 mmol/L (3.4-5.0); Sodium 139 mmol/L (137-145)
[2024-11-01 12:44] LABS: Ferritin 55.80 ng/mL (11.1-264)
== END 2024-11-01 11:01 | disposition home or self-care (01) ==
PROVIDERS: PCP Family Medicine; Visit Provider Family Medicine
DX: I50.20 Unspecified systolic (congestive) heart failure (principal)
CPT/HCPCS: 36415; 80048; 82728; 85025

== ENCOUNTER 2024-11-10 07:15 | Outpatient (CLI) | payer OTHER, SELFPAY ==
--- NOTE | ~2024-11-10 | NM_ITS ---
EXAMINATION: NM vinay stress w perfusion DATE: 11/10/2024 10:00 INDICATION: Persistent dyspnea and dizziness TECHNIQUE: Rest images were obtained following intravenous administration of 11.6 mCi Tc99m tetrofosmin (Myoview). The patient was infused intravenously with Lexiscan (Regadenoson). Then, 34.6 mCi Tc99m tetrofosmin (Myoview) was administered intravenously, and stress images were obtained, initially in the supine position with repeat post stress imaging obtained in the prone position. Data was reconstructed into short axis and horizontal and vertical long axis SPECT images. Gated SPECT images were also obtained. COMPARISON: None. FINDINGS: Small mild reversible perfusion defects consistent with ischemia seen on the post stress imaging in both the supine and prone positions at the apical inferior segment and at the mid anterior segment. No nonreversible perfusion defects to suggest infarct. There is normal left ventricular chamber size, wall motion and ejection fraction. Left ventricular ejection fraction measures 63%. IMPRESSION: 1. Small regions of mild reversible ischemia at the apical inferior and mid anterior segments.. 2. Left ventricular ejection fraction measuring 63%. Reviewed, dictated and finalized at location A. IMPRESSION: 1. Small regions of mild reversible ischemia at the apical inferior and mid ant erior segments.. 2. Left ventricular ejection fraction measuring 63%.
--- NOTE | 2024-11-10 08:01 | EST_ITS ---
Patient Info Name: Tuyet Iverson Age: 79 years : 1945 Gender: Female Ht: 61 in Wt: 116 lbs BSA: 1.51 m2 Exam Date: 11/10/2024 8:01 AM Patient Status: unknown Admit Date: 11/10/2024 Exam Type: CA stress vinay w NM Staff Referring Physician: Floresita White Attending Provider: Floresita White Summary 1. 1. Negative lexiscan stress test for ischemic ST changes by ECG criteria. 2. 2. Stable hemodynamics throughout the test. 3. 3. Nuclear scan to follow and will be reported separately. Please correlate with it. 4. 4. Patient informed of the above results. Protocol: Lexiscan Stress ECG Details Stage: REST Duration (min): 1 min : 58 sec HR (bpm): 59 SBP (mmHg): --- DBP (mmHg): --- Stage: REST Duration (min): 7 min : 14 sec HR (bpm): 62 SBP (mmHg): --- DBP (mmHg): --- Stage: STAGE 1 Duration (min): 1 min : 0 sec HR (bpm): 103 SBP (mmHg): 154 DBP (mmHg): 83 Stage: RECOVERY Duration (min): 1 min : 0 sec HR (bpm): 98 SBP (mmHg): 154 DBP (mmHg): 83 Stage: RECOVERY Duration (min): 2 min : 0 sec HR (bpm): 92 SBP (mmHg): 154 DBP (mmHg): 83 Stage: RECOVERY Duration (min): 3 min : 0 sec HR (bpm): 88 SBP (mmHg): 154 DBP (mmHg): 83 Stage: RECOVERY Duration (min): 4 min : 0 sec HR (bpm): 85 SBP (mmHg): 176 DBP (mmHg): 63 Stage: RECOVERY Duration (min): 5 min : 0 sec HR (bpm): 81 SBP (mmHg): 177 DBP (mmHg): 65 Stage: RECOVERY Duration (min): 5 min : 3 sec HR (bpm): 81 SBP (mmHg): 177 DBP (mmHg): 65 Rest HR: 62 bpm Peak HR: 103 bpm Peak Sys BP: 177 mmHg Max Pred HR: 140 bpm % Max Pred HR: 74 % Target HR: 119 bpm Max RPP: 18,231 bpm*mmHg Termination Reason: Completed protocol Cardiac Symptoms: Shortness of breath Total Time: 1 min : 0 sec Peak [place] BP: 65 mmHg Total Dose: 0.4 mg Resting ECG Sinus rhythm. Stress ECG No ST changes. Arrhythmias None. Report Signatures
== END 2024-11-10 07:16 | disposition home or self-care (01) ==
PROVIDERS: PCP Family Medicine; Visit Provider Family Medicine
DX: I50.20 Unspecified systolic (congestive) heart failure (principal); I67.82 Cerebral ischemia
CPT/HCPCS: 78452; 93017; A9502; J2785

== ENCOUNTER 2024-12-07 00:20 | Day surgery (SDC) | payer OTHER, SELFPAY ==
[2024-12-06 10:19] VITALS: BMI 21.5
[2024-12-07] VITALS (27 sets, daily range): BP systolic 107–151; BP diastolic 48–93; PULSE 61–83; RESP 12–20; O2SAT 96–100; BMI 22.1
--- OUTSIDE RECORDS SUMMARY | 2024-12-07 00:23 | XMS_ITS | Clinical Summary ---
Author Organization [facility] Address [address] [place] [address] Care Team Providers Care Bowl Sander Name Role Phone Fernando Patino MD Primary [...] calcification. Assessment & Plan (04/10/2020 6:22 PM PROCESSING TALC AND BORATE SUPERVISOR): Hypertension has apparently required treatment only for [...] time. Assessment & Plan (04/10/2020 6:23 PM PROCESSING TALC AND BORATE SUPERVISOR): Will begin rosuvastatin 5 mg q.h.s.. Suggested that she take Co Q10 with that. Coronary artery calcification seen on CT scan Assessment & Plan (05/14/2020 6:51 PM CDT): Stress echo to rule out myocardial ischemia. Risk factor modification. Assessment & Plan (04/10/2020 6:23 PM PROCESSING TALC AND BORATE SUPERVISOR): She has no symptoms suggesting myocardial ischemia [...] Doppler. Assessment & Plan (04/10/2020 6:22 PM PROCESSING TALC AND BORATE SUPERVISOR): Lungs sound clear. This may be hypertension related. It may also be deconditioning as she has been less active recently. Echo Doppler and stress echo once blood pressure is controlled. Encounters Date Type Department Care Team Description 11/20/2024 Telephone [facility] Medical [facility] Cardiology at [address] [place] [address] Gold Small MD from Last 3 Months Medical History Medical History Date Comments Hypertension [...] on file Legal Sex Female 10:11 AM PROCESSING TALC AND BORATE SUPERVISOR Gender Identity Not on file Sexual Orientation Zheng 04/03/2020 9: 57 AM PROCESSING TALC AND BORATE SUPERVISOR Obstetrics History Last Filed Vital Signs Vital [...] Plan of Treatment Not on file Insurance [facility] Member Subscriber Plan / Payer ( fective 2018-Present) Name:Tyuet Iverson Relation to Subscriber:Self Name:Iverson, Tuyet Tomas Payer ID:[id number] ([facility] Type:MEDICARE RISK OTHER Address: [address] [address] [facility] Member Subscriber Plan / Payer ( fective 2018-Present) Name:Tuyet Iverson Relation to Subscriber:Self Name:Tuyet Iverson Payer ID:[id number] ([facility]) Type:MEDICARE RISK OTHER Address: [address] [place] [facility] Care Teams Bowl Sander Relationship Specialty Start Date End Date Fernando Patino MD PCP - General Family Medicine 03/19/20
--- OUTSIDE RECORDS SUMMARY | 2024-12-07 00:24 | XMS_ITS | Encounter Summary ---
Author Organization [facility] Address [facility] [place] [address] Care Team Providers Care Program Counselor Name Role Phone WhiteFloresita Primary Care Provider [phone] Encounter Details Date Type Department Care Team (Late st Contact Info) Description 10/17/2024 Results Follow-Up [facility] Medical [facility] Multispecialty Care - [address], [address] [place] [address] Callie Fritz MD [address] [place], [place] [id number] TSH W/REFLEX, VITAMIN B12 / FOLATE Social [...] from your doctor or pharmacy? Sometimes 10/02/2024 [facility] Utilities Answer Date Recorded In the [...] or ex-partner? No 10/02/2024 Social Connection and Isolation Panel Answer Date Recorded In a typical week, how many times do you talk on the phone with family, friends, or neighbors? Three times a week 10/02/2024 How often do you get togethe r with friends or relatives? Twice a week 10/02/2024 How often do you attend chur or zoroastrianism services? Never 10/02/2024 Do you belong to any clubs o r organizations such as alevism groups, unions, fraternal or athletic groups, or [...] Recorded Patient Health Questionnaire-2 Score 0 08/29/2024 [facility] [place] [facility]ational Stress Questionnaire Answer [...] any time in the past 12 m [facility], were you homeless or living in a assisted (including now)? No 10/02/2024 Comments No Sex [...] Description 10/18/2025 10:40 AM CDT Office Visit [facility] Medical Group Multispecialty Care - [facility] [address] [facility], [address] [place] [address] Callie Fritz MD [address] [place] [address] documented as of this encounter Visit Diagnoses Not on filedocumented in this encounter Care Teams Program Counselor Relationship Specialty Start Date End Date Floresita White DO [address] [place] [address] PCP - General FAMILY PRACTICE 08/29/24 documented as of this encounter
--- OUTSIDE RECORDS SUMMARY | 2024-12-07 00:24 | XMS_ITS | Data Portability ---
Author Organization [facility] Address [address] [place] [address] Care Team Providers Care [employer] Dean Name Role Phone CHAPMAN, NAIF Primary Care Provider Assessment Encounter Date Assessment [...] recorded. Imaging MAMMO, screening, bilateral 2021 022 [facility], [address], [place], [address], 17:04:47 Medication Orders None recorded. Patient TargetsNo targets recorded. Patient InstructionsNo instructions recorded. Reason for Referral None Reported. Problems Name Problem SNOMED Code Status Onset Date Resolution Date Notes Provider Name and Address Organization Details Recorded Time Screenin g for malignan t neoplasm of cervix Completed 201305/28/2021 Screening for malignant neoplasms of the cervix;Re corded Elsewhere : No Locati on: [facility] So urce: EHR Chron ic: N Practic e ID: [id number] Bill able Time: 10:00:00 AM Germaine Lim [facility] 2 18:13:22 Proteinu izabela [id number] Completed 201305/28/2021 Proteinur ia;Record ed Elsewhere : No Locati on: [facility] So urce: EHR Chron ic: N Practic e ID: [id number] Bill able Time: 10:00:00 AM Germaine Lim [facility] 2 18:13:22 Osteopor osis [id number] Completed 201305/28/2021 Osteoporo sis;Recor ded Elsewhere : No Locati on: [facility] So urce: EHR Chron ic: N Practic e ID: [id number] Bill able Time: 12:00:00 PM Germaine Lim [facility] 2 18:13:22 Adult health examinat ion Completed 201405/28/2021 ROUTINE MEDICAL EXAM;Arcadio rded Elsewhere : No Locati on: [facility] So urce: EHR Chron ic: N Practic e ID: [id number] Bill able Time: 01:30:00 PM Germaine Lim [facility] 2 18:13:22 Microsco pic hematuri a [id number] Completed 201405/28/2021 MICROSCOP IC HEMATURIA ;Recorded Elsewhere : No Locati on: [facility] So urce: EHR Chron ic: N Practic e ID: [id number] Bill able Time: 01:30:00 PM Germaine Lim [facility] 2 18:13:22 Insomnia [id number] Completed 201405/28/2021 Insomnia; Recorded Elsewhere : No Locati on: [facility] So urce: EHR Chron ic: N Practic e ID: [id number] Bill able Time: 01:30:00 PM Germaine Lim [facility] 2 18:13:22 Speciali zed medical examinat ion Completed 201405/28/2021 Gynecolog ical Examinati on;Record ed Elsewhere : No Locati on: [facility] So urce: EHR Chron ic: N Practic e ID: [id number] Bill able Time: 01:30:00 PM Germaine Lim [facility] 2 18:13:22 Mammogra phy abnormal [id number] Completed 201405/28/2021 Unspecifi ed abnormal mammogram ;Recorded Elsewhere : No Locati on: [facility] So urce: EHR Chron ic: N Practic e ID: [id number] Bill able Time: 01:59:14 PM Germaine Lim [facility] 2 18:13:22 Evaluati on finding Completed 201505/28/2021 Oth abn and inconclus brendon findings on dx imaging of breast;Re corded Elsewhere : No Locati on: [facility] So urce: EHR Chron ic: N Practic e ID: [id number] Bill able Time: 11:59:26 AM Germaine Lim [facility] 2 18:13:22 Screenin g for malignan t neoplasm of rectum Completed 201505/28/2021 Encounter for screening for malignant neoplasm of rectum;Re corded Elsewhere : No Locati on: [facility] So urce: EHR Chron ic: N Practic e ID: [id number] Bill able Time: 01:30:00 PM Germaine Lim [facility] [address] 18:13:[address] Concept Completed 201505/28/2021 Encntr for general adult medical exam w/o abnormal findings; Recorded Elsewhere : No Locati on: [facility] So urce: EHR Chron ic: N Practic e ID: [id number] Bill able Time: 01:30:00 PM Germaine Lim [facility] [address] 18:13:[address] Concept Completed 201505/28/2021 Encntr for community relations rep exam (general) (routine) w/o abn findings; Recorded Elsewhere : No Locati on: [facility] So urce: EHR Chron ic: N Practic e ID: [id number] Chris able Time: 01:30:00 PM [facility] 18:13:22 Problem Notes None recorded. Procedures Surgical History Date Name Laterality Status Provider Name and Address Organization Details Recorded Time 6 Date of Last Mammogram completed [facility] 05/29/2021 10:14:20 hammer toe operation completed [facility] 05/28/2021 21:20:01 Imaging Results None recorded. [...] Prescrib ed Elsewher e: Yes [facility] odify By: deborah muñoz DateTime : 06/02/19 [...] ed Elsewher e: No Locat ion: [facility] odify By: deborah faustiner DateTime : 07/27/19 15 01:30:00 PM Not Available Not Available Not Available lorazepam 2 mg tablet take 1 tablet (2MG) by oral route 3 times every day as needed 10/08 completed Prescrib ed Elsewher e: Yes [facility] By: deborah Thorpe ncounter DateTime : [...] Prescrib ed Elsewher e: No Locat ion: [facility] odify By: deborah Thorpe ncounter DateTime : [...] Prescrib jose Martinez e: No [facility] By: andrea langford DateTime : [...] Body mass index (BMI) Body weight Systolic And Diastolic Provider Name and Address Organization Details Last Updated DateTime 05/29/2021 152.4 cm 23 kg/m2 54725.9 g 130/78 mm[Hg] Germaine [facility] 05/29/2021 10:28:36 Social History Question Answer Notes LastModified by Organizat ion Details LastModified Time Tobacco Smoking Status Never Smoker Germaine [facility] 05/28/2021 20:48:04 Are You Blind Or Do You Have Difficulty Seeing? No Information not available 05/28/2021 What Is Your Level Of Caffeine Consumption? Occasional Information not available 05/28/2021 Are You Deaf Or Do You Have Serious Difficulty Hearing? No Information not available 05/28/2021 What Type Of Diet Are You Following? REGULAR Information not available 05/28/2021 What Is The Highest Grade Or Level Of School You Have Completed Or The Highest Degree You Have Received? [id number] Information not available 05/28/2021 Do You Use Your Seat Belt Or Car Seat Routinely? Yes Information not available 05/28/2021 Do You Have Smoke And Carbon Monoxide Detectors In Your Home? Yes Information not available 05/28/2021 Do You Use Sunscreen Routinely? Yes Information not available 05/28/2021 Do You Have Difficulty Walking Or Climbing Stairs? No Information not available 05/28/2021 Sex: Unknown Functional Status Question Answer Note LastModified by Organizat ion Details LastModified Time Do you use any illicit or recreational drugs? No Information not available 05/28/2021 What is your level of alcohol consumption? Occasional Information not available 05/28/2021 Are you currently employed? No Information not available 05/28/2021 Are you able to walk independently without assistance or assistive devices? YESWOREST Information not available 05/28/2021 Are you able to care for yourself independently? Yes Information not available 05/28/2021 Do you have difficulty dressing, bathing, grooming, or toileting? No Information not available 05/28/2021 What is your exercise level? Occasional Information not available 05/28/2021 Mental Status Question Answer Note LastModified by Organization D etails LastModified Time Do you feel stressed (tense, restless, nervous, or anxious, or unable to sleep at night)? [id number] Information not available 05/28/2021 Family History Relationship Description Onset Age of this Age Resolved Age Notes LastModified by Organization Details LastModified Time Father Hyperlipidem ia Not available 2021 21:22:51 Father Myocardial infarction Not available 05/28 21:23:03 Father Hypertensive disorder Not available 2021 21:23:47 Mother Hypertensive disorder Not available 2021 21:23:47 Daughter Malignant neoplasm of breast Not available 2021 10:30:41 Medical [...] Diagnosis SNOMED-CT Code Diagnosis ICD10 Code Diagnosis IMO Codes Diagnosis Note [id number] Camille Butts [facility] [address] [address] 05/29/2021 09:30:52 05/29/2021 10:46:54 Gynecologic examination 47010633 Z01.419 Take Calcium with Vitamin D 12-1500mg daily. Do monthly self breast exams. It is advised to get annual flu shot in the fall and she could obtain at [facility]. If you haven't received the Tdap vaccine [...] the routine screenings . Screening mammography 24 338901 Z12.31 [id number] Camille Butts [facility] [address] [address] 06/03/2022 15:02:57 06/21/2022 19:33:04 Gynecologic examination 57077980 Z01.419 Take Calcium with Vitamin D 12-1500mg daily. Do monthly self breast exams. It is advised to get annual flu shot in the fall and she could obtain at [facility] or [facility]. If you haven't received the Tdap [...] Recorded Advance Directives Directive None Recorded Payers Insurance Date Sequence Insurance Name Policy Number Policy Christopher Covered Member ID Christopher Member ID Guarantor Name 08/30/2023 1 [facility] (MEDICARE REPLACEMENT HMO) [id number] Tuyet Iverson [id number] Tuyet Iverson Notes Date Note Type Note Provider Name and Address Organization Details Recorded Time 2 text/html Annual Cutter Inspector Post-MenopausalReported by PatientGenitourinary symptomsFor menopausal symptoms, patient reportsno menopausal symptomsandnormal vaginal lubrication. For vaginal bleeding, patient reportshistory of menopause having occurredandno history of post menopausal bleeding. For urinary symptoms, patient reportsno hematuria,no incontinence,no nocturia, andno urinary frequency. For vulva, patient reportsno genital lesionandno vulvar atrophy. For vagina, patient reportsnormal vaginal dischargeandno vaginal atrophy.Breast symptomsFor breast, patient reportsno breast lump,no nipple discharge, andno breast pain.Psychological symptomsFor sexual complaints, patient reportsno sexual complaints. For psychological symptoms, patient reportsno depressionandno anxiety.Preventative measuresFor preventive measures, patient reportsencourage regular mammograms starting age 40,encourage self breast examination,encourage regular exercise,encourage no tobacco use,needs to schedule mammogram,history of recent colonoscopy, andneeds to schedule bone density (pcp manages.). Camille Butts [facility] [address], [place], [address], [facility] 05/29/2021 10:45:54 3 text/html Annual Cutter Inspector Post-MenopausalReported by PatientGenitourinary symptomsFor menopausal symptoms, patient reportsno menopausal symptomsandnormal vaginal lubrication. For vaginal bleeding, patient reportshistory of menopause having occurredandno history of post menopausal bleeding. For urinary symptoms, patient reportsno hematuria,no incontinence,no nocturia, andno urinary frequency. For vulva, patient reportsno genital lesionandno vulvar atrophy. For vagina, patient reportsnormal vaginal dischargeandno vaginal atrophy.Breast symptomsFor breast, patient reportsno breast lump,no nipple discharge, andno breast pain.Psychological symptomsFor sexual complaints, patient reportsno sexual complaints. For psychological symptoms, patient reportsno depressionandno anxiety.Preventative measuresFor preventive measures, patient reportsencourage regular mammograms starting age 40,encourage self breast examination,encourage regular exercise,encourage no tobacco use,mammogram performed within the past year, andhistory of recent colonoscopy. Camille Butts [facility] [address], [place], [address], [facility] 06/21/2022 19:33:01 OBGyn Episode Ob Episode Information Episode Created Date Number of Fetuses Patient Bloodtype Patient rh Status Prepregnancy Weight lbs Domestic Partner Domestic Partner Phone Father Name Compound Filler Status 05/30/19 22 1 CLOSED Fetus Data First Name Last Name Admitted to NICU Weight (g) Sex Living Outcome Pediatric Complications Fetus ID Race Codes Race Delivery Type F [id number] Vaginal Delivery Alexey Calculation Initial Alexey Date [...] Domestic Partner Domestic Partner Phone Father Name Compound Filler Status 05/30/19 22 1 CLOSED Fetus Data First Name Last Name Admitted to NICU Weight (g) Sex Living Outcome Pediatric Complications Fetus ID Race Codes Race Delivery Type M [id number] Vaginal Delivery Alexey Calculation Initial Alexey Date [...]
--- OUTSIDE RECORDS SUMMARY | 2024-12-07 00:24 | XMS_ITS | Clinical Summary ---
Author Organization [facility] Address Counts include 234 beds at the [facility] [place] [address] Care Team Providers Care Final Operations Technician Name Role Phone Floresita White DO Primary Care Provider [phone] Allergies Active Allergy Reactions Criticality Noted Date [...] mg total) by mouth daily. 30 tablet 5 Active losartan (COZAAR) 50 MG tablet Take 1 tablet (50 mg total) by mouth daily. 30 tablet 5 Active Active Problems Problem Noted Date Diagnosed Date Hypertensive urgency 10/02/2024 Coronary artery calcification seen on CT scan Dyspnea on exertion 04/09/2020 Hypertension, essential 04/09/2020 Pure hypercholesterolemia 04/09/2020 Abnormal mammogram 08/13/2014 Overview (10/02/2024): Unspecified abnormal mammogram;Recorded Elsewhere: No Location: [facility] Source: EHR Chronic: N Practice ID: [id number] Billable Time: 01:59:14 PM Insomnia 07/26/2014 Overview (10/02/2024): Insomnia;Recorded Elsewhere: No Location: [facility] Source: EHR Chronic: N Practice ID: [id number] Billable Time: 01:30:00 PM Microscopic hematuria 07/26/2014 Overview (10/02/2024): MICROSCOPIC HEMATURIA;Recorded Elsewhere: No Location: [facility] Source: EHR Chronic: N Practice ID: [id number] Billable Time: 01:30:00 PM Osteopenia 10/10/2013 Overview (10/02/2024): Osteoporosis;Recorded Elsewhere: No Location: [facility] Source: EHR Chronic: N Practice ID: [id number] Billable Time: 12:00:00 PM Proteinuria 06/01/2013 Overview (10/02/2024): Proteinuria;Recorded Elsewhere: No Location: [facility] Source: EHR Chronic: N Practice ID: [id number] Billable Time: 10:00:00 AM Encounters Date Type Department Care Team Description 10/17/2024 12:15 PM CDT - 10/17/2024 11:59 PM CDT Hospital Encounter [facility] [place] [address] Callie Fritz MD Discharge Disposition: Home or Self Care (Routine Discharge) 10/17/2024 11:20 AM CDT Office Visit [facility] [address] [facility], [address] [place] [phone] Callie Fritz MD Follow Up 10/17/2024 Results Follow-Up [facility] [address] [facility], [address] [place] [address] Callie Fritz MD TSH W/REFLEX, VITAMIN B12 / FOLATE 10/17/2024 Travel 10/06/2024 Telephone [facility] [address] [facility], [address] [place] [phone] Callie Fritz MD Appointment Request 10/02/2024 4:12 PM CDT - 10/06/2024 12:33 PM CDT Hospital Encounter [facility] [place] [address] Tara Bocanegra MD Jerkovich, Adria, MD Malcolm, MD Clifford Haines, Brunilda Corona, SOO Hypertension Discharge Disposition: Home or Self Care (Routine Discharge) 10/02/2024 1:40 PM CDT [facility] [place] - [address], [address] [place] [phone] Callie Fritz MD Follow Up (Hyperreflexia) 10/02/2024 Travel from Last 3 Months Immunizations Immunization Administration Dates Next Due Arexvy Respiratory Syncytial Virus (RSV, adjuvanted) 0.5 mL, PF 12/04/2022 Fluzone High Dose - >Age 65 (Prefilled Syringe) 12/04/2022,11/11/2021,11/22/2020,2019 Influenza (Generic) 11/24/2012 PFIZER COVID-19 (SCHULTE CAP), MRNA, LNP-S, PF, 30 MCG/0.3 ML TAWANNA-SUCROSE, IM 12/04/2022 PFIZER COVID-19 (ORIGINAL FORMULATION, PURPLE CAP) mRNA, LNP-S, PF, 30 MCG/0.3 ML DOSE 11/11/2021,06/24/2021 Zoster (Zostavax) [address]21 Unt/0.65Ml 04/04/2018 Family History Medical History Relation [...] from your doctor or pharmacy? Sometimes 10/02/2024 [facility] Utilities Answer Date Recorded In the past [...] week 10/02/2024 How often do you attend [facility] or gnosticist services? Never 10/02/2024 Do you belong to any clubs o r organizations such as faith groups, unions, fraternal or athletic groups, or [...] Recorded Patient Health Questionnaire-2 Score 0 08/29/2024 [facility] - Occupational Stress [...] any time in the past 12 [address] [place], were you homeless or living in a nursing home (including now)? No 10/02/2024 Comments No Sex [...] Description 10/18/2025 10:40 AM CDT Office Visit [facility] - [facility] [address] [facility], [address] [place] [phone] Callie Fritz MD [address] [place] [address] Health Maintenance Due Date Last Done Comments DTaP, Tdap and Td Vaccines (1 - Tdap) 06/06/1964 Pneumococcal Vaccine: 50+ Years (1 of 2 - PCV) 06/06/1964 Annual Medicare Wellness Visit 2009 Dexa Scan (General) 2009 Zoster Vaccines (2 of 3) 05/30/2018 04/04/2018 COVID-19 Vaccine ( season) 2024 12/04/2022, 12/04/2022, 11/11/2021, Additional history exists Influenza Adult (#1) 2024 12/04/2022, 11/11/2021, 11/22/2020, Additional history exists RSV Immunization or 60+ Years Completed 12/04/2022 PHQ-2 (Physician [place]) Completed 08/29/2024 Meningococcal B Vaccine Aged Out [...] FOLATE Routine 10/17/2024 12:18 PM CDT Myelopathy ([facility]) TSH W/REFLEX Routine 10/17/2024 12:18 PM CDT Myelopathy ([facility]) Disorder of muscle, unspecified BASIC [...] B12 / FOLATE (10/17/2024 12:18 PM CDT) VITAMIN B12 S/P/B 457 254 - 1,320 PG/ML 10/17/2024 1:[address] [facility] FOLATE 17.5 3.1 - 17.5 NG/ML 10/17/2024 1:[address] [facility] 10/17/2024 12:1 8 PM CDT Callie Fritz MD LABORATORY Final Re sult Performing Organization Address City/[facility]/ZIP Co de Phone Number [facility] [address] [place] [address], [place] [phone] * TSH W/REFLEX (10/17/2024 12:18 PM CDT) TSH 1.960 0.358 - 3.74 uIU/ML 10/17/2024 1:[address] [facility] Comment: HIGH DOSES OF BIOTIN MAY INTERFERE WITH THIS TEST RESULT. CORRELATION TO CLINICAL HISTORY AND PRESENTATION RECOMMENDED. FREE T4 NOT INDICATED 10/17/2024 12:1 8 PM CDT us Callie Fritz MD LABORATORY Final Re sult Performing Organization Address City/[facility]/ZIP Co de Phone Number [facility] [address] [place] [address], [place] [phone] * (ABNORMAL) BASIC METABOLIC PANEL (10/06/2024 5:58 AM CDT) Only the most recent of3 resultswithin the time period is included. [facility] GLUCOSE 91 70 - 99 MG/DL 10/06/2024 11:03 AM [facility] BUN 31(H) 7 - 18 MG/DL 10/06/2024 11:03 AM [facility] CREATININE S/P/B 0.99 0.55 - 1.02 MG/DL 10/06/2024 11:[address] [facility] SODIUM S/P/B 140 136 - 145 MMOL/L 10/06/2024 11:[address] [facility] POTASSIUM S/P/B 4.0 3.5 - 5.1 MMOL/L 10/06/2024 11:03 AM [facility] CHLORIDE S/P/B 110 97 - 115 MMOL/L 10/06/2024 11:[address] [facility] CO2 24.8 21 - 32 MMOL/L 10/06/2024 11:[address] [facility] CALCIUM S/P/B 8.6 8.5 - 10.1 MG/DL 10/06/2024 11:03 AM [facility] ANION GAP 5.2 2 - 10 MMOL/L 10/06/2024 11:03 AM [facility] BUN CREATININE RATIO 31.2(H) 6 - 26 10/06/2024 11:03 AM [facility] GFR ESTIMATE 58(L) >90 ML/MIN/1.7 3 M2 10/06/2024 11:03 AM [facility] Comment: NOTE: eGFR is not calculated for patients <18 years of age or gender unknown. This is an estimated GFR calculation using the new CKD EPI creatinine equation without race and so does not require a correction factor for race. This estimated GFR should not be used for calculating drug doses. 10/06/2024 5:58 AM CDT Brunilda Fierro GARYNP LABORATORY Final Res ult [facility] [address] [place] [address], [place] [phone] * (ABNORMAL) CBC W/DIFF AUTOMATED (10/06/2024 5:58 AM CDT) Only the most recent of5 resultswithin the time period is included. WBC 5.89 4.5 - 11.0 x10'3/uL 10/06/2024 6:[address] [facility] RBC 3.76(L) 4.20 - 5.40 x10'6/uL 10/06/2024 6:[address] [facility] HGB 11.7(L) 12.0 - 16.0 G/DL 10/06/2024 6:[address] [facility] HCT 34.8(L) 38.0 - 48.0 % 10/06/2024 6:[address] [facility] MCV 92.6 81.0 - 99.0 FL 10/06/2024 6:[address] [facility] MCH 31.1(H) 27.0 - 31.0 PG 10/06/2024 6:[address] [facility] MCHC 33.6 32.0 - 36.0 G/DL 10/06/2024 6:[address] [facility] RDW 13.0 11.5 - 14.5 % 10/06/2024 6:[address] [facility] PLT 269 130 - 400 x10'3/uL 10/06/2024 6:[address] [facility] MPV 9.9 9.3 - 12.2 FL 10/06/2024 6:[address] [facility] DIFFERENTIAL TYPE AUTOMATED DIFFERENTIAL 10/06/2024 6:[address] [facility] NEUTROPHILS % 49.5 % 10/06/2024 6:[address] [facility] LYMPHOCYTES % 34.8 % 10/06/2024 6:[address] [facility] MONOCYTES % 9.7 % 10/06/2024 6:[address] [facility] EOSINOPHILS 4.6 % 10/06/2024 6:[address] [facility] BASOPHILS 1.2 % 10/06/2024 6:[address] [facility] IMMATURE GRANS % 0.2 % 10/07/19 6:[address] [facility] ABS. NEUTROPHILS 2.92 1.80 - 7.70 x10'3/uL 10/06/2024 6:[address] [facility] ABS. LYMPHOCYTES 2.05 1.00 - 4.80 x10'3/uL 10/06/2024 6:[address] [facility] ABS. MONOCYTES 0.57 0.24 - 0.86 x10'3/uL 10/06/2024 6:[address] [facility] ABS. EOSINOPHILS 0.27 0.04 - 0.36 x10'3/uL 10/06/2024 6:[address] [facility] ABS. BASOPHILS 0.07 0.01 - 0.08 x10'3/uL 10/06/2024 6:[address] [facility] ABS. IMMATURE GRANULOCYTES 0.01 0.00 - 0.49 x10'3/uL 10/06/2024 6:[address] [facility] 10/06/2024 5:58 AM CDT us Brunilda Fierro APNP LABORATORY Final Res ult [facility] [address] [place] [address], * MRI THOR SPINE WO CON (10/04/2024 7:59 PM CDT) Anatomical Region Laterality Modality Spine Magnetic Resonan ce 10/04/2024 8:27 PM CDT Impressions 10/04/2024 8:30 PM CDT IMPRESSION: 1. Unremarkable noncontrasted appearance of the thoracic spinal cord. 2. Mild degenerative changes of the thoracic spine. Referred By: Interpreted By: Brenda Umana DO, 10/04/2024 8:27 PM Narrative 10/04/2024 8:30 PM CDT [facility] [address] [place], [place] [address] EXAMINATION: MRI THOR SPINE WO CON REPORT [...] Procedure Note Brenda Umana DO - 10/04/[address] [facility] [address] [address] EXAMINATION: MRI THOR SPINE WO CON REPORT [...] By: Brenda Umana DO, 10/04/2024 8:27 PM Brunilda Fierro SOO MRI Final Res ult * MRI BRAIN [...] 10:11 PM Narrative 10/04/2024 10:13 PM CDT [address] [address] EXAMINATION: MRI brain without contrast. EXAM DATE/TIME: [...] Procedure Note Epifanio Eng MD - 10/04/[address] [address] EXAMINATION: MRI brain without contrast. EXAM DATE/TIME: [...] Epifanio Eng MD, 10/04/2024 10:11 PM Brunilda VANN MRI Final Res ult * CULTURE, FUNGUS W/ STAIN (10/04/2024 12:14 PM CDT) SPEC DESCRIPTION CEREBROSPINAL FLUID 10/04/2024 12:[address] [facility] SPECIAL REQUESTS NO SPECIAL REQUEST 10/04/2024 12:[address] [facility] STAIN RESULT: NO YEAST OR FUNGAL ELEMENTS SEEN 10/04/2024 12:[address] [facility] CULTURE RESULT NO FUNGUS ISOLATED AT 4 WEEKS. 11/04/2024 4:[address] [facility] CEREBROSPINAL FLUID SPECIMEN / Unknown 10/04/2024 12:14 PM CDT 10/04/2024 12:24 PM CDT Brunilda VANN MICROBIOLOGY - GENERAL OR DERABLES Final Result [facility] [address] [place] [address], [place] [phone] * CULTURE, CSF W/ GRAM STAIN (10/04/2024 12:14 PM CDT) SPEC DESCRIPTION CEREBROSPINAL FLUID 10/04/2024 12:[address] [facility] SPECIAL REQUESTS NO SPECIAL REQUEST 10/04/2024 12:[address] [facility] GRAM STAIN RESULT NO WHITE BLOOD CELLS SEEN 10/04/2024 12:[address] [facility] GRAM STAIN RESULT NO ORGANISMS SEEN 10/04/2024 12:[address] [facility] CULTURE RESULT NO GROWTH 5 DAYS 09/22 7:[address] [facility] CEREBROSPINAL FLUID SPECIMEN / Unknown 10/04/2024 12:14 PM CDT 10/04/2024 12:24 PM CDT Brunilda VANN MICROBIOLOGY - GENERAL OR DERABLES Final Result [facility] [address] [place] [address], [place] [phone] * CELL COUNT, CSF (10/04/2024 12:14 PM CDT) TUBE NUMBER 3 10/04/2024 2:[address] [facility] TOTAL VOLUME (CSF) 13.0 ML 10/04/2024 2:[address] [facility] COLOR (CSF) COLORLESS 10/04/2024 2:[address] [facility] CLARITY (CSF) CLEAR 10/04/2024 2:[address] [facility] RBC (CSF) 0 CELLS/UL 10/04/2024 2:[address] [facility] TOTAL NUCLEATED CELL (CSF) 0 0 - 5 CELLS/UL 10/04/2024 2:[address] [facility] CSF, LUMBAR 10/04/2024 12:1 4 PM CDT us Brunilda VANN BODY FLUIDS AND STOOLS OR DERABLES Final Result Performing Organization Address [facility] Co de Phone Number [facility] [address] [place] [address], [place] [phone] * (ABNORMAL) GLUCOSE CSF (10/04/2024 12:14 PM CDT) GLUCOSE (CSF) 75(H) 40 - 70 MG/DL 10/04/2024 12:[address] [facility] CEREBRAL SPINAL FLUID (CSF, LUMBAR) 10/04/2024 12:14 PM CDT Brunilda VANN BODY FLUIDS AND STOOLS OR DERABLES Final Result Performing Organization Address [facility] de Phone Number [facility] [address] [place] [address], [place] [phone] * PROTEIN TOTAL CSF (10/04/2024 12:14 PM CDT) TOTAL PROTEIN (CSF) 45 15 - 45 MG/DL 10/04/2024 12:[address] [facility] CEREBRAL SPINAL FLUID (CSF, LUMBAR) 10/04/2024 12:14 PM CDT us Brunilda VANN BODY FLUIDS AND STOOLS OR DERABLES Final Result Performing Organization Address City/[facility] Co de Phone Number [facility] [address] [place] [address], [place] [phone] * OLIGOCLONAL BANDS (10/04/2024 12:14 PM CDT) OLIGOCLONAL BANDS Absent Absent 025 4:48 PM CDT [facility] Comment: No Oligoclonal bands are identified in the patient's CSF when compared to the corresponding serum sample. Oligoclonal bands are present in the CSF of more than 85% of patients with clinically definite multiple sclerosis (MS). To distinguish between oligoclonal bands in the CSF due to a peripheral gammopathy and oligoclonal bands due to local production in the OCCUPATIONAL HEALTH PHYSICIAN, serum and CSF should be tested simultaneously. Oligoclonal bands can however be observed in a variety of other diseases, e.g., subacute sclerosing panen- cephalitis, inflammatory polyneuropathy, OCCUPATIONAL HEALTH PHYSICIAN lupus, and brain tumors and infarctions. The clinical significance of a numerical band count, determined by isoelectric focusing, has not been definitively defined. The data should be interpreted in conjunction with all pertinent clinical and laboratory data for this patient. Test Performed by [facility], [facility], [address] [place], [place] Fernando Finney M.D., Ph.D., Director of Laboratories , [place] [id number] CEREBRAL SPINAL FLUID (CSF & SERUM) 10/04/2024 12:14 PM CDT Brunilda Fierro APNP BODY FLUIDS AND STOOLS OR DERABLES Final Result [facility] [id number] [place], [place] , * IR LUMB PUNCTURE DIAGNOSTIC (10/04/2024 12:13 PM CDT) Anatomical Region Laterality Modality Spine Interventional R adiology 10/04/2024 1:45 PM CDT Impressions 10/04/2024 1:49 PM CDT =====IMPRESSION:===== Lumbar puncture performed using fluoroscopic guidance. Ordered By: BRUNILDA FIERRO Interpreted By: Nii Jose MD, 10/04/2024 1:45 PM Narrative 10/04/2024 1:49 PM CDT [address] [address] Examination: Lumbar puncture Exam date/time: 10/04/2024 11:49 [...] overlies the lumbar spinal canal. Procedure Note Nii Jose MD - 10/04/[address] [address] Examination: Lumbar puncture Exam date/time: 10/04/2024 11:49 [...] Jose MD, 10/04/2024 1:45 PM Brunilda Fierro AP INTERVENTIONAL RADIOLOGY Final Result * IGG SYNTHESIS RATE (10/04/2024 12:10 PM CDT) CSF IGG SYNTH RATE minus2.0 minus9.9- 3.3 mg/24 h 10/07/2024 7:14 AM CDT [facility] JUAN SMITH IGG INDEX (CSF) 0.53 <0.70 7:14 AM CDT [facility] JU[facility] SMITH Comment: The IgG Synthesis rate, CSF and IgG index, CSF are two formulae for estimating the amount of IgG produced in the central nervous system. Evidence of increased synthesis of IgG provides support for the diagnosis of multiple sclerosis. ALBUMIN (CSF) 16.9 8.0 - 42.0 mg/dL 10/07/2024 7:14 AM CDT [facility] JU[facility] SMITH IGG (CSF) 1.7 0.8 - 7.7 mg/dL 10/07/2024 7:14 AM CDT [facility] JUAN SMITH IMMUNOGLOBULIN G 866 600 - 1,540 mg/dL 10/07/2024 7:14 AM CDT [facility] ALBUMIN S/P/B 4.6 3.6 - 5.1 g/dL 10/07/2024 7:14 AM CDT [facility] Comment: Test Performed by [facility], [facility], [address] [place] [address] Fernando Finney M.D., Ph.D., Director of Laboratories , [facility] [id number] CEREBRAL SPINAL FLUID (CSF & SERUM) 10/04/2024 12:10 PM CDT Brunilda VANN LABORATORY Final Res ult [facility] [place] [place] [id number] [place] [address], [place] [phone] * PROTIME/INR, VENOUS (10/04/2024 10:13 AM CDT) PROTIME 11.2 10.2 - 12.9 SEC 10/04/2024 10:[address] [facility] INR 1.0 10/04/2024 10:[address] [facility] Comment: Recommended INR Therapeutic Goals: 2.0-3.0 Routine Therapy 2.5-3.5 Mechanical Prosthetic Valves (High Risk) 10/04/2024 10:1 3 AM CDT Brunilda VANN LABORATORY Final Res ult [facility] [address] [place] [address], [place] [phone] * (ABNORMAL) COMPREHENSIVE METABOLIC PANEL (10/04/2024 9:08 AM CDT) Only the most recent of2 resultswithin the time period is included. [facility] GLUCOSE 101(H) 70 - 99 MG/DL 10/04/2024 10:[address] [facility] BUN 29(H) 7 - 18 MG/DL 10/04/2024 10:[address] [facility] CREATININE S/P/B 1.24(H) 0.55 - 1.02 MG/DL 10/04/2024 10:[address] [facility] SODIUM S/P/B 134(L) 136 - 145 MMOL/L 10/04/2024 10:[address] [facility] POTASSIUM S/P/B 3.7 3.5 - 5.1 MMOL/L 10/04/2024 10:[address] [facility] CHLORIDE S/P/B 108 97 - 115 MMOL/L 10/04/2024 10:[address] [facility] CO2 19.8(L) 21 - 32 MMOL/L 10/04/2024 10:[address] [facility] CALCIUM S/P/B 9.1 8.5 - 10.1 MG/DL 10/04/2024 10:[address] [facility] BILIRUBIN TOTAL S/P/B 1.4(H) 0.2 - 1.2 MG/DL 10/04/2024 10:[address] [facility] Comment: THIS ASSAY IS NOT RECOMMENDED FOR PATIENTS UNDERGOING TREATMENT WITH ELTROMBOPAG DUE TO THE POTENTIAL FOR FALSELY ELEVATED RESULTS. TOTAL PROTEIN S/P/B 7.9 6.4 - 8.2 G/DL 10/04/2024 10:[address] [facility] ALBUMIN S/P/B 3.9 3.4 - 5.0 G/DL 10/04/2024 10:[address] [facility] AST 27 15 - 37 U/L 10/04/2024 10:[address] [facility] ALT 20 14 - 55 U/L 10/04/2024 10:[address] [facility] ALKALINE PHOSPHATASE S/P/B 83 50 - 136 U/L 10/04/2024 10:[address] [facility] ANION GAP 6.2 2 - 10 MMOL/L 10/04/2024 10:[address] [facility] BUN CREATININE RATIO 23.4 6 - 26 10/04/2024 10:[address] [facility] A/G RATIO 1.0 1.0 - 2.0 RATIO 10/04/2024 10:[address] [facility] GFR ESTIMATE 44(L) >90 ML/MIN/1.7 3 M2 10/04/2024 10:[address] [facility] Comment: NOTE: eGFR is not calculated for patients <18 years of age or gender unknown. This is an estimated GFR calculation using the new CKD EPI creatinine equation without race and so does not require a correction factor for race. This estimated GFR should not be used for calculating drug doses. 10/04/2024 9:08 AM CDT us Brunilda Fierro APNP LABORATORY Final Res ult [facility] [address] [place] [address], [place] [phone] * MRI CERV SPINE WO CON (10/03/2024 [...] 12:02 AM Narrative 10/04/2024 12:18 AM CDT [facility] [address] [place], [place] [address] EXAMINATION: MRI Cervical Spine without Contrast. Multiplanar, [...] Procedure Note Tiffanie George MD - 10/04/[address] [address] EXAMINATION: MRI Cervical Spine without Contrast. Multiplanar,multisequence [...] images 31-32, and on axial series 9 -37, with CSF pulsation or other motion artifact [...] images, sagittal STIR images, and on axial [id number]. Differential again includes demyelinating plaque, focalmyelopathy, with [...] MD, 10/04/2024 12:02 AM us Brunilda Fierro APNP MRI Final Res ult * USE ECHOCARDIOGRAM W CON (10/03/2024 3:00 PM CDT) Anatomical Region Laterality Modality NA Echocardiogram 10/03/2024 1:48 PM CDT Narrative 10/03/2024 5:00 PM CDT Echocardiography Report Pat.Name: NORMA IVERSON Pat.ID: [id number] .Date: 10/03/2024 Exam Time: 1:48:00 PM Study Type:ECHO WITH CARDIAC DOPPLER COMP Height: 61 in Weight: 117 lb BSA: 1.5 m2 Age: 4 1945,79Y Sex: F BP: 171/82 HR: 96 bpm Sonogrphr: Taylor Rosales Pat. Stat.:Inpatient Room: [facility] Reason for Study:Hypertension urgency Procedures: 2D, M-mode, [...] cm2 (3-5) AV mnPG 4.5 mmHg Area (Aresn) 2.55 cm2 (3-5)* MV Forward Flow MV [...] % Left Atrial Eje 21.6 % [place] (End 3.4 cm [place] (End 3.6 cm Left Atrial ED 10 ml/m2 Left Atrial ED 13.5 ml/m2 [place] (End 4.5 cm [place] (End 3.9 cm Left Atrial ES 23.1 ml/m2 Left Atrial ES 17.2 ml/m2 Global Longitud 33.3 % Global Longitud 6.6 % HR 86 bpm HR 91 bpm SV 13.1 ml/m2 SV 3.7 ml/m2 LA Biplane CO 1.3 l/min Left Atrial ES 21.4 ml/m2 Left Atrial Eje 44.5 % Global Longitud 19.9 % [place] (End 3.6 cm HR 86 bpm Left Atrial ED 11.9 ml/m2 SV 9.5 ml/m2 [place] (End 4.5 cm Left Ventricle Left Ventricula [...] 59.7 % Global Longitud 36.7 % [place] (End 3.1 cm HR 91 bpm Volume (Diastol 7.7 ml/m2 SV 11.5 ml/m2 [place] (End 4.2 cm Right Ventricle Right Ventricul 17 centimeters per second Right Ventricul 15.6 % Right Ventricul 11.5 square centimeters per square meter Global Longitud -14.1 % [place] (End 7.3 cm Global Longitud -16.2 % [place] (End 6.3 cm Global Longitud -11.5 % Right Ventricul 9.7 square centimeters per square meter HR 91 bpm 2D LVPW LVPWd 1.11 cm Left Atrium LA a-p 3.35 cm (2.8-3.4) [place] (Sys 4.8 cm LA VOLBP 24.8 ml [place] (Sys 3.67 cm End Diastolic A 0.97 [...] cm2 Cardiovascular 2.14 cm Right Atrium [place] (Sys 4.2 cm RA Single Plane Right Atrium Ar 9.44 cm2 Volume (Systole 11.7 ml/m2 Right Ventricle RVIDd 2.09 cm/m2 RVIDd 3.26 cm Dcauz-as-doml v 0.88 MMODE Tricuspid Valve Tricuspid annul 1.63 cm <Electronic Signature> 10/03/2024 05:00 PM Oscar Dang M.D. Procedure Note Oscar Dang MD - 10/03/2024 Echocardiography Report Pat.Name: NORMA IVERSON.ID: [id number] St.Date: 10/03/2024 Exam Time: 1:48:00 PM Study Type:ECHO WITH CARDIAC DOPPLER COMP Height: 61 in Weight: 117 lb BSA: 1.5 m2 Age: 4 1945,79Y Sex: F BP: 171/82 HR: 96 bpm Sonogrphr: Taylor Rosales Pat. Stat.:Inpatient Room: [facility] Reason for Study:Hypertension urgency Procedures: 2D, M-mode, [...] % Left Atrial Eje 21.6 % Major Greenwood (End 3.4 cm Major Greenwood (End 3.6 cm Left Atrial ED 10 ml/m2 Left Atrial ED 13.5 ml/m2 Major Greenwood (End 4.5 cm Major Greenwood (End 3.9 cm Left Atrial ES 23.1 ml/m2 Left Atrial ES 17.2 ml/m2 Global Longitud 33.3 % Global Longitud 6.6 % HR 86 bpm HR 91 bpm SV 13.1 ml/m2 SV 3.7 ml/m2 LA Biplane CO 1.3 l/min Left Atrial ES 21.4 ml/m2 Left Atrial Eje 44.5 % Global Longitud 19.9 % Major [place] (End 3.6 cm HR 86 bpm Left Atrial ED 11.9 ml/m2 SV 9.5 ml/m2 Major [place] (End 4.5 cm Left Ventricle Left Ventricula [...] 59.7 % Global Longitud 36.7 % Major [place] (End 3.1 cm HR 91 bpm Volume (Diastol 7.7 ml/m2 SV 11.5 ml/m2 Major [place] (End 4.2 cm Right Ventricle Right Ventricul 17 centimeters per second Right Ventricul 15.6 % Right Ventricul 11.5 square centimeters per square meter Global Longitud -14.1 % Major [place] (End 7.3 cm Global Longitud -16.2 % Major [place] (End 6.3 cm Global Longitud -11.5 % Right Ventricul 9.7 square centimeters per square meter HR 91 bpm 2D LVPW LVPWd 1.11 cm Left Atrium LA a-p 3.35 cm (2.8-3.4) Major [place] (Sys 4.8 cm LA VOLBP 24.8 ml Major [place] (Sys 3.67 cm End Diastolic A 0.97 [...] cm2 Cardiovascular 2.14 cm Right Atrium Major [place] (Sys 4.2 cm RA Single Plane Right Atrium Ar 9.44 cm2 Volume (Systole 11.7 ml/m2 Right Ventricle RVIDd 2.09 cm/m2 RVIDd 3.26 cm Imtdc-jg-wfws v 0.88 MMODE Tricuspid Valve Tricuspid annul 1.63 cm <Electronic Signature> 10/03/2024 05:00 PM Oscar Dang M.D. us Brunilda [facility] ECHO Final Res ult * (ABNORMAL) PRO-BRAIN NATRIURETIC PEPTIDE (10/03/2024 5:00 AM CDT) PRO-B TYPE NATRIURETIC PEPTIDE 510(H) <450 PG/ML 10/03/2024 6:[address] [facility] Comment: CUT POINTS ESTABLISHED BY INTERNATIONAL [...] FOR ACUTE CHF. 10/03/2024 5:00 AM CDT us Brunilda [facility]ANN LABORATORY Final Res ult [facility] [address] [place] [address], * TROPONIN, QUANT (10/03/2024 5:00 AM CDT) Only the most recent of3 resultswithin the time period is included. TROPONIN I HIGH SENSITIVITY 10 <54 ng/L 10/03/2024 5:[address] [facility] Comment: HIGH DOSES OF BIOTIN, TROPONIN-SPECIFIC AUTOANTIBODIES, AND ANTIBODY THERAPY CONTAINING HAMA MAY INTERFERE WITH THIS TEST RESULT. CORRELATION TO CLINICAL HISTORY AND PRESENTATION RECOMMENDED. 10/03/2024 5:00 AM CDT Augusta Humphrey MD LABORATORY Final Re sult [facility] [address] [place] [id number], * MAGNESIUM (10/03/2024 5:00 AM CDT) Only the most recent of2 resultswithin the time period is included. Pathologist [facility] MAGNESIUM 2.1 1.8 - 2.4 MG/DL 10/03/2024 5:[address] [facility] 10/03/2024 5:00 AM CDT Augusta Humphrey MD LABORATORY Final Re sult [facility] [address] [place] [address], * CTA CHEST FOR DISSECTION (10/02/2024 11:49 [...] 2:36 AM Narrative 10/03/2024 3:01 AM CDT [place] [address] EXAMINATION: CTA Chest with Intravenous Contrast, Axial [...] Procedure Note Tiffanie George MD - 10/03/[address] [address] EXAMINATION: CTA Chest with Intravenous Contrast, Axial [...] By: Tiffanie George MD, 10/03/2024 2:36 AM Augusta Humphrey MD CT Final Re sult * ECG 12 lead (10/02/2024 4:32 PM CDT) 10/02/2024 4:32 PM CDT Narrative [facility] RAD - 10/03/2024 9:14 AM CDT [facility] [address] Test Date: 2024-10-02 Pat Name: NORMA IVERSON Department: 41 Room: C03 Gender: Female 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: [id number] : 1945 Requested By: CAT ZACARIAS Order Number: [id number] Reading MD: Binta Stout Measurements Intervals [place] Rate: 65 P: 34 OK: 179 QRS: 16 QRSD: 94 T: 31 QT: 403 QTc: 421 Interpretive Statements SINUS RHYTHM No previous ECG available for comparison Procedure Note Binta Stout MD - 10/03/2024 [facility] [address] Test Date: 2024-10-02 Pat Name: NORMA IVERSNO Department: 41 Room: C03 Gender: Female 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 No acute pulmonary infiltrate or consolidation. 2. Heart size towards upper limits normal. No acute pulmonary vascular congestion. Ordered By: CAT ZACARIAS Interpreted By: Yrn Antunez, 10/02/2024 2:48 PM Narrative 10/02/2024 2:51 PM CDT [place] [address] IMAGING STUDIES: XR CHEST PORTABLE DATE: 10/02/2024 [...] Procedure Note Yrn Antunez MD - 10/02/2024 [place] [id number] IMAGING STUDIES: XR CHEST PORTABLEDATE: 10/02/2024 2:37 [...] Yrn Antunez, 10/02/2024 2:48 PM us [facility] Final Result from Last 3 Months Insurance [employer] Advance Directives * Full Code (Latest Code Status on File) Date Activated Date Inactivated Comments 10/02/2024 9:22 PM 10/06/2024 2:33 PM Care Teams Final Operations Technician Relationship Specialty Start Date End Date Floresita White DO [address] [place] [address] PCP - General FAMILY PRACTICE 08/29/24
[2024-12-07 12:34] LABS: Hematocrit 35.9 % (37.0-47.0); Hemoglobin 11.8 g/dL (12.0-15.0); Immature Granulocyte Percent A 0.2 % (0-0.5); Lymphocytes Absolute Auto 1.83 K/mm3 (0.9-3.2); Mean Corpuscular HGB Conc 32.9 g/dl (32-36); Mean Corpuscular Hemoglobin 31.5 pg (26-34); Mean Corpuscular Volume 95.7 fl (80-100); Nucleated Red Blood Cells Absolute Auto 0.000 K/mm3 (0.0-0.012); Nucleated Red Blood Cells Perc 0.0 % (0.0-0.2); Platelet Count Result 286 k/mm3 (150-375); Red Blood Count 3.75 M/mm3 (4.2-5.4); White Blood Count 8.2 K/mm3 (4.5-10.0)
--- NOTE | 2024-12-07 12:42 | P.SEDATION_ITS ---
Moderate Sedation Note-Pt Data Patient Data Allergies Allergy/AdvReac Type Severity Reaction Status Date / Time nystatin (From Bio-Statin) AdvReac Unknown leg cramp Verified 12/07/24 12:18 Home Medications ?Medication ?Instructions ?Recorded ?Confirmed ?Type fluticasone 500 mcg-salmeterol 50 1 inh inhalation BID #180 ea 10/05/23 12/06/24 Rx mcg/dose blistr powdr for inhalation (Wixela Inhub) rosuvastatin 5 mg tablet See Rx Instructions .Route 0 08/24/24 12/06/24 Rx .COMPLEX #90 tabs trazodone 150 mg tablet See Rx Instructions .Route 0 10/09/24 12/06/24 Rx .COMPLEX #90 tabs albuterol sulfate 90 mcg/actuation 1 puff inhalation Q 4H PRN 10/19/24 12/06/24 Rx aerosol inhaler shortness of breath or wheez ing #8.5 grams empagliflozin 10 mg tablet 10 mg PO DAILY #90 tabs 05/1612/06/24 Rx (Jardiance) losartan 50 mg tablet 50 mg PO DAILY #90 tabs 10/2312/07/24 Rx trazodone 50 mg tablet 50 mg PO QHS PRN insomnia #9 0 tabs 11/07/24 12/06/24 Rx aspirin 81 mg tablet,delayed 81 mg PO DAILY 11/16/24 1 History release spironolactone 50 mg tablet 50 mg PO DAILY #90 tabs 12/06/24 Rx Current Medications: Active Medications Sodium Chloride (Normal Saline Iv) 500 mls @ 100 mls/hr IV CONT .Q5H MARY Sedation/Anesthesia: No previous sedation/anesthesia problems (including family history). [facility] Past Medical History Medical History (Updated 11/16/24 @ 05:53 by Matthew Minor DO) HFrEF (heart failure with reduced ejection fraction) Mild aortic valve regurgitation COVID High cholesterol Asthma Wears glasses Benign hypertension with CKD (chronic kidney disease) stage III Aortic atherosclerosis CT scan 11/2019 CAD (coronary artery disease) CT scan 09/2019 Urge incontinence of urine Bilateral carotid artery stenosis 06/2018 Stage 3a chronic kidney disease (CKD) Osteopenia Insomnia Mild persistent asthma Major depressive disorder, recurrent, mild Peripheral neuropathy Pure hypercholesterolemia, unspecified Hypertension Surgical History Surgical History History of unicondylar arthroplasty of right knee (05/2023) History of foot surgery 2008, mynorwilliam History of hysterectomy History of repair of rectocele History of repair of rotator cuff 2017, right Family History Family History Unknown Cancer Heart disease Daughter Breast cancer Father Hypercholesteremia Mother Hypercholesteremia Other Asthma Diabetes mellitus Hypertension Social History Social History (Reviewed 10/25/24 @ 14:28 by Arelis French [facility]) Smoking status: Never smoker Second hand tobacco smoke exposure: No Alcohol intake: never Alcohol use details: socially Substance use: never Substance use type: does not use and tranquilizers Do You Feel Safe in your Home?: Yes Lack of Transportation: No Lack of Food: Never True Current Housing: I Have Housing Concerned About Future Housing: No Difficulty Paying Gas/Electric Bills: No Difficulty Paying for Meds: No Currently Unemployed: No Education: Associate Degree Difficulty w/ Childcare or Family Care: No Living arrangements: with family Occupation/Education: retired Gender identity (if verbalized by the patient): Female Sexual Orientation (if Verbalized by the Patient): Straight or Heterosexual Spiritual care concerns: No Agree to blood products: Yes Mod Sed Physical Exam Physical Exam Pre Procedural Exam: Normal: Heart Size, Heart Rate and Heart Rhythm Hours since solid foods: 12 Hours since liquid intake: 12 Mallampati Classification: class II Internal Medicine - PN: Obj Da Vital Signs Vital Signs: Vital Signs - 24 hr 12/07/24 12:22 Pulse Rate 82 Respiratory Rate 16 Blood Pressure 111/50 L Pulse Oximetry 96 Oxygen Delivery Room Air Meds/Results Medications: Active Medications Generic Name Dose Route Start Last Admin Trade Name Freq PRN Reason Stop Dose Admin Sodium Chloride 500 mls @ 100 mls/hr 12/07/24 11:30 Normal Saline Iv IV CONT .Q5H MARY Labs 12/07/24 12:21 12/07/24 12:21 Labs: Laboratory Results - last 24 hr 12/07/24 12:21 WBC 8.2 RBC 3.75 L Hgb 11.8 L Hct 35.9 L MCV 95.7 MCH 31.5 MCHC 32.9 RDW 13.1 Plt Count 286 MPV 9.1 Immature Gran % (Auto) 0.2 Neut % (Auto) 66.8 Lymph % (Auto) 22.5 [place] % (Auto) 7.0 Eos % (Auto) 2.5 Baso % (Auto) 1.0 Lymph # (Auto) 1.83 [place] # (Auto) 0.6 Eos # (Auto) 0.2 Baso # (Auto) 0.1 Abs Immat Gran (auto) 0.02 Absolute Neuts (auto) 5.5 Absolute Nucleated RBC 0.000 Nucleated RBC % 0.0 ASA Classification/Sedation ASA Classification/Sedation ASA Class: III Emergent: No Risks: Risks, benefits and alternatives explained and patient/family accepted plan for sedation. Patient re-evaluated immediately prior to sedation.
--- NOTE | 2024-12-07 12:42 | WPDHPUPDATE1 ---
History and Physical Update Update Date/Time: 12/07/24 12:42 History and Physical has been reviewed, including an updated exam of the patient. There are NO changes in the patient's condition. Risks, benefits, and alternatives have been discussed and questions answered. Patient agrees to proceed with procedure.
[2024-12-07 12:56] LABS: Anion Gap 12 mmol/L (4-12); Blood Urea Nitrogen 29 mg/dL (7-17); Calcium 9.0 mg/dL (8.4-10.2); Carbon Dioxide 19 mmol/L (22-30); Chloride 106 mmol/L (98-107); Estimated CRCL calculation 23 ml/min; Estimated Glomerular Filt Rate 39; Glucose 93 mg/dL (65-110); Potassium 4.5 mmol/L (3.4-5.0); Sodium 137 mmol/L (137-145)
--- NOTE | 2024-12-07 13:19 | P.PCNCC_ITS ---
Cardiac Cath Procedure Note Date of procedure:: 12/07/24 Performing physician:: CATHETERIZATION LABORATORY REPORT Procedure Date: 12/07/2024 Referring Physician: Dr. Minor Anesthesia: Versed and Fentanyl were ordered and given in my presence at 1308, procedure ended at 1316. Supervision of nurse monitored moderate sedation with 1mg Versed and 50mcg Fentanyl was provided for 8 minutes. Pre-op Diagnosis: Abnormal stress test Post-op Diagnosis: Abnormal stress test Procedure(s): Left heart catheterization with coronary angiography Access Site: Right radial artery Brief History and Clinical Indications: All risks, benefits and alternatives to left heart catheterization with or without percutaneous coronary intervention was discussed at length with the patient. Risk of complications including but not limited to bleeding, infection, arrhythmia, stroke, worsening kidney function, blood loss, groin hematoma, limb loss, emergency coronary artery bypass grafting, and even were discussed with the patient and all questions were answered. The patient understood and wished to proceed. Time out called, patient name, date of , medical record number, allergies, procedure performed, identify [employer] Insulation Supervisor, patient and staff member concurred with accurate data, procedure carried on. Findings: LEFT HEART CATHETERIZATION FINDINGS: 1. Left main: The left main coronary artery has 10-20% ostial stenosis.. 2. Left anterior descending: The LAD in its proximal body has 2 focal areas of heavily calcified 20-30% stenosis. The remainder of the vessel and its branches have diffuse calcific 10% stenosis. 3. Left circumflex: The left circumflex artery and the main marginal branches have mild luminal irregularities without any significant obstructive angiographic disease. 4. Right coronary artery: The RCA is a moderate caliber dominant vessel that is angiographically free of stenosis. 5. Left ventricle: A. End-diastolic pressure 15 mmHg. B. LV gram deferred. C. No significant gradient across aortic valve on catheter pullback. 6. Opening AO pressure 123/63 and closing AO pressure 110/55 Description of Procedure: Informed consent signed and placed in the chart. Patient transferred to cardiac cath lab manager room. Prepped and draped in usual sterile fashion. 2% lidocaine injected subcutaneously in right wrist area. 22-gauge venipuncture catheter used to access the right radial artery with the Seldinger technique. 6-FR slender sheath placed in right radial artery. Nitroglycerin 200mcg, Verapamil 2.5mg, and Heparin 5000U was given intraarterial through the sheath. J wire advanced under fluoroscopy. 5F TIG diagnostic catheter crossed into the left ventricle for LVEDP and aortic valve gradient. After pullback, the catheter was used to engage the LMCA and RCA. Multiple orthogonal angiogram obtained and reviewed Hemostasis was achieved by application of TR band. Assessment: Mild CAD Post Operative Condition: Stable No significant blood loss Disposition: Home Plan: The patient will be monitored in the recovery area. DAPT for 1 year followed by ASA indefinitely. The above findings were discussed with the referring physician. Continue aggressive medical therapy and risk factor modification. Further recommendations and management per primary cardiology team. [facility]
[2024-12-07] MEDS: SODIUM CHLORIDE 0.9% IV 1,000 ML 125 ML IV CONT (13:45)
--- NOTE | 2024-12-07 17:30 | SUR.PHASEII ---
RN in to discharge pt. pt. attempted to use R hand. before RN could stop pt. pt. started to bleed at puncture site. RN held pressure above puncture site. TR band placed over puncture site and inflated with 5 ml of air. hematoma compressed out. tissue soft and nontender.
== END 2024-12-07 19:45 | disposition home or self-care (01) ==
PROVIDERS: PCP Family Medicine; Visit Provider Internal Medicine
PROC: 4A023N7 Measurement of Cardiac Sampling and Pressure, Left Heart, Percutaneous Approach (ICD-10-PCS; CPT 93452; principal; 2024-12-07 13:00)
DX: I25.10 Atherosclerotic heart disease of native coronary artery without angina pectoris (principal); I35.1 Nonrheumatic aortic (valve) insufficiency; I11.0 Hypertensive heart disease with heart failure; I50.20 Unspecified systolic (congestive) heart failure; E78.00 Pure hypercholesterolemia, unspecified; J45.909 Unspecified asthma, uncomplicated; I12.9 Hypertensive chronic kidney disease with stage 1 through stage 4 chronic kidney disease, or unspecified chronic kidney disease; N18.31 Chronic kidney disease, stage 3a; N39.41 Urge incontinence; F33.0 Major depressive disorder, recurrent, mild; I70.0 Atherosclerosis of aorta; M85.88 Other specified disorders of bone density and structure, other site; G47.00 Insomnia, unspecified; G62.9 Polyneuropathy, unspecified; Z79.51 Long term (current) use of inhaled steroids; Z79.84 Long term (current) use of oral hypoglycemic drugs; Z79.82 Long term (current) use of aspirin; Z98.890 Other specified postprocedural states; Z86.79 Personal history of other diseases of the circulatory system; Z80.3 Family history of malignant neoplasm of breast; Z82.49 Family history of ischemic heart disease and other diseases of the circulatory system
CPT/HCPCS: 36415; 80048; 85025; 93458; C1769; C1887; C1894; J1644; J2003; J2250; J2305; J3010; J7040